=== PATIENT | female | born 1945 | race Caucasian/White ===

== ENCOUNTER → 2016-03-31 | Outpatient (CLI) | payer MEDICARE ==
--- NOTE | 2016-03-31 15:33 | US ---
EXAMINATION TYPE: US venous doppler duplex LE LT DATE OF EXAM: 03/31/2016 3:19 PM COMPARISON: NONE CLINICAL HISTORY: LLE Pain M79.662. Patient takes aspirin daily, left ankle swollen and painful, aj ent unsure if she ever had a previous DVT. TECHNIQUE: Duplex Doppler ultrasound examination of the left lower extremity. FINDINGS: SIDE PERFORMED: left VESSELS IMAGED: External Iliac Vein (EIV) Common Femoral Vein Deep Femoral Vein Greater Saphenous Vein * Femoral Vein Popliteal Vein Small Saphenous Vein * Proximal Calf Veins (* superficial vessels) Left Leg: Negative for DVT Results called to Veronica in the office at the time of the exam. IMPRESSION: No evidence for DVT within the left lower extremity imaged from the groin to the upper calf.
--- NOTE | 2016-03-31 16:01 | XR ---
EXAMINATION TYPE: XR ankle complete LT DATE OF EXAM: 03/31/2016 3:52 PM COMPARISON: NONE HISTORY: Pain, ulceration along the lateral margin of the ankle Three views of the ankle demonstrate the ankle mortise to be intact and symmetric. The joint spaces are preserved. The osseous structures are intact. Postsurgical change and vascular calcifications n oted with diffuse soft tissue edema. No destructive changes. Calcaneal spurs noted IMPRESSION: 1. Diffuse soft tissue edema with no evidence of destructive change or acute fracture. 2. Postsurgical change.
== END | disposition home or self-care (01) ==
LOC: RADUSWWP 14:39
PROVIDERS: ATTEND Family Medicine
DX: M79.662 Pain in left lower leg (principal); R60.0 Localized edema; Z98.890 Other specified postprocedural states

== ENCOUNTER 2016-04-15 10:15 | Inpatient (IN) | payer MEDICARE ==
[2016-04-15] MEDS ORDERED: LEVOFLOXACIN 750MG-D5W PMX 750 MG in DEXTROSE/WATER 1 150ML.BAG IVPB STA (11:46)
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
--- NOTE | 2016-04-15 12:30 | XR ---
EXAMINATION TYPE: XR ankle limited LT DATE OF EXAM: 04/15/2016 12:25 PM COMPARISON: 03/31/2016 HISTORY: Pain TECHNIQUE: 2 views are submitted FINDINGS: Postsurgical changes are stable. Vascular calcification and suggestion of previous trauma involving t he medial malleolus. Persistent diffuse soft tissue edema. Calcaneal spurs are noted. Previous trauma to the fibula and t ibia noted. IMPRESSION: 1. Persistent diffuse soft tissue edema. No destructive changes seen.
[2016-04-15 12:54] LABS: Basophils # (A) 0.1 k/uL (0-0.2); Basophils % (A) 1 %; CH 29.4; CHCM 32.7; Eosinophils # (A) 0.4 k/uL (0-0.7); Eosinophils % (A) 4 %; HCT 32.7 % (34.0-46.0); HDW 2.84; HGB 10.7 gm/dL (11.4-16.0); Luc # (Auto) 0.12; Luc % (Auto) 1; Lymphocytes # (A) 1.6 k/uL (1.0-4.8); Lymphocytes % (A) 16 %; MCH 29.6 pg (25.0-35.0); MCHC 32.8 g/dL (31.0-37.0); MCV 90.4 fL (80.0-100.0); Mean Platelet Volume 6.8; Monocytes # (A) 0.5 k/uL (0-1.0); Monocytes % (A) 5 %; Neutrophils # (A) 6.9 k/uL (1.3-7.7); Neutrophils % (A) 73 %; RBC 3.62 m/uL (3.80-5.40); RDW 13.6 % (11.5-15.5); WBC 9.5 k/uL (3.8-10.6); WBC (Perox) 9.77
[2016-04-15 13:07] LABS: Calcium 9.2 mg/dL (8.4-10.2); Potassium 4.9 mmol/L (3.5-5.1); Total Bilirubin 0.4 mg/dL (0.2-1.3); Total Protein 7.1 g/dL (6.3-8.2)
[2016-04-15] MEDS ORDERED: NALOXONE 0.4 MG/ML 1 ML VIAL IV PRN (13:37)
[2016-04-15 17:37] LABS: Glucose,Whole Blood 142 mg/dL (75-99)
[2016-04-15] MEDS ORDERED: MONTELUKAST 10 MG TAB PO PRN (18:17)
[2016-04-15] MEDS: HYDROcodone/APAP 7.5-325MG 1 EACH TAB PO PRN ×2 (18:55→23:56)
[2016-04-15 19:21] LABS: Hemoglobin A1C 6.2 % (4.2-6.1)
[2016-04-15 21:08] LABS: Glucose,Whole Blood 192 mg/dL (75-99)
[2016-04-15] MEDS: INSULIN GLARGINE 100 UNIT/ML 10 ML VIAL SQ SCH (21:21)
[2016-04-15] MEDS: MIRTAZAPINE 15 MG TAB PO SCH (21:22)
[2016-04-15] MEDS: ATORVASTATIN 40 MG TAB PO SCH (21:22)
[2016-04-15] MEDS: INSULIN LISPRO (humaLOG) 300 UNIT/3 ML VIAL SQ SCH (21:22)
--- NOTE | 2016-04-15 21:27 | HP ---
DATE OF ADMISSION: 04/15/2016 CHIEF COMPLAINT: A 70-year-old white female with left leg infection. HISTORY OF PRESENT ILLNESS: This is a 70-year-old with left ankle infection, redness, swelling to her lower medial ankle, failed outpatient treatment with oral antibiotics and symptoms getting worse. Redness is creeping up the leg. The patient is diabetic. Due to significant increasing redness and swelling of the leg, she was admitted to the hospital. HOME MEDICATIONS: 1. Tenormin. 2. Lipitor. 3. Humalog. 4. ( ). 5. Synthroid. 6. Remeron. 7. Singulair. 8. Lamictal. ALLERGIES: PENICILLIN. REVIEW OF SYSTEMS: PSYCH: Negative. NEURO: Negative. VASCULAR: Negative. Immune: Negative. INTEGUMENT: Negative. Ophthalmologic: Negative. ENDOCRINE: Negative. GASTROINTESTINAL: Negative. : Negative. NEURO: Negative. PAST MEDICAL HISTORY: Asthma, heart failure, COPD, diabetes mellitus, GERD, dyslipidemia. Hypertension, chronic renal failure, chronic anemia, rib fractures. SURGICAL HISTORY: Adenoidectomy, appendectomy, CABG, hysterectomy, orthopedic surgery, tonsillectomy, left thoracentesis, CABG 3 vessels, aortic valve replacement, right rotator cuff, ORIF left lower leg, Lap Arianne, colonoscopy, open heart triple bypass, valve replacement. 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 No smoking. No alcohol. No illicit drugs. FAMILY HISTORY: Brother with coronary artery disease and father with cancer. Father of kidney cancer. Mother coronary disease, CABG, ( ) times two. PHYSICAL EXAMINATION: Temperature 98.1, pulse is 60s to 70s. Respiratory rate 16 to 20. Blood pressure 130s/60s, O2 100% on room air. HEENT: Normocephalic. CARDIOVASCULAR: S1, S2. LUNGS: Clear. HEMATOLOGIC: Negative Homans. GI: Soft, nontender. INTEGUMENT: Left ankle medial redness 6 inches x 4 inches, redness, warmth, limited range of motion. White count 9.5. Hemoglobin is 10.7, BUN is 23, creatinine 1.11. ASSESSMENT: 1. Cellulitis of the left ankle possible Charcot's joint. 2. Acute on chronic renal insufficiency. 3. Diabetes mellitus. 4. Coronary artery disease. 5. Hypertension. IV cefazolin will be given. IV Levaquin will be discontinued. X-ray of ankle to rule out Charcot's joint. Consult with infectious diseases done.
[2016-04-16] MEDS: LEVOTHYROXINE 50 MCG TAB PO SCH (05:52)
[2016-04-16] MEDS: HYDROcodone/APAP 7.5-325MG 1 EACH TAB PO PRN ×3 (05:52→21:11)
[2016-04-16 07:28] LABS: Glucose,Whole Blood 114 mg/dL (75-99)
[2016-04-16] MEDS: INSULIN LISPRO (humaLOG) 300 UNIT/3 ML VIAL SQ SCH ×4 (08:01→21:11)
[2016-04-16] MEDS: CLOPIDOGREL 75 MG TAB PO SCH (08:42)
[2016-04-16] MEDS: LISINOPRIL 5 MG TAB PO SCH (08:42)
[2016-04-16] MEDS: ATENOLOL 25 MG TAB PO SCH (08:42)
[2016-04-16] MEDS: FUROSEMIDE 40 MG TAB PO SCH (08:42)
[2016-04-16] MEDS: lamoTRIgine 25 MG TAB PO SCH (08:42)
[2016-04-16] MEDS: metFORMIN 500 MG TAB PO SCH ×2 (08:42→17:11)
[2016-04-16 08:58] LABS: Basophils # (A) 0.1 k/uL (0-0.2); Basophils % (A) 1 %; CH 29.1; CHCM 31.8; Eosinophils # (A) 0.4 k/uL (0-0.7); Eosinophils % (A) 6 %; HCT 32.1 % (34.0-46.0); HDW 2.83; HGB 10.3 gm/dL (11.4-16.0); Hypochromasia Slight; Luc # (Auto) 0.11; Luc % (Auto) 2; Lymphocytes # (A) 1.3 k/uL (1.0-4.8); Lymphocytes % (A) 18 %; MCH 29.6 pg (25.0-35.0); MCHC 32.2 g/dL (31.0-37.0); Mean Platelet Volume 6.7; Monocytes # (A) 0.4 k/uL (0-1.0); Monocytes % (A) 6 %; Neutrophils % (A) 68 %; RBC 3.49 m/uL (3.80-5.40); RDW 13.6 % (11.5-15.5); WBC 7.3 k/uL (3.8-10.6); WBC (Perox) 7.89
[2016-04-16 11:29] LABS: Glucose,Whole Blood 136 mg/dL (75-99)
[2016-04-16] MEDS ORDERED: LEVOFLOXACIN 750MG-D5W PMX 750 MG in DEXTROSE/WATER 1 150ML.BAG IVPB SCH (13:00)
--- NOTE | 2016-04-16 13:08 | CONS ---
DATE OF CONSULTATION: 04/16/2016 REASON FOR CONSULTATION: Left ankle cellulitis. HISTORY OF PRESENT ILLNESS: The patient is a 70-year-old female who did develop swelling, redness and wound to the left ankle area about a month ago. The patient said it started like a small blister that opened up with drainage. The patient did have some clear drainage and itching and dull pain to area. The patient has been treated with outpatient oral Keflex without any improvement with worsening of swelling, redness and drainage. The patient presented to the [facility] ER. The patient was admitted to the hospital. She was started on Levaquin. I was asked to see the patient for further recommendation regarding antibiotic therapy. Patient denies any high-grade fever, rigors or chills. Patient denies having any chest pain or shortness of breath or cough. No abdominal pain or any diarrhea. REVIEW OF SYSTEMS: CONSTITUTIONAL: Positive for weakness. Denies any high-grade fever. EYES: No complaint. ENT: No complaint. RESPIRATORY: No complaint. CARDIOVASCULAR: No complaint. GENITOURINARY: No complaint. GASTROINTESTINAL: No complaint. MUSCULOSKELETAL: No complaint. INTEGUMENTARY: As per HPI. PSYCHOLOGIC: No complaint. ENDOCRINE: No complaint. NEUROLOGIC: No complaint. PAST MEDICAL HISTORY: Significant for asthma, heart failure, COPD, diabetes mellitus, gastroesophageal reflux disease, hyperlipidemia, hypertension. Past SURGICAL HISTORY: Adenoidectomy, appendectomy, coronary artery bypass grafting, hysterectomy, tonsillectomy and left thoracocentesis. SOCIAL HISTORY: Patient denied smoking, drinking, or drug use. FAMILY HISTORY: Brother with history of coronary artery disease, father with history of kidney cancer and mother with history of coronary artery disease. Allergy to PENICILLIN with a rash, was taking Keflex without any problem. Medications currently include the patient is on [place], Tenormin, Lipitor, Plavix, Lasix, Lantus, Humalog, Lamictal, Synthroid, Zestril, Glucophage, Remeron, Singulair, Narcan, and levofloxacin. On examination, blood pressure is 135/73 with a pulse of 67, temperature 97.1. She is 99% on room air. General description is an elderly female lying in bed in no distress. No tachypnea or accessory muscle of respiration use. HEENT examination shows pallor. There is no scleral icterus. Oral mucous membranes dry. NECK: Trachea central. There is no thyromegaly. LUNGS: Unlabored breathing. Clear to auscultation anteriorly. HEART: S1, S2. Regular rate and rhythm. ABDOMEN: Soft. No tenderness. No guarding. EXTREMITIES: No edema of feet. Examination of the left medial ankle area with superficial ulceration and significant fluctuation or induration noticed slight drainage. NEUROLOGICAL: The patient is awake, alert and oriented x3. Mood and affect normal. LABS: Hemoglobin is 10.3, white count 7.3 with a BUN of 23, creatinine 1.11. Wound cultures obtained which are currently pending. Blood cultures have been obtained, which are currently pending. DIAGNOSTIC IMPRESSION AND PLAN: 1. Patient with left medial ankle wound started as small blister with secondary cellulitis failing outpatient p.o. Keflex therapy in a patient who did not have any underlying hardware, more likely secondary to Gram-positive skin negra underlying any abscess formation and there is no evidence of any bony changes on the plain x-rays. 2. Patient did have a PENICILLIN allergy to limit her antibiotic that will be safe to use. PLAN: 1. Discontinue the Levaquin. 2. We will apply Aquacel Silver dressing to the left medial ankle wound to apply dry and change daily. 3. Will start the patient on vancomycin pharmacy to dose while awaiting for the culture to finalize. 4. Will follow up with clinical condition and cultures to further adjust the medication if needed. Thank you for this consultation. I will follow this patient along with you. KENDRA
[2016-04-16] MEDS ORDERED: IV VANCOMYCIN PER PHARMACY 1 EACH MISC MISCELLANE PRN (13:15)
[2016-04-16] MEDS ORDERED: VANCOMYCIN 1,500 MG in SODIUM CHLORIDE 0.9% 250 ML IVPB ONE (13:30)
--- NOTE | 2016-04-16 14:42 | P.PN ---
Subjective 70-year-old female being seen with the attending on rounds. Currently is sitting up on the edge of the bed. Patient currently is denying any chest pain shortness of breath dizziness or lightheadedness. Did note patient has been seen by infectious disease DrYara Dobson for left ankle cellulitis. Objective - Vital Signs Vital signs: Vital Signs Temp 97.1 F L 04/16/16 07:00 Pulse 67 04/16/16 07:00 Resp 16 04/16/16 07:00 BP 135/73 04/16/16 07:00 Pulse Ox 99 04/16/16 07:00 Intake & Output 04/15/16 04/16/16 04/16/16 18:59 06:59 18:59 Intake Total 450 Balance 450 Intake: Oral 450 Other: # Voids 2 1 - Exam . Physical exam 70-year-old female sitting on his the bed looks older than stated age alert oriented 3 Lungs essentially clear adequate air movement on room air 99% sat no cough noted heart S1-S2 audible regular Abdomen soft nontender reports of nausea vomiting Extremities upper extremities unremarkable there is a dressing on the left ankle area currently dry no edema noted to the feet - Labs CBC & Chem 7: 04/16/16 08:19 04/15/16 12:37 Labs: Abnormal Lab Results - Last 24 Hours (Table) 04/15/16 04/15/16 04/16/16 Range/Units 17:33 20:51 07:26 RBC (3.80-5.40) m/uL Hgb (11.4-16.0) gm/dL Hct (34.0-46.0) % POC Glucose (mg/dL) 142 H 192 H 114 H (75-99) mg/dL 04/16/16 04/16/16 Range/Units 08:19 11:26 RBC 3.49 L (3.80-5.40) m/uL Hgb 10.3 L (11.4-16.0) gm/dL Hct 32.1 L (34.0-46.0) % POC Glucose (mg/dL) 136 H (75-99) mg/dL Assessment and Plan Plan: Impression Present on admission left medial ankle wound started as a small blister with secondary cellulitis failed outpatient treatment Acute on chronic renal failure Type 2 diabetes insulin requiring hemoglobin A1c 6.2 Known coronary artery disease prior coronary artery bypass grafting Hypertension essential Plan IV antibiotics per infectious disease Follow up on the wound culture of the left ankle Resume home meds as appropriate DVT and GI prophylaxis Pain control Wound care per infectious disease The above dictated assessment and findings were discussed with dr muniz Impression and the plan of care have been dictated as directed. Jaida Bailey nurse practitioner acting as a scribe for dr muniz.
[2016-04-16] MEDS: HEPARIN SODIUM,PORCINE 5,000 UNIT/ML 1 ML VIAL SQ SCH (15:13)
[2016-04-16 16:57] LABS: Glucose,Whole Blood 117 mg/dL (75-99)
[2016-04-16] MEDS: FAMOTIDINE 20 MG TAB PO SCH (20:59)
[2016-04-16] MEDS: MIRTAZAPINE 15 MG TAB PO SCH (20:59)
[2016-04-16] MEDS: ATORVASTATIN 40 MG TAB PO SCH (20:59)
[2016-04-16 21:09] LABS: Glucose,Whole Blood 96 mg/dL (75-99)
[2016-04-16] MEDS: INSULIN GLARGINE 100 UNIT/ML 10 ML VIAL SQ SCH (21:11)
[2016-04-17] MEDS: HEPARIN SODIUM,PORCINE 5,000 UNIT/ML 1 ML VIAL SQ SCH ×4 (00:05→23:29)
[2016-04-17] MEDS: LEVOTHYROXINE 50 MCG TAB PO SCH (05:35)
[2016-04-17 07:43] LABS: Glucose,Whole Blood 107 mg/dL (75-99)
[2016-04-17] MEDS: INSULIN LISPRO (humaLOG) 300 UNIT/3 ML VIAL SQ SCH ×4 (07:54→20:56)
[2016-04-17] MEDS: FUROSEMIDE 40 MG TAB PO SCH (08:28)
[2016-04-17] MEDS: metFORMIN 500 MG TAB PO SCH ×2 (08:28→17:31)
[2016-04-17] MEDS: ATENOLOL 25 MG TAB PO SCH (08:28)
[2016-04-17] MEDS: CLOPIDOGREL 75 MG TAB PO SCH (08:28)
[2016-04-17] MEDS: LISINOPRIL 5 MG TAB PO SCH (08:28)
[2016-04-17] MEDS: lamoTRIgine 25 MG TAB PO SCH (08:28)
[2016-04-17] MEDS: HYDROcodone/APAP 7.5-325MG 1 EACH TAB PO PRN ×2 (08:37→17:31)
[2016-04-17 09:02] LABS: Anion Gap 12 mmol/L; Blood Urea Nitrogen 17 mg/dL (7-17); Calcium 9.6 mg/dL (8.4-10.2); Carbon Dioxide 26 mmol/L (22-30); Chloride 104 mmol/L (98-107); Glucose 142 mg/dL (74-99); Non-African American GFR(MDRD) 53 (>60 ml/min/1.73 sqM); Potassium 5.1 mmol/L (3.5-5.1); Sodium 142 mmol/L (137-145)
--- NOTE | 2016-04-17 10:44 | P.PN ---
Subjective 70-year-old female being seen on rounds. Patient reports there is less pain and swelling involving the left ankle. Patients being followed by infectious disease treating patient for failed outpatient treatment for cellulitis involving the left ankle. Dressing was removed there is less redness to the left ankle site skin around the area dry scaly. There are Steri-Strips in place. Noted infectious disease recommending antibiotics vancomycin follow-up on the cultures and Aquasol silver dressing to the left medial ankle. Patient states the left ankle/painful Objective - Vital Signs Vital signs: Vital Signs Temp 98.7 F 04/17/16 07:00 Pulse 73 04/17/16 07:00 Resp 16 04/17/16 07:00 BP 150/61 04/17/16 07:00 Pulse Ox 97 04/17/16 07:00 Intake & Output 04/16/16 04/17/16 04/17/16 18:59 06:59 18:59 Intake Total 750 100 Balance 750 100 Weight 90.5 kg Intake: Oral 750 100 Other: # Voids 1 1 - Exam . Physical exam 70-year-old female sitting up on the edge of the bed pleasant cooperative alert oriented 3 Lungs essentially clear adequate air movement on room air 99% sat no cough noted heart S1-S2 audible regular Abdomen soft nontender reports of nausea vomiting Extremities upper extremities unremarkable there is a dressing on the left ankle area currently dry no edema noted to the feet dressing was removed to the left ankle there are dried Steri-Strips in place. No odor noted. Significant improvement in the redness around the site. Patient states it's less painful with less swelling - Labs CBC & Chem 7: 04/16/16 08:19 04/17/16 08:14 Labs: Abnormal Lab Results - Last 24 Hours (Table) 04/16/16 04/16/16 04/17/16 Range/Units 11:26 16:48 07:39 Glucose (74-99) mg/dL POC Glucose (mg/dL) 136 H 117 H 107 H (75-99) mg/dL 04/17/16 Range/Units 08:14 Glucose 142 H (74-99) mg/dL POC Glucose (mg/dL) (75-99) mg/dL Assessment and Plan Plan: Impression Present on admission left medial ankle wound started as a small blister with secondary cellulitis failed outpatient treatment Acute on chronic renal failure Type 2 diabetes insulin requiring hemoglobin A1c 6.2 Known coronary artery disease prior coronary artery bypass grafting Hypertension essential Plan IV antibiotics per infectious disease currently on IV vancomycin Follow up on the wound culture of the left ankle Resume home meds as appropriate DVT and GI prophylaxis Pain control Wound care per infectious disease use Aquacel silver dressing to the left medial ankle and apply dry and change daily The above dictated assessment and findings were discussed with S/P ready covering for dr muniz Impression and the plan of care have been dictated as directed. Jaida Bailey nurse practitioner acting as a scribe fo S/P ready covering for dr muniz.
[2016-04-17 11:46] LABS: Glucose,Whole Blood 200 mg/dL (75-99)
[2016-04-17] MEDS ORDERED: VANCOMYCIN 1,500 MG in SODIUM CHLORIDE 0.9% 250 ML IVPB SCH (12:00)
[2016-04-17 16:59] LABS: Glucose,Whole Blood 103 mg/dL (75-99)
[2016-04-17] MEDS: MIRTAZAPINE 15 MG TAB PO SCH (20:56)
[2016-04-17] MEDS: INSULIN GLARGINE 100 UNIT/ML 10 ML VIAL SQ SCH (20:56)
[2016-04-17] MEDS: ATORVASTATIN 40 MG TAB PO SCH (20:56)
[2016-04-17] MEDS: FAMOTIDINE 20 MG TAB PO SCH (20:56)
[2016-04-17 20:57] LABS: Glucose,Whole Blood 119 mg/dL (75-99)
[2016-04-18] MEDS: LEVOTHYROXINE 50 MCG TAB PO SCH (06:33)
[2016-04-18 07:10] LABS: Glucose,Whole Blood 132 mg/dL (75-99)
--- NOTE | 2016-04-18 08:10 | PN ---
DATE OF SERVICE: 04/17/2016 Reason for follow up is left ankle wound and cellulitis. INTERVAL HISTORY: The patient is afebrile. Breathing comfortably. Denies significant chest pain, shortness of breath, cough and no abdominal pain or any worsening pain in the left ankle area. No drainage. On examination, blood pressure is 132/61 with a pulse of 70, temperature 98.5. She is 90% on room air. General description is an elderly female, lying in bed in no distress. RESPIRATORY SYSTEM: Unlabored breathing. Clear to auscultation anteriorly. HEART: S1, S2 regular rate and rhythm. ABDOMEN: Soft, no tenderness. Lower extremity currently dressed with no obvious drainage on the dressing. LABS: BUN of 17, creatinine 1.03. Wound culture currently pending. Blood culture so far negative. DIAGNOSTIC IMPRESSION AND PLAN: Patient with left ankle wound with secondary cellulitis. Cultures revealed normal respiratory negra. Will discontinue the vancomycin and start the patient on cefazolin 2 grams q.8. Aquacel silver dressing to the wound. Re-evaluate the wound tomorrow. Continue supportive care.
[2016-04-18 09:56] LABS: Anion Gap 12 mmol/L; Blood Urea Nitrogen 16 mg/dL (7-17); Carbon Dioxide 24 mmol/L (22-30); Chloride 104 mmol/L (98-107); Glucose 192 mg/dL (74-99); Non-African American GFR(MDRD) 52 (>60 ml/min/1.73 sqM); Potassium 4.7 mmol/L (3.5-5.1); Sodium 140 mmol/L (137-145)
[2016-04-18] MEDS: lamoTRIgine 25 MG TAB PO SCH (09:59)
[2016-04-18] MEDS: LISINOPRIL 5 MG TAB PO SCH (09:59)
[2016-04-18] MEDS: HEPARIN SODIUM,PORCINE 5,000 UNIT/ML 1 ML VIAL SQ SCH ×2 (10:00→15:42)
[2016-04-18] MEDS: metFORMIN 500 MG TAB PO SCH ×2 (10:00→17:44)
[2016-04-18] MEDS: ATENOLOL 25 MG TAB PO SCH (10:00)
[2016-04-18] MEDS: INSULIN LISPRO (humaLOG) 300 UNIT/3 ML VIAL SQ SCH ×4 (10:00→20:55)
[2016-04-18] MEDS: CLOPIDOGREL 75 MG TAB PO SCH (10:00)
[2016-04-18] MEDS: FUROSEMIDE 40 MG TAB PO SCH (10:00)
[2016-04-18] MEDS: HYDROcodone/APAP 7.5-325MG 1 EACH TAB PO PRN ×3 (10:03→22:32)
[2016-04-18 12:00] LABS: Glucose,Whole Blood 170 mg/dL (75-99)
[2016-04-18] MEDS: ceFAZolin 2 GM in SODIUM CHLORIDE 0.9% 100 ML IVPB SCH ×2 (13:47→20:32)
[2016-04-18] MEDS: TRIAMCINOLONE 0.1% CREAM 80 GM TUBE TOPICAL SCH ×2 (14:26→20:32)
[2016-04-18] MEDS: NYSTATIN 100,000UNIT/GM CREAM 30 GM TUBE TOPICAL SCH ×2 (14:26→20:32)
--- NOTE | 2016-04-18 14:32 | P.PN ---
Subjective 70-year-old female being seen on rounds this morning. Patient just returned from the the shower. The dressing was removed to inspect the left ankle wound and cellulitis. Is a slight improvement in the cellulitis. Patient states it' s less tender. Patients being followed by infectious disease. Objective - Vital Signs Vital signs: Vital Signs Temp 98.7 F 04/18/16 07:00 Pulse 73 04/18/16 07:00 Resp 16 04/18/16 07:00 BP 128/60 04/18/16 07:00 Pulse Ox 96 04/18/16 07:00 Intake & Output 04/17/16 04/18/16 04/18/16 18:59 06:59 18:59 Intake Total 500 900 Output Total 1 Balance 500 900 -1 Weight 91 kg Intake: Oral 500 900 Output: Urine 1 Other: # Voids 1 1 - Exam Physical exam 70-year-old female resting in bed denied chest pain dizziness or lightheadedness Lungs essentially clear adequate air movement Heart S1-S2 audible regular Abdomen soft reports no frequent stooling no nausea vomiting no palpable organomegaly Extremities upper extremities unremarkable. The left ankle wound Aquasol self silver dressings in place surrounding tissue less reddened less swelling positive tenderness states it's improving the right lower extremity unremarkable - Labs CBC & Chem 7: 04/16/16 08:19 04/18/16 09:15 Labs: Abnormal Lab Results - Last 24 Hours (Table) 04/17/16 04/17/16 04/18/16 Range/Units 16:55 20:51 07:09 Creatinine (0.52-1.04) mg/dL Glucose (74-99) mg/dL POC Glucose (mg/dL) 103 H 119 H 132 H (75-99) mg/dL 04/18/16 04/18/16 Range/Units 09:15 11:57 Creatinine 1.05 H (0.52-1.04) mg/dL Glucose 192 H (74-99) mg/dL POC Glucose (mg/dL) 170 H (75-99) mg/dL Assessment and Plan Plan: Impression Present on admission left medial ankle wound started as a small blister with secondary cellulitis failed outpatient treatment Acute on chronic renal failure Type 2 diabetes insulin requiring hemoglobin A1c 6.2 Known coronary artery disease prior coronary artery bypass grafting Hypertension essential Plan IV antibiotics per infectious disease currently on IV cefazolin 2 g every 8 Follow up on the wound culture of the left ankle Resume home meds as appropriate DVT and GI prophylaxis Pain control Wound care per infectious disease use Aquacel silver dressing to the left medial ankle and apply dry and change daily The above dictated assessment and findings were discussed with S/P ready covering for dr muniz Impression and the plan of care have been dictated as directed. Jaida Bailey nurse practitioner acting as a scribe fo S/P ready covering for dr muniz.
[2016-04-18 16:53] LABS: Glucose,Whole Blood 99 mg/dL (75-99)
--- NOTE | 2016-04-18 18:54 | PN ---
DATE OF SERVICE: 04/18/2016 Reason for follow-up is left ankle wound and cellulitis. INTERVAL HISTORY: The patient is afebrile. He still complains of some itching to the left ankle wound area. Patient denies having chest pain. No shortness of breath or cough. No abdominal pain or any diarrhea. She had tolerated cefazolin without any problem. On examination, blood pressure is 128/60 with a pulse of 73, temperature 98.7. She is a 96% on room air. General description is an elderly female lying in bed in no distress. RESPIRATORY SYSTEM: Unlabored breathing. Clear to auscultation anteriorly. HEART: S1, S2 regular rate and rhythm. ABDOMEN: Soft, no tenderness. Left ankle wound is resolved, now with erythematous rash. No significant drainage. LABS: BUN of 16, creatinine 1.5. Wound culture with normal negra. Blood culture negative. DIAGNOSTIC IMPRESSION AND PLAN: Patient with wound to the left middle ankle area. The wound is resolved with Aquacel silver, still has some erythematous patch. Will apply Mycolog cream to the same area followed by an Bill wrap to keep the swelling down and continue on cefazolin. MTDD
[2016-04-18] MEDS: MIRTAZAPINE 15 MG TAB PO SCH (20:32)
[2016-04-18] MEDS: FAMOTIDINE 20 MG TAB PO SCH (20:32)
[2016-04-18] MEDS: ATORVASTATIN 40 MG TAB PO SCH (20:32)
[2016-04-18 20:51] LABS: Glucose,Whole Blood 113 mg/dL (75-99)
[2016-04-18] MEDS: INSULIN GLARGINE 100 UNIT/ML 10 ML VIAL SQ SCH (21:08)
[2016-04-19] MEDS: HEPARIN SODIUM,PORCINE 5,000 UNIT/ML 1 ML VIAL SQ SCH ×2 (00:47→09:40)
[2016-04-19] MEDS: ceFAZolin 2 GM in SODIUM CHLORIDE 0.9% 100 ML IVPB SCH ×2 (04:08→12:20)
[2016-04-19] MEDS: HYDROcodone/APAP 7.5-325MG 1 EACH TAB PO PRN (04:08)
[2016-04-19] MEDS: LEVOTHYROXINE 50 MCG TAB PO SCH (06:52)
[2016-04-19 07:24] LABS: Glucose,Whole Blood 112 mg/dL (75-99)
[2016-04-19 08:54] LABS: Anion Gap 11 mmol/L; Blood Urea Nitrogen 13 mg/dL (7-17); Calcium 9.5 mg/dL (8.4-10.2); Carbon Dioxide 28 mmol/L (22-30); Chloride 103 mmol/L (98-107); Glucose 151 mg/dL (74-99); Non-African American GFR(MDRD) 53 (>60 ml/min/1.73 sqM); Potassium 4.7 mmol/L (3.5-5.1); Sodium 142 mmol/L (137-145)
[2016-04-19 09:39] VITALS: BP 159/48; PULSE 91; RESP 16; TEMP 97.6
[2016-04-19] MEDS: NYSTATIN 100,000UNIT/GM CREAM 30 GM TUBE TOPICAL SCH (09:40)
[2016-04-19] MEDS: metFORMIN 500 MG TAB PO SCH (09:40)
[2016-04-19] MEDS: CLOPIDOGREL 75 MG TAB PO SCH (09:40)
[2016-04-19] MEDS: ATENOLOL 25 MG TAB PO SCH (09:40)
[2016-04-19] MEDS: FUROSEMIDE 40 MG TAB PO SCH (09:40)
[2016-04-19] MEDS: LISINOPRIL 5 MG TAB PO SCH (09:40)
[2016-04-19] MEDS: lamoTRIgine 25 MG TAB PO SCH (09:40)
[2016-04-19] MEDS: INSULIN LISPRO (humaLOG) 300 UNIT/3 ML VIAL SQ SCH ×2 (09:40→12:20)
[2016-04-19] MEDS: TRIAMCINOLONE 0.1% CREAM 80 GM TUBE TOPICAL SCH (09:40)
[2016-04-19] MEDS ORDERED: VANCOMYCIN TROUGH DUE 1 EACH MISC MISCELLANE ONE (11:00)
--- NOTE | 2016-04-19 11:33 | P.PN ---
Subjective Principal diagnosis: Lower show me cellulitis Patient seen and examined. Patient states that her cellulitis is improving. She denies any fevers or chills. The case is discussed with Dr. Martel who is agreeable for discharge. Objective - Vital Signs Vital signs: Vital Signs Temp 97.6 F 04/19/16 07:00 Pulse 91 04/19/16 07:00 Resp 16 04/19/16 07:00 BP 159/48 04/19/16 07:00 Pulse Ox 98 04/19/16 07:00 Intake & Output 04/18/16 04/19/16 04/19/16 18:59 06:59 18:59 Intake Total 540 Output Total 1 Balance -1 540 Weight 90.5 kg Intake: Oral 540 Output: Urine 1 Other: # Voids 1 - Exam 70-year-old female resting in bed denied chest pain dizziness or lightheadedness Lungs essentially clear adequate air movement Heart S1-S2 audible regular Abdomen soft reports no frequent stooling no nausea vomiting no palpable organomegaly Extremities upper extremities unremarkable. The left ankle wound Aquasol self silver dressings in place surrounding tissue less reddened less swelling positive tenderness states it's improving the right lower extremity unremarkable - Labs CBC & Chem 7: 04/16/16 08:19 04/19/16 08:15 Labs: Abnormal Lab Results - Last 24 Hours (Table) 04/18/16 04/18/16 04/19/16 Range/Units 11:57 20:50 07:12 Glucose (74-99) mg/dL POC Glucose (mg/dL) 170 H 113 H 112 H (75-99) mg/dL 04/19/16 Range/Units 08:15 Glucose 151 H (74-99) mg/dL POC Glucose (mg/dL) (75-99) mg/dL Assessment and Plan Plan: Present on admission left medial ankle wound started as a small blister with secondary cellulitis failed outpatient treatment Acute on chronic renal failure Type 2 diabetes insulin requiring hemoglobin A1c 6.2 Known coronary artery disease prior coronary artery bypass grafting Hypertension essential Plan Follow up on the wound culture of the left ankle Resume home meds as appropriate DVT and GI prophylaxis Pain control Wound care per infectious disease use Aquacel silver dressing to the left medial ankle and apply dry and change daily Case is discussed with Dr. Martel. Patient will be discharged today on Keflex and Mycolog cream. She will follow up with him in the office next week.
--- NOTE | 2016-04-19 11:42 | P.DS ---
Providers Date of admission: 04/15/16 13:37 Expected date of discharge: 04/19/16 Attending physician: Eric Aguirre Consults: [facility] Course: Patient is a pleasant 70-year-old female presenting to the emergency department complaining of left ankle infection. Patient has had 24 hours of antibiotics prior to admission. Patient feels symptoms are getting worse. Redness has extended beyond the line. Pain is creeping up the leg. No fevers. No history of similar symptoms previous a. Patient is diabetic. Infectious disease was consulted and the patient's antibiotics were adjusted. The patient states her leg is improving. She has had no fevers or chills. Patient Condition at Discharge: Good Plan - Discharge Summary New Discharge Prescriptions: Cephalexin [Keflex] 500 mg PO Q6HR #30 cap Nystatin/Triamcin Cream [Mycolog 100,000-0.1 Unit/gm-% Cream] 1 applic TOPICAL BID #30 cream Discharge Medication List Clopidogrel [Plavix] 75 mg PO DAILY tab 07/19/15 [Rx] Furosemide [Lasix] 40 mg PO DAILY #0 tab 07/19/15 [Rx] Lisinopril [Zestril] 5 mg PO DAILY tab 07/19/15 [Rx] metFORMIN HCL [Glucophage] 500 mg PO BID-W/MEALS tab 07/19/15 [Rx] INSULIN LISPRO (humaLOG) [humaLOG (formulary)] See Protocol SQ TID 07/29/15 [ History] Atenolol [Tenormin] 25 mg PO DAILY 04/15/16 [History] Atorvastatin [Lipitor] 40 mg PO HS 04/15/16 [History] Glucagon Emergency Kit 1 mg SQ ONCE 04/15/16 [History] Insulin Glargine,Hum.rec.anlog [Toujose cruzo Solostar] 16 units SQ HS 04/15/16 [ History] Levothyroxine Sodium [Synthroid] 50 mcg PO DAILY 04/15/16 [History] Mirtazapine [Remeron] 15 mg PO HS 04/15/16 [History] Montelukast [Singulair] 10 mg PO HS PRN 04/15/16 [History] lamoTRIgine [LaMICtal] 25 mg PO DAILY 04/15/16 [History] Cephalexin [Keflex] 500 mg PO Q6HR #30 cap 04/19/16 [Rx] Nystatin/Triamcin Cream [Mycolog 100,000-0.1 Unit/gm-% Cream] 1 applic TOPICAL BID #30 cream 04/19/16 [Rx] Follow up Appointment(s)/Referral(s): Eric Aguirre MD [Primary Care Provider] - 1-2 days My Dobson MD [STAFF PHYSICIAN] - 1 Week Patient Instructions/Handouts: Heart Failure (DC), Type 2 Diabetes in Adults ( DC) Activity/Diet/Wound Care/Special Instructions: [facility] home care (#[phone]) Discharge Disposition: HOME SELF-CARE
[2016-04-19 11:58] LABS: Glucose,Whole Blood 131 mg/dL (75-99)
== END 2016-04-19 13:39 | disposition home health service (06) | DRG 603 ==
LOC: EC 10:15 → 4MS4W 13:37
PROVIDERS: ADMIT Family Medicine; ATTEND Family Medicine
DX: L03.116 Cellulitis of left lower limb (principal); N17.9 Acute kidney failure, unspecified; E11.22 Type 2 diabetes mellitus with diabetic chronic kidney disease; I50.9 Heart failure, unspecified; E78.5 Hyperlipidemia, unspecified; I12.9 Hypertensive chronic kidney disease with stage 1 through stage 4 chronic kidney disease, or unspecified chronic kidney disease; I25.10 Atherosclerotic heart disease of native coronary artery without angina pectoris; J44.9 Chronic obstructive pulmonary disease, unspecified; J45.909 Unspecified asthma, uncomplicated; K21.9 Gastro-esophageal reflux disease without esophagitis; N18.9 Chronic kidney disease, unspecified; Z79.4 Long term (current) use of insulin; Z82.49 Family history of ischemic heart disease and other diseases of the circulatory system; Z88.0 Allergy status to penicillin; Z95.1 Presence of aortocoronary bypass graft; Z95.2 Presence of prosthetic heart valve; Z79.899 Other long term (current) drug therapy
CPT/HCPCS: 36415; 80048; 80053; 83036; 85025; 87040; 87070; 87205; 96365; 99284

== ENCOUNTER → 2016-07-03 | Outpatient (CLI) | payer MEDICARE ==
--- NOTE | 2016-07-07 07:39 | MM ---
Reason for exam: screening (asymptomatic). Last mammogram was performed 2 years and 9 months ago. History: Patient is postmenopausal. Family history of breast cancer in maternal grandmother. Physical Findings: A clinical breast exam by your physician is recommended on an annual basis and results should be correlated with mammographic findings. MG 3D Screening Mammo W/Cad Bilateral CC and MLO view(s) were taken. Prior study comparison: September 22, 2013, bilateral MG screening mammo w CAD. August 27, 2012, bilateral digital screening mammo w/CAD. There are scattered fibroglandular densities. No significant changes when compared with prior studies. ASSESSMENT: Negative, BI-RAD 1 RECOMMENDATION: Routine screening mammogram of both breasts in 1 year.
== END | disposition home or self-care (01) ==
LOC: RADMAMWWP 13:47
PROVIDERS: ATTEND Family Medicine
DX: Z12.31 Encounter for screening mammogram for malignant neoplasm of breast (principal); Z80.3 Family history of malignant neoplasm of breast
CPT/HCPCS: 77063; G0202

== ENCOUNTER → 2016-07-31 | Outpatient (CLI) | payer MEDICARE ==
--- NOTE | 2016-07-31 14:57 | XR ---
EXAMINATION TYPE: XR wrist limited LT DATE OF EXAM ORDERED: 07/31/2016 HISTORY: M25.532 Pain in left wrist. COMPARISON: None. FINDINGS: There is a minimally displaced, intra-articular fracture of the radial styloid. No definit e ulnar fracture is identified. IMPRESSION: MINIMALLY DISPLACED INTRA-ARTICULAR FRACTURE OF THE LEFT RADIAL STYLOID.
--- NOTE | 2016-07-31 15:04 | CT ---
EXAMINATION TYPE: CT lumbar spine wo con DATE OF EXAM: 07/31/2016 2:55 PM COMPARISON: Previous study dated 03/01/2013 HISTORY: Low back pain for years CT DLP: 1545.4 mGycm Automated exposure control for dose reduction was used. Unenhanced CT of the lumbar spine was performed. Bone and soft tissue window settings are submitted as well as coronal and sagittal reconstructions. FINDINGS: Visualized portions of the lungs are clear. There is moderate atheromatous calcification of the visualized arterial tree. Paraspinal soft tissues are otherwise normal. Vertebral body height and alignment are maintained. There is no spondylolysis or spondylolisthesis. At T12-L1, is hypertrophic spondylosis. Intervertebral foramina are well maintained. There is no sign ificant compressive discopathy. There is mild degenerative changes in the facets. L1-L2: There is mild hypertrophic spondylosis anteriorly. The intervertebral foramina are widely main tained. There is a diffuse disc displacement mildly effacing the thecal sac. There are mild degenerat jody changes in the facets. L2-L3: There is hypertrophic spondylosis anteriorly. The intervertebral foramina are widely maintaine d. There is a diffuse disc displacement. There is hypertrophic change in the facets. L3-L4: There is hypertrophic spondylosis anteriorly. Intervertebral foramina are widely maintained. T here is a diffuse disc displacement. There are hypertrophic changes in the facets. L4-L5: There is mild hypertrophic spondylosis anteriorly. Intervertebral foramina are widely patent. There is a diffuse disc displacement. This hypertrophic change in the facets. There is mild to modera te central canal stenosis. There is bilateral lateral recess stenosis. L5-S1: There are mild hypertrophic changes in the facet IMPRESSION: 1. NO ACUTE OSSEOUS LESION. 2. DIFFUSE DEGENERATIVE DISC DISEASE AND FACET ARTHROPATHY. 3. MODERATE CENTRAL CANAL STENOSIS AND LEFT-SIDED LATERAL RECESS STENOSIS, L4-5.
== END | disposition home or self-care (01) ==
LOC: RADCTMAIN 14:29
PROVIDERS: ATTEND Family Medicine
DX: M48.06 Spinal stenosis, lumbar region (principal); M51.36 Other intervertebral disc degeneration, lumbar region; M48.8X6 Other specified spondylopathies, lumbar region; S62.102A Fracture of unspecified carpal bone, left wrist, initial encounter for closed fracture
CPT/HCPCS: 72131

== ENCOUNTER 2016-09-22 14:06 | Inpatient (IN) | payer MEDICARE ==
--- NOTE | 2016-09-22 17:40 | XR ---
EXAMINATION TYPE: XR ankle limited LT, XR foot limited LT DATE OF EXAM: 09/22/2016 CLINICAL HISTORY: Cellulitis foot and ankle. TECHNIQUE: Frontal and lateral images of the left ankle and foot are obtained. COMPARISON: Left ankle x-ray April 15, 2016.. FINDINGS: There is no acute fracture/dislocation evident in the left ankle. Osseous structures are demineralized. There is partial visualization of fixation hardware through healed fracture of distal tibial diaphysis. There is partial visualization of healed fracture fibular diaphysis just superior t o this. The ankle mortise appears within normal limits. Mild to moderate diffuse subcutaneous edema i s redemonstrated. Well-corticated ossific fragmentation from medial malleolus could reflect old avuls ion fracture. Vascular calcification is again seen. There is no acute fracture or dislocation evident in the left foot. Flexion in toes limits evaluation at this level. Small inferior calcaneal spur is again seen. Mild to diffuse soft tissue swelling is present slightly more prominent midfoot dorsal surface. No suspicious cortical destruction or periost eal reaction is seen. IMPRESSION: There is demineralization with soft tissue swelling and other findings as noted above. N o convincing radiographic evidence for acute osteomyelitis.
[2016-09-22 17:47] LABS: Basophils # (A) 0.1 k/uL (0-0.2); Basophils % (A) 1 %; CH 30.8; CHCM 32.6; Eosinophils # (A) 0.1 k/uL (0-0.7); Eosinophils % (A) 1 %; HCT 32.9 % (34.0-46.0); HDW 3.03; HGB 10.9 gm/dL (11.4-16.0); Luc # (Auto) 0.08; Luc % (Auto) 1; Lymphocytes # (A) 0.9 k/uL (1.0-4.8); Lymphocytes % (A) 9 %; MCH 31.6 pg (25.0-35.0); MCHC 33.2 g/dL (31.0-37.0); Mean Platelet Volume 7.5; Monocytes # (A) 0.6 k/uL (0-1.0); Monocytes % (A) 5 %; Neutrophils # (A) 9.3 k/uL (1.3-7.7); Neutrophils % (A) 84 %; RBC 3.46 m/uL (3.80-5.40); RDW 14.1 % (11.5-15.5); WBC (Perox) 11.42
[2016-09-22] MEDS: metFORMIN 500 MG TAB PO SCH (17:48)
[2016-09-22] MEDS: INSULIN LISPRO (humaLOG) 300 UNIT/3 ML VIAL SQ SCH (17:48)
[2016-09-22] MEDS: SODIUM CHLORIDE 0.9% 1,000 ML IV SCH (17:49)
[2016-09-22 17:52] LABS: Glucose,Whole Blood 61 mg/dL (75-99)
[2016-09-22 17:52] LABS: Glucose,Whole Blood 51 mg/dL (75-99)
[2016-09-22 17:58] LABS: Calcium 9.4 mg/dL (8.4-10.2); Potassium 4.9 mmol/L (3.5-5.1); Total Bilirubin 0.4 mg/dL (0.2-1.3)
[2016-09-22 18:19] LABS: Glucose,Whole Blood 84 mg/dL (75-99)
[2016-09-22 18:48] LABS: Erythrocyte Sedimentation Rate 68 mm/hr (0-20)
[2016-09-22 18:57] LABS: Hemoglobin A1C 6.6 % (4.2-6.1)
[2016-09-22] MEDS: ATORVASTATIN 40 MG TAB PO SCH (21:18)
[2016-09-22] MEDS: MONTELUKAST 10 MG TAB PO SCH (21:18)
[2016-09-22] MEDS: ATENOLOL 25 MG TAB PO SCH (21:18)
[2016-09-22] MEDS: FUROSEMIDE 40 MG TAB PO SCH (21:18)
[2016-09-22] MEDS: MIRTAZAPINE 15 MG TAB PO SCH (21:18)
[2016-09-22 21:20] LABS: Glucose,Whole Blood 134 mg/dL (75-99)
[2016-09-23 01:28] LABS: Glucose,Whole Blood 113 mg/dL (75-99)
[2016-09-23] MEDS: INSULIN LISPRO (humaLOG) 300 UNIT/3 ML VIAL SQ SCH ×5 (01:33→21:44)
[2016-09-23] MEDS: INSULIN DETEMIR 100 UNIT/ML 10 ML VIAL SQ SCH ×2 (01:33→21:43)
[2016-09-23] MEDS: LEVOTHYROXINE 50 MCG TAB PO SCH (06:24)
[2016-09-23] MEDS: SODIUM CHLORIDE 0.9% 1,000 ML IV SCH ×2 (06:24→20:42)
[2016-09-23 07:41] LABS: Glucose,Whole Blood 103 mg/dL (75-99)
[2016-09-23] MEDS: metFORMIN 500 MG TAB PO SCH ×2 (07:56→17:58)
[2016-09-23] MEDS: ATENOLOL 25 MG TAB PO SCH ×2 (07:56→21:43)
[2016-09-23] MEDS: POTASSIUM CHLORIDE ER 10 MEQ TAB.ER.PRT PO SCH (07:56)
[2016-09-23] MEDS: ASPIRIN 81 MG CHEW PO SCH (07:57)
[2016-09-23] MEDS: FUROSEMIDE 40 MG TAB PO SCH ×2 (07:57→16:28)
[2016-09-23] MEDS: CLOPIDOGREL 75 MG TAB PO SCH (07:57)
[2016-09-23] MEDS: lamoTRIgine 25 MG TAB PO SCH (07:58)
[2016-09-23] MEDS: LISINOPRIL 5 MG TAB PO SCH (07:59)
[2016-09-23] MEDS: HYDROcodone/APAP 7.5-325MG 1 EACH TAB PO PRN ×3 (09:21→21:45)
[2016-09-23] MEDS ORDERED: NYSTAT-TRIAMCIN 100,000-0.1 UNIT/GM-% CREAM 30 GM TUBE TOPICAL SCH (10:30)
[2016-09-23] MEDS: TRIAMCINOLONE 0.1% CREAM 80 GM TUBE TOPICAL SCH ×2 (12:32→21:45)
[2016-09-23] MEDS: NYSTATIN 100,000UNIT/GM CREAM 30 GM TUBE TOPICAL SCH ×2 (12:33→21:44)
[2016-09-23 12:49] LABS: Glucose,Whole Blood 156 mg/dL (75-99)
[2016-09-23] MEDS: FERROUS SULFATE 325 MG TAB PO SCH (12:53)
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
[2016-09-23] MEDS: ceFAZolin 2 GM in SODIUM CHLORIDE 0.9% 100 ML IVPB SCH (16:27)
[2016-09-23 17:48] LABS: Glucose,Whole Blood 115 mg/dL (75-99)
[2016-09-23 21:03] LABS: Glucose,Whole Blood 123 mg/dL (75-99)
[2016-09-23] MEDS: MONTELUKAST 10 MG TAB PO SCH (21:43)
[2016-09-23] MEDS: ATORVASTATIN 40 MG TAB PO SCH (21:43)
[2016-09-23] MEDS: MIRTAZAPINE 15 MG TAB PO SCH (21:43)
[2016-09-24] MEDS: ceFAZolin 2 GM in SODIUM CHLORIDE 0.9% 100 ML IVPB SCH ×3 (00:21→21:39)
[2016-09-24] MEDS: LEVOTHYROXINE 50 MCG TAB PO SCH (06:32)
[2016-09-24 07:32] LABS: Glucose,Whole Blood 108 mg/dL (75-99)
[2016-09-24] MEDS: INSULIN LISPRO (humaLOG) 300 UNIT/3 ML VIAL SQ SCH ×4 (07:57→21:40)
[2016-09-24] MEDS: ATENOLOL 25 MG TAB PO SCH ×2 (07:59→21:39)
[2016-09-24] MEDS: lamoTRIgine 25 MG TAB PO SCH (07:59)
[2016-09-24] MEDS: HYDROcodone/APAP 7.5-325MG 1 EACH TAB PO PRN ×3 (07:59→21:38)
[2016-09-24] MEDS: CLOPIDOGREL 75 MG TAB PO SCH (08:00)
[2016-09-24] MEDS: ASPIRIN 81 MG CHEW PO SCH (08:00)
[2016-09-24] MEDS: metFORMIN 500 MG TAB PO SCH ×2 (08:00→18:11)
[2016-09-24] MEDS: FUROSEMIDE 40 MG TAB PO SCH ×2 (08:00→16:04)
[2016-09-24] MEDS: POTASSIUM CHLORIDE ER 10 MEQ TAB.ER.PRT PO SCH (08:00)
[2016-09-24] MEDS: LISINOPRIL 5 MG TAB PO SCH (08:00)
[2016-09-24] MEDS: NYSTATIN 100,000UNIT/GM CREAM 30 GM TUBE TOPICAL SCH ×2 (08:01→21:40)
[2016-09-24] MEDS: TRIAMCINOLONE 0.1% CREAM 80 GM TUBE TOPICAL SCH ×2 (08:15→21:40)
[2016-09-24] MEDS: SODIUM CHLORIDE 0.9% 1,000 ML IV SCH (11:17)
[2016-09-24 12:03] LABS: Glucose,Whole Blood 135 mg/dL (75-99)
[2016-09-24 12:07] LABS: Basophils # (A) 0.1 k/uL (0-0.2); Basophils % (A) 1 %; CH 30.7; CHCM 32.9; Eosinophils # (A) 0.3 k/uL (0-0.7); Eosinophils % (A) 3 %; HCT 28.6 % (34.0-46.0); HDW 3.06; HGB 9.5 gm/dL (11.4-16.0); Luc % (Auto) 1; Lymphocytes # (A) 1.4 k/uL (1.0-4.8); Lymphocytes % (A) 18 %; MCH 31.2 pg (25.0-35.0); MCHC 33.2 g/dL (31.0-37.0); Mean Platelet Volume 7.6; Monocytes # (A) 0.4 k/uL (0-1.0); Monocytes % (A) 5 %; Neutrophils # (A) 5.8 k/uL (1.3-7.7); Neutrophils % (A) 72 %; RBC 3.04 m/uL (3.80-5.40); RDW 14.2 % (11.5-15.5); WBC 8.1 k/uL (3.8-10.6); WBC (Perox) 8.51
[2016-09-24 12:36] LABS: Calcium 8.4 mg/dL (8.4-10.2); Potassium 5.6 mmol/L (3.5-5.1)
[2016-09-24] MEDS: FERROUS SULFATE 325 MG TAB PO SCH (12:55)
--- NOTE | 2016-09-24 13:00 | HP ---
CHIEF COMPLAINT: 70 -year-old white female with severe redness and swelling of the left medial ankle worsening over the past month. HISTORY OF PRESENT ILLNESS: This is a 70-year-old white female with history of diabetes mellitus, states since April her leg has been red and swollen. Had initially improved with prior treatments but then got worse to the point where she had clear drainage. High grade fevers. No rigors or chills. Significant soft tissue swelling. White count was elevated. She was started on Cefazolin due to significant swelling, redness and weeping wound of the left ankle. History of diabetes. REVIEW OF SYSTEMS: Constitutional: Weakness. Ophthalmological: Negative. ENT: Negative. Respiratory: Negative. Musculoskeletal: Chronic myalgias in joints. : negative. GI: Negative. Musculoskeletal: Negative. Integument: Negative except for mentioned above. Neurological: Negative. Endocrine: Negative. Neuro : Negative. Past medical history of asthma, coronary artery disease, heart failure, COPD, diabetes mellitus, GERD, dyslipidemia, hypertension, myocardial infarction. Chronic anemia, chronic low back pain. Rib fracture, left pleural effusion. Chronic CHF. Adenoidectomy, appendectomy, CABG surgery, heart catheterization, hysterectomy, orthopedic surgery, tonsillectomy, aortic valve replacement. Right rotator cuff repair, ORIF left lower leg, Lap Arianne fundoplasty, colonoscopy. Social history: No smoking. Family history: Brother with coronary artery disease. ( ) in 2004. Father with cancer, kidney cancer ( ) mother coronary artery disease, CABG, age 92. Home medications: 1. Insulin Lispro 30 units subcu b.i.d. 2. Tenormin 25 b.i.d. 3. Lipitor 40 daily. 4. Synthroid 50 mcg daily. 5. Remeron 15 daily. 6. Senna 10 mg daily. 7. Lamictal 25 daily. 8. Aspirin 81 mg daily. 9. Ferrous sulfate 325 daily. 10. ( ) b.i.d. 11. Klor-Con 10 meq daily. 12. [place] 7.5 every six hours prn. ALLERGIES: PENICILLIN. Temp 97.6, pulse 53 to 65. Respiratory rate 16-20. Blood pressure 120s to 140s over 60s. O2 96 to 100% on room air. General: White female well developed in no acute distress. Ophthalmological: Pupils equal, round and reactive to light and accommodation. ENT external appearance of ear canals within normal limits. Respiratory: Lungs clear. Cardiovascular: Heart S1, S2. Abdomen soft. Extremities show a left medial ankle area with superficial ulceration and redness and clear drainage. Some ( ) medial anterior ankle and medial ankle. Neurological: Alert and oriented times three. Hemoglobin 10.9, creatinine 1.3, BUN 16. ASSESSMENT AND PLAN: Acute cellulitis left ankle . PLAN: Increase cefazolin to 2 gm every 8 hours. Mycolog cream b.i.d. home medications. Accu-Chek protocol. Please see further orders. Awaiting infectious disease consult with Dr. Dobson. KENDRA
[2016-09-24 17:36] LABS: Glucose,Whole Blood 121 mg/dL (75-99)
--- NOTE | 2016-09-24 19:55 | PN ---
DATE OF SERVICE: 09/24/2016 REASON FOR FOLLOWUP: Left medial ankle wound and cellulitis. INTERVAL HISTORY: The patient is afebrile. She is feeling better overall. Itching and swelling have improved with the current treatment. Denies significant chest pain, shortness of breath or cough. No abdominal pain or any diarrhea. On examination, blood pressure is 118/56 with a pulse of 54, temperature 96.7. She is 99% on room air. General description is an elderly female lying in bed in no distress. RESPIRATORY SYSTEM: Unlabored breathing. Clear to auscultation anteriorly. HEART: S1, S2. Regular rate and rhythm. ABDOMEN: Soft. No tenderness. LEFT FOOT: Currently dressed up. No obvious drainage on the dressing. LABS: Hemoglobin 9.5, white count 8.1. BUN 15, creatinine 1.32. DIAGNOSTIC IMPRESSION AND PLAN: Patient with a left medial ankle cellulitis and wound. Continue the patient on the Mycolog cream along with cefazolin. If overall improvement, hopefully will be able to finish therapy with oral antibiotic. Continue supportive care. KENDRA
[2016-09-24 20:38] LABS: Glucose,Whole Blood 134 mg/dL (75-99)
[2016-09-24] MEDS: MONTELUKAST 10 MG TAB PO SCH (21:39)
[2016-09-24] MEDS: MIRTAZAPINE 15 MG TAB PO SCH (21:39)
[2016-09-24] MEDS: INSULIN DETEMIR 100 UNIT/ML 10 ML VIAL SQ SCH (21:39)
[2016-09-24] MEDS: ATORVASTATIN 40 MG TAB PO SCH (21:39)
[2016-09-24 23:43] VITALS: RESP 16
[2016-09-25] MEDS: LEVOTHYROXINE 50 MCG TAB PO SCH (06:26)
[2016-09-25 07:38] VITALS: BP 118/61; PULSE 53; TEMP 97.3
[2016-09-25 07:39] LABS: Glucose,Whole Blood 98 mg/dL (75-99)
[2016-09-25] MEDS: INSULIN LISPRO (humaLOG) 300 UNIT/3 ML VIAL SQ SCH ×2 (08:09→12:13)
[2016-09-25] MEDS: lamoTRIgine 25 MG TAB PO SCH (08:11)
[2016-09-25] MEDS: POTASSIUM CHLORIDE ER 10 MEQ TAB.ER.PRT PO SCH (08:11)
[2016-09-25] MEDS: ATENOLOL 25 MG TAB PO SCH (08:11)
[2016-09-25] MEDS: metFORMIN 500 MG TAB PO SCH (08:11)
[2016-09-25] MEDS: ASPIRIN 81 MG CHEW PO SCH (08:11)
[2016-09-25] MEDS: LISINOPRIL 5 MG TAB PO SCH (08:11)
[2016-09-25] MEDS: FUROSEMIDE 40 MG TAB PO SCH (08:11)
[2016-09-25] MEDS: CLOPIDOGREL 75 MG TAB PO SCH (08:11)
[2016-09-25] MEDS: NYSTATIN 100,000UNIT/GM CREAM 30 GM TUBE TOPICAL SCH (08:12)
[2016-09-25] MEDS: HYDROcodone/APAP 7.5-325MG 1 EACH TAB PO PRN (08:17)
[2016-09-25] MEDS: ceFAZolin 2 GM in SODIUM CHLORIDE 0.9% 100 ML IVPB SCH (09:59)
[2016-09-25] MEDS: TRIAMCINOLONE 0.1% CREAM 80 GM TUBE TOPICAL SCH (10:00)
--- NOTE | 2016-09-25 11:29 | PN ---
CHIEF COMPLAINT: Left medial ankle wound and cellulitis. The patient is improving with IV Zosyn, Kefzol 2 gm q8h. Denies chest pain or shortness of breath. Blood pressure 118/56, temp 96, oxygen saturation 99% on room air. ENDOCRINE: BMI is over 30. HEART: S1/S2. LUNG: Clear. GI: Soft. Creatinine 1.32. Hemoglobin 9.8. ASSESSMENT; Cellulitis of the left medial ankle. Continue on cefazolin, Mycolog cream. Possible oral antibiotics tomorrow for discharge home. MTDD
[2016-09-25 11:56] LABS: Glucose,Whole Blood 131 mg/dL (75-99)
[2016-09-25] MEDS: FERROUS SULFATE 325 MG TAB PO SCH (12:13)
--- NOTE | 2016-09-25 15:56 | PN ---
DATE OF SERVICE: 09/25/16 REASON FOR FOLLOW UP: Left medial ankle wound and cellulitis. INTERVAL HISTORY: The patient is afebrile. She is breathing comfortably. Left medial ankle area rash has decreased in intensity. The redness has improved. Overall pain and itching has improved. The patient denies any drainage from it. Denies significant chest pain. No shortness of breath or cough. On examination, blood pressure 118/61, pulse 53, temperature 97.3, she is 95% on room air. General description is an elderly female lying in the bed, in no distress. Respiratory: Unlabored breathing. Clear to auscultation anteriorly. Heart: S1, S2 regular rate and rhythm. Abdomen soft, no tenderness. Left medial ankle area overall drainage has increased in intensity. No redness. No skin breakdown. No drainage. DIAGNOSTIC IMPRESSION AND PLAN: Patient with left medial ankle cellulitis and possible component of stasis dermatitis. Plan at this time is to finish therapy with Mycolog, Humalog, oral Keflex with outpatient follow. KENDRA
== END 2016-09-25 15:38 | disposition home or self-care (01) | DRG 603 ==
LOC: 4MS4W 14:27
PROVIDERS: ADMIT Family Medicine; ATTEND Family Medicine
DX: L03.116 Cellulitis of left lower limb (principal); I11.0 Hypertensive heart disease with heart failure; I50.9 Heart failure, unspecified; J44.9 Chronic obstructive pulmonary disease, unspecified; E11.9 Type 2 diabetes mellitus without complications; E78.5 Hyperlipidemia, unspecified; I25.10 Atherosclerotic heart disease of native coronary artery without angina pectoris; Z95.1 Presence of aortocoronary bypass graft; I25.2 Old myocardial infarction; K21.9 Gastro-esophageal reflux disease without esophagitis; Z79.4 Long term (current) use of insulin; Z79.82 Long term (current) use of aspirin; Z79.899 Other long term (current) drug therapy; Z80.51 Family history of malignant neoplasm of kidney; Z82.49 Family history of ischemic heart disease and other diseases of the circulatory system; Z95.2 Presence of prosthetic heart valve; M54.5 Low back pain; G89.29 Other chronic pain; Z88.0 Allergy status to penicillin
CPT/HCPCS: 80048; 80053; 83036; 85025; 85652

== ENCOUNTER → 2016-10-07 | Outpatient (CLI) | payer MEDICARE ==
[2016-10-03 13:26] VITALS: BMI 37.2
[2016-10-07 13:30] VITALS: BP 123/58; PULSE 63; RESP 16; TEMP 97.2
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
== END | disposition home or self-care (01) ==
LOC: PNWHC3 12:29
PROVIDERS: ATTEND Anesthesiology
DX: M48.06 Spinal stenosis, lumbar region (principal); M47.816 Spondylosis without myelopathy or radiculopathy, lumbar region; I50.9 Heart failure, unspecified; E11.9 Type 2 diabetes mellitus without complications; E78.5 Hyperlipidemia, unspecified; I10 Essential (primary) hypertension; Z79.82 Long term (current) use of aspirin; Z79.4 Long term (current) use of insulin; Z79.899 Other long term (current) drug therapy; Z88.0 Allergy status to penicillin
CPT/HCPCS: 99211

== ENCOUNTER → 2016-10-29 | Day surgery (SDC) | payer MEDICARE ==
[2016-10-22 12:28] VITALS: BMI 35.0
[~2016-10-29] MED LIST: IV FLUID CONTINUATION 1,000 ML IV ONE; LACTATED RINGERS 1,000 ML IV SCH; LIDOCAINE 1% 20 ML VIAL (10MG/ML) FOR IV START INTRADERMA ONE
[2016-10-29 07:25] VITALS: RESP 18; TEMP 98.7
[2016-10-29 07:46] LABS: Glucose,Whole Blood 110 mg/dL (75-99)
--- NOTE | 2016-10-29 08:29 | P.PCN ---
Date of Procedure: 10/29/16 Preoperative Diagnosis: Lumbar spondylosis without myelopathy Postoperative Diagnosis: Name as above Procedure(s) Performed: Lumbar Bilateral medial branch block under fluoroscopic guidance Implants: Anesthesia: other (Moderate conscious sedation with IV Versed only) Surgeon: Staci Espino Pathology: none sent Condition: stable Disposition: PACU Indications for Procedure: Operative Findings: Description of Procedure: The patient was seen in the preop holding area consent was obtained then she was brought into the procedure room and placed in prone position. Skin was prepped with Chloraprep and draped in a sterile manner. Lidocaine 1% was used to numb the skin up at the target points that were chosen as follows: at the L5-S1 level which corresponds to the dorsal ramus of L5 the target points were at the superior medial aspect of the sacral ala on each side of the spine on the AP view of fluoroscopy, and for the L3 and L4 medial branches the target points were the connection between the transverse process and the superior to go process of L4 and L5 respectively on the oblique views of fluoroscopy. I used 22-gauge 3-1/2 inch Quincke spinal needles for this procedure and after contacting bone at the target points mentioned above I injected 1 mL of Marcaine 0.5%. Patient tolerated procedure well.
--- NOTE | 2016-10-29 08:47 | FL ---
EXAMINATION TYPE: FL guided pain mgmt statistic DATE OF EXAM: 10/29/2016 COMPARISON: NONE HISTORY: Lumbar back pain TECHNIQUE: Fluoroscopy. FINDINGS/IMPRESSION: Fluoroscopic guidance was provided during procedure performed by Dr. Espino. A total of 8 seconds of fluoroscopic time was utilized during the procedure and 2 spot images was acq uired.
[2016-10-29 08:53] VITALS: BP 117/58; PULSE 64
== END | disposition home or self-care (01) ==
LOC: ORPAIN 06:38
PROVIDERS: ATTEND Anesthesiology
DX: G89.29 Other chronic pain (principal); M47.816 Spondylosis without myelopathy or radiculopathy, lumbar region; J44.9 Chronic obstructive pulmonary disease, unspecified; I25.10 Atherosclerotic heart disease of native coronary artery without angina pectoris; I11.0 Hypertensive heart disease with heart failure; I50.9 Heart failure, unspecified; E11.9 Type 2 diabetes mellitus without complications; Z79.4 Long term (current) use of insulin; E78.5 Hyperlipidemia, unspecified; Z79.82 Long term (current) use of aspirin; Z79.899 Other long term (current) drug therapy; Z88.0 Allergy status to penicillin
CPT/HCPCS: 64493; 64494; 64495; 99152; J2250

== ENCOUNTER 2016-11-20 06:07 | Day surgery (SDC) | payer MEDICARE ==
[2016-11-18 14:48] VITALS: BMI 35.0
[~2016-11-20 06:07] MED LIST changes: -IV FLUID CONTINUATION 1,000 ML IV ONE; -LIDOCAINE 1% 20 ML VIAL (10MG/ML) FOR IV START INTRADERMA ONE
[2016-11-20 06:34] VITALS: TEMP 97.8
[2016-11-20] MEDS ORDERED: LIDOCAINE 1% 20 ML VIAL (10MG/ML) FOR IV START INTRADERMA ONE (06:58)
[2016-11-20 07:09] LABS: Glucose,Whole Blood 114 mg/dL (75-99)
[2016-11-20] MEDS ORDERED: IV FLUID CONTINUATION 1,000 ML IV ONE (07:27)
--- NOTE | 2016-11-20 07:35 | P.PCN ---
Date of Procedure: 11/20/16 Preoperative Diagnosis: Lumbar spondylosis without myelopathy Postoperative Diagnosis: Same as above Procedure(s) Performed: Lumbar bilateral medial branch block under fluoroscopic guidance for the medial branchesL2, L3, L4, and L5 which corresponds to levels L3-4, L4-5, and L5-S1 Anesthesia: MAC (Moderate IV sedation with Versed and fentanyl) Surgeon: Staci Espino Pathology: none sent Condition: stable Disposition: PACU Description of Procedure: he patient was seen in the preop holding area consent was obtained then she was brought into the procedure room and placed in prone position. Skin was prepped with Chloraprep and draped in a sterile manner. Lidocaine 1% was used to numb the skin up at the target points that were chosen as follows: at the L5-S1 level which corresponds to the dorsal ramus of L5 the target points were at the superior medial aspect of the sacral ala on each side of the spine on the AP view of fluoroscopy, and for theL2, L3 and L4 medial branches the target points were the connection between the transverse process and the superior to go process of L3,L4 and L5 respectively on the oblique views of fluoroscopy. I used 22-gauge 3-1/2 inch Quincke spinal needles for this procedure and after contacting bone at the target points mentioned above I injected 1 mL of a solution made up of 7 mls of Marcaine 0.5% and 40 mgs of Kenolog. Patient tolerated procedure well.
[2016-11-20 07:43] LABS: Glucose,Whole Blood 124 mg/dL (75-99)
[2016-11-20 07:49] VITALS: BP 129/71; PULSE 57; RESP 18
--- NOTE | 2016-11-20 08:16 | FL ---
EXAMINATION TYPE: FL guided pain mgmt statistic DATE OF EXAM: 11/20/2016 COMPARISON: NONE HISTORY: Lumbar back pain TECHNIQUE: Fluoroscopy. FINDINGS/IMPRESSION: Fluoroscopic guidance was provided during procedure performed by Dr. Espino. A total of 11 seconds of fluoroscopic time was utilized during the procedure and 2 spot images was ac quired.
== END 2016-11-20 08:09 | disposition home or self-care (01) ==
LOC: ORPAIN 06:07
PROVIDERS: ATTEND Anesthesiology
DX: M47.816 Spondylosis without myelopathy or radiculopathy, lumbar region (principal); Z88.0 Allergy status to penicillin; Z79.82 Long term (current) use of aspirin; I10 Essential (primary) hypertension; E11.9 Type 2 diabetes mellitus without complications
CPT/HCPCS: 64493; 64494; 64495; 99152; J2250; J3301

== ENCOUNTER 2016-11-26 13:28 | Emergency (ER) | payer MEDICARE ==
[2016-11-26 13:42] VITALS: RESP 18; TEMP 96.9
[2016-11-26] MEDS ORDERED: DEXTROSE 50%-WATER 50 ML SYRINGE IVP STA (13:43)
[2016-11-26 13:52] LABS: Glucose,Whole Blood 86 mg/dL (75-99)
[2016-11-26 14:07] LABS: Glucose,Whole Blood 152 mg/dL (75-99)
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
[2016-11-26] MEDS ORDERED: DEXTROSE 10% IN WATER 1,000 ML IV ONE (14:54)
[2016-11-26 15:06] LABS: Glucose,Whole Blood 80 mg/dL (75-99)
[2016-11-26 15:32] LABS: Glucose,Whole Blood 100 mg/dL (75-99)
[2016-11-26 16:07] LABS: Glucose,Whole Blood 93 mg/dL (75-99)
[2016-11-26 16:53] LABS: Glucose,Whole Blood 124 mg/dL (75-99)
[2016-11-26 17:22] VITALS: BP 158/80; PULSE 78
[2016-11-26 17:28] LABS: Glucose,Whole Blood 151 mg/dL (75-99)
== END 2016-11-26 17:43 | disposition home or self-care (01) ==
LOC: EC 13:28
DX: E11.649 Type 2 diabetes mellitus with hypoglycemia without coma (principal); I25.10 Atherosclerotic heart disease of native coronary artery without angina pectoris; I11.0 Hypertensive heart disease with heart failure; I50.9 Heart failure, unspecified; E78.5 Hyperlipidemia, unspecified; J45.909 Unspecified asthma, uncomplicated; Z95.5 Presence of coronary angioplasty implant and graft; Z95.1 Presence of aortocoronary bypass graft; Z79.4 Long term (current) use of insulin; Z79.82 Long term (current) use of aspirin; Z79.899 Other long term (current) drug therapy; Z88.0 Allergy status to penicillin
CPT/HCPCS: 36415; 96365; 96366; 96376; 99285

== ENCOUNTER 2016-12-16 06:53 | Day surgery (SDC) | payer MEDICARE ==
[2016-12-11 09:23] VITALS: BMI 35.0
[2016-12-16] MEDS ORDERED: LACTATED RINGERS 1,000 ML IV SCH (07:30)
[2016-12-16 07:41] VITALS: TEMP 97.6
[2016-12-16] MEDS ORDERED: LIDOCAINE 1% 20 ML VIAL (10MG/ML) FOR IV START INTRADERMA ONE (07:42)
[2016-12-16 07:44] LABS: Glucose,Whole Blood 131 mg/dL (75-99)
[2016-12-16 08:36] VITALS: RESP 20
--- NOTE | 2016-12-16 08:45 | P.PCN ---
Date of Procedure: 12/16/16 Surgeon: Nasim Rivas Pathology: none sent Condition: stable Disposition: PACU Description of Procedure: PREOPERATIVE DIAGNOSIS: Lumbar spondylosis without myelopathy and facet arthropathy POSTOPERATIVE DIAGNOSIS: Lumbar spondylosis without myelopathy and facet arthropathy PROCEDURES: Left Radiofrequency thermocoagulation, L3-L4, L4-L5, and L5-S1 medial branch (4 levels), with fluoroscopic guidance. ANESTHESIA: 1% lidocaine plain; Conscious sedation with versed/fentanyl EBL: Minimal PROCEDURE INDICATION: The patient with low back pain secondary to lumbar arthropathy who had more than 50% relief of pain with previous diagnostic lumbar medial branch block with bupivacaine. Patient presents for RFA today; no use of blood thinners. PROCEDURE DESCRIPTION / TECHNIQUE: The patient was seen and identified in the preoperative area. Risks, benefits, complications, and alternatives were discussed with the patient (including but not limited to incomplete pain relief , bleeding, infection, nerve damage, and allergies to medications), the patient agreed to proceed with the procedure and signed the consent after all questions were answered. Patient was taken to the OR and time out was completed to verify proper patient , position, laterality of pain, and allergies. Pt was placed in the prone position. IV was started. Vital signs remained stable throughout the procedure. A pillow was placed under the patients chest to decrease lordosis. The lumbosacral area was prepped and draped in the usual sterile fashion. Vital signs were closely monitored during the procedure. Conscious sedation was used during the procedure to decrease patients anxiety. Using AP and then oblique fluoroscopy, the eye of the Justen dog corresponding to the connection between the superior and transverse articular processes of left L3, L4, L5 and top of the sacrum were identified, marked, and localized with 1% lidocaine. Subsequently, a 18 gauge, 100-mm radiofrequency cannula with a 10-mm active tip was advanced guided by fluoroscopy to each of the eyes of the Justen dog at left L2, L3, L4, and L5 medial branches. Each site then underwent sensory testing at 50 Hz and 0 to 1 volt and motor testing at 2 Hz and 0 to 3 volt with local stimulation, but no radicular symptoms down the legs. Thereafter the left L2, L3, L4, and L5 medial branch sites underwent radiofrequency thermocoagulation at 80 degrees Celsius for 90 seconds after injecting 0.5 ml of PF lidocaine 1%. After thermocoagulation, 1 ml of the block solution containing Kenalog 40 mg and 3 mL of preservative-free normal saline was injected at the left L2, L3, L4, and L5 medial branch levels after negative aspiration of CSF and blood and with no paresthesias. Cannulas were retracted while injecting lidocaine 1% until the needles were removed. At the end of the procedure, the skin was cleansed and bandages were applied. COMPLICATIONS: No acute complications. DISPOSITION / PLANS: The patient was placed in a supine position and transferred to the recovery area in a stable condition for observation and was discharged from the recovery room after meeting discharge criteria. Home discharge instructions given to the patient by the staff. The patient was reexamined prior to discharge. The patient will schedule R lumbar RFA in 4-6 weeks.
[2016-12-16 08:59] VITALS: BP 149/67; PULSE 68
[2016-12-16] MEDS ORDERED: IV FLUID CONTINUATION 1,000 ML IV ONE (08:59)
--- NOTE | 2016-12-16 09:12 | FL ---
EXAMINATION TYPE: FL guided pain mgmt statistic DATE OF EXAM: 12/16/2016 COMPARISON: NONE HISTORY: Back pain TECHNIQUE: Fluoroscopy. FINDINGS/IMPRESSION: Fluoroscopic guidance was provided during procedure performed by Dr. Rivas. A total of 11 seconds of fluoroscopic time was utilized during the procedure and 0 spot images were acq uired.
== END 2016-12-16 09:04 | disposition home or self-care (01) ==
LOC: ORPAIN 06:53
PROVIDERS: ATTEND Anesthesiology
DX: M47.816 Spondylosis without myelopathy or radiculopathy, lumbar region (principal); M46.96 Unspecified inflammatory spondylopathy, lumbar region; I10 Essential (primary) hypertension; E11.9 Type 2 diabetes mellitus without complications; Z79.82 Long term (current) use of aspirin; Z88.0 Allergy status to penicillin
CPT/HCPCS: 64635; 64636 ×3; 99152; J2250; J3301; J3010

== ENCOUNTER 2017-01-14 07:23 | Day surgery (SDC) | payer MEDICARE ==
[2017-01-12 11:42] VITALS: BMI 35.0
[2017-01-14 07:55] VITALS: RESP 16; TEMP 97
[2017-01-14] MEDS ORDERED: LIDOCAINE 1% 20 ML VIAL (10MG/ML) FOR IV START INTRADERMA ONE (07:56)
[2017-01-14 08:08] LABS: Glucose,Whole Blood 116 mg/dL (75-99)
--- NOTE | 2017-01-14 08:50 | P.PCN ---
Date of Procedure: 01/14/17 Procedure(s) Performed: PREOPERATIVE DIAGNOSIS: 1-Lumbar Spondylosis with Facet Arthropathy without myelopathy. POSTOPERATIVE DIAGNOSIS: 1- Lumbar Spondylosis with Facet Arthropathy without myelopathy. PROCEDURES = Right Radiofrequency thermocoagulation, L3-L4, L4-L5, and L5-S1 medial branch, with fluoroscopic guidance ANESTHESIA: IV sedation with versed 3 mg and fentaneyl 100 mcg and local infiltration with lidocaine 1% 3 ml EBL: Minimal PROCEDURE INDICATION: The patient with low back pain secondary to lumbar facet arthropathy who had more than 50% relief of her pain with previous diagnostic lumbar medial branch block with bupivacaine. PROCEDURE DESCRIPTION / TECHNIQUE: The patient was seen and identified in the preoperative area. Risks, benefits, complications, including but not limited to risk of infection ,bleeding , allergic reactions to the medications and no complete pain releife , and alternatives were discussed with the patient, the patient agreed to proceed with the procedure and signed the consent. IV was started. Vital signs remained stable throughout the procedure. Patient was taken to the OR and time out was completed. The patient was placed in the prone position on the procedure table. The lumber area was prepped and draped in the usual sterile fashion. . Vital signs were closely monitored during the procedure .IV sedation was used during the procedure to decrease patients anxiety. Using AP and then oblique fluoroscopy, the ``eye of the Justen dog corresponding to the connection between the superior and transverse articular processes of right L3, L4, and L5 were identified, marked, and localized with 1 % lidocaine. Subsequently, a [id number] radiofrequency cannula with a 10- mm active tip was advanced guided by fluoroscopy to each of the ``eyes of the Justen dog at right L3, L4, and L5. Each site then underwent sensory testing at 50 Hz and 0 to 1 volt and motor testing at 2.5 Hz and 0 to 3 volt with local stimulation, but no radicular symptoms down the legs. Thereafter the right L3-4, L4-5, and L5-S1 sites underwent radiofrequency thermocoagulation at 80 degrees celsius for 90 seconds after injecting 0.5 ml of PF lidocaine 1%. then After the thermocoagulation done , 1 ml of the block solution containing Kenalog 40 mg and 3 ml of marain 0.5% was injected at the right L3- 4 , L4-5 , and L5-S1, levels after negative aspiration of CSF and blood and with no paresthesias. Cannulas were retracted while injecting lidocaine 1% until the needle is out. At the end of the procedure, the skin was cleansed and bandages were applied. COMPLICATIONS: No acute complications. DISPOSITION / PLANS: The patient was placed in a supine position and transferred to the recovery area in a stable condition for observation and was discharged from the recovery room after meeting discharge criteria. Home discharge instructions given to the patient by the staff. The patient was reexamined prior to discharge. The patient will schedule a follow up in the clinic in 2-4 weeks.
[2017-01-14] MEDS ORDERED: IV FLUID CONTINUATION 1,000 ML IV ONE ×2 (09:00)
[2017-01-14 09:14] VITALS: BP 135/63; PULSE 63
--- NOTE | 2017-01-14 10:03 | FL ---
Fluoroscopy HISTORY: Pain 8 seconds fluoroscopy time supplied to the referring clinician. 3 intraoperative C-arm images docume nt the procedure. See dictated report from anesthesia.
== END 2017-01-14 09:40 | disposition home or self-care (01) ==
LOC: ORPAIN 07:23
PROVIDERS: ATTEND Specialist
DX: M47.816 Spondylosis without myelopathy or radiculopathy, lumbar region (principal); M46.96 Unspecified inflammatory spondylopathy, lumbar region; I10 Essential (primary) hypertension; I25.10 Atherosclerotic heart disease of native coronary artery without angina pectoris; J45.909 Unspecified asthma, uncomplicated; K21.9 Gastro-esophageal reflux disease without esophagitis; E11.9 Type 2 diabetes mellitus without complications; Z88.0 Allergy status to penicillin
CPT/HCPCS: 64635; 64636 ×2; J2250; J3301; J3010; 99152

== ENCOUNTER → 2017-04-08 | Outpatient (CLI) | payer MEDICARE ==
[~2017-04-08] MED LIST changes: +AMINOPHYLLINE 500 MG/20 ML VIAL IV ONE; -LACTATED RINGERS 1,000 ML IV SCH; +REGADENOSON 0.4 MG/5 ML SYRINGE IV ONE
--- NOTE | 2017-04-08 11:10 | NM ---
EXAMINATION TYPE: NM stress lexiscan cardiolite DATE OF EXAM: 04/08/2017 COMPARISON: NONE HISTORY: Chest pain TECHNIQUE: After the intravenous administration of 9.5 mCi Tc 99m Sestamibi - Cardiolite resting SPE CT images acquired 55 minutes post injection. The patient received 0.4mg Lexiscan, 25.9 mCi Tc 99m Sestamibi - Stress images obtained [address] injection FINDINGS: Review of stress and rest SPECT images demonstrates predominantly fixed defect with reduced wall brittney on activity involving the inferior wall the myocardium extending laterally. Small area of reversibili ty involving the inferior lateral myocardium not excluded.. Gated analysis shows normal wall motion with an estimated left ventricular ejection fraction of 63 %. IMPRESSION: 1. Suspect a small area of stress-induced reversibility involving the inferior lateral myocardium wit h a larger more fixed defect involving the inferior wall. Correlate clinically. A Yellow message has been communicated to Eric Aguirre MD via the [facility] system on 04/08/2017 11:08 AM, Message ID [id number].
--- NOTE | 2017-04-08 14:34 | EST ---
EXERCISE STRESS AGE: 71 SEX: M HT: 5'3" WT: 212 PROTOCOL: Lexiscan Cardiolite Stress Test HEART RATE REST: 61 BLOOD PRESSURE REST: 142/46 MAXIMUM HEART RATE ACHIEVED: 75 MAXIMUM BLOOD PRESSURE: 142/46 85% MPHR: 125 100% MPHR: 147 INDICATIONS: Abnormal EKG CLINICAL INFORMATION: Baseline rhythm is sinus mechanism, rate of 61, normal axis, intervals, nonspecific ST- T wave changes in the inferior leads. Baseline blood pressure 142/46 mmHg. Patient received an injection of Lexiscan. Electrocardiograph monitoring revealed no evidence of diagnostic ischemic ST deviation. Cardiolite was injected per protocol. CONCLUSION: 1. Nondiagnostic electrocardiogram stress testing. 2. Nuclear images will be reported separately. MMODL / IJN: [id number] /
== END | disposition home or self-care (01) ==
LOC: RADNMMAIN 08:04
PROVIDERS: ATTEND Family Medicine
DX: R94.31 Abnormal electrocardiogram [ECG] [EKG] (principal)
CPT/HCPCS: 93017; 78452; A9500; J2785

== ENCOUNTER → 2017-04-15 | Outpatient (CLI) | payer MEDICARE ==
[2017-04-15 12:50] LABS: HCT 32.9 % (34.0-46.0); HGB 10.3 gm/dL (11.4-16.0); Hypochromasia Moderate; MCH 30.3 pg (25.0-35.0); MCHC 31.2 g/dL (31.0-37.0); MCV 97.1 fL (80.0-100.0); Mean Platelet Volume 7.5; Platelet Count 306 k/uL (150-450); RDW 13.8 % (11.5-15.5); WBC 12.8 k/uL (3.8-10.6)
[2017-04-15 13:14] LABS: Calcium 9.8 mg/dL (8.4-10.2); Potassium 5.9 mmol/L (3.5-5.1)
== END | disposition home or self-care (01) ==
LOC: LABPAT 12:33
PROVIDERS: ATTEND Internal Medicine Interventional Cardiology
DX: Z01.812 Encounter for preprocedural laboratory examination (principal); I25.718 Atherosclerosis of autologous vein coronary artery bypass graft(s) with other forms of angina pectoris
CPT/HCPCS: 36415; 80048; 85027

== ENCOUNTER → 2017-04-24 | Outpatient (CLI) | payer MEDICARE ==
[2017-04-24 16:12] LABS: HCT 32.5 % (34.0-46.0); HGB 9.9 gm/dL (11.4-16.0); Hypochromasia Slight; MCH 29.1 pg (25.0-35.0); MCHC 30.6 g/dL (31.0-37.0); MCV 95.3 fL (80.0-100.0); Mean Platelet Volume 7.1; Platelet Count 390 k/uL (150-450); RBC 3.41 m/uL (3.80-5.40); RDW 13.7 % (11.5-15.5)
== END | disposition home or self-care (01) ==
LOC: LABPAT 15:56
PROVIDERS: ATTEND Internal Medicine Interventional Cardiology
DX: Z01.812 Encounter for preprocedural laboratory examination (principal); I25.810 Atherosclerosis of coronary artery bypass graft(s) without angina pectoris
CPT/HCPCS: 36415; 80051; 82565; 84520; 85027

== ENCOUNTER 2017-05-04 07:29 | Day surgery (SDC) | payer MEDICARE ==
[2017-04-30 14:00] VITALS: BMI 37.2
[~2017-05-04 07:29] MED LIST changes: +ALPRAZolam 0.25 MG TAB PO PRN; +ALPRAZolam 0.5 MG TAB PO PRN; -AMINOPHYLLINE 500 MG/20 ML VIAL IV ONE; +ASPIRIN 325 MG TAB PO STA; +ATORVASTATIN 80 MG TAB PO STA; +NITROGLYCERIN SL TABS 0.4 MG TAB SUBLINGUAL PRN; -REGADENOSON 0.4 MG/5 ML SYRINGE IV ONE; +SODIUM CHLORIDE 0.9% 1,000 ML in EMPTY BAG 1 BAG IV ONE
[2017-05-04 08:38] LABS: Glucose,Whole Blood 136 mg/dL (75-99)
[2017-05-04 08:39] VITALS: PULSE 61; TEMP 98
[2017-05-04] MEDS ORDERED: IV FLUID CONTINUATION 500 ML IV ONE (10:44)
[2017-05-04] MEDS ORDERED: diphenhydrAMINE 50 MG/ML 1 ML VIAL IVP ONE (11:56)
[2017-05-04] MEDS ORDERED: MIDAZOLAM 2 MG/2 ML VIAL IV ONE (11:56)
[2017-05-04] MEDS ORDERED: LIDOCAINE 2% INJ 20 MG/ML SQ ONE (12:04)
[2017-05-04] MEDS ORDERED: NITROGLYCERIN SL TABS 0.4 MG TAB SUBLINGUAL ONE (12:07)
[2017-05-04] MEDS ORDERED: IODIXANOL 320 MG/ML 100 ML INTRAARTER ONE (12:36)
[2017-05-04] MEDS ORDERED: SODIUM CHLORIDE 0.9% 1,000 ML IV SCH (13:00)
[2017-05-04] MEDS ORDERED: HYDROcodone/APAP 7.5-325MG 1 EACH TAB ONE (13:05)
--- NOTE | 2017-05-04 13:44 | LTR ---
May 04, 2017 Re: Lucy Cameron Dear Dr. Aguirre: Thank you for the opportunity to participate in the care of Mrs Barnes. This lady has occluded vein grafts. The Vein grafts to RCA and diagonal/ramus graft are both occluded, but the [place] Diagonal/Ramus is patent with decent flow. RCA intervention will be performed at a later date, but for now we will defer intervention. I will see her in the office and make further recommendations. We used the least amount of contrast today and I will check renal function within a week. Please find enclosed my report for your records. Thank you for your referral and please call for questions. With kindest regards. Sincerely yours, MD SILVIA [place] / JAUNN: [id number] / KENDRA
--- NOTE | 2017-05-04 13:44 | CC ---
CARDIAC CATHETERIZATION REPORT DATE OF SERVICE: 05/04/2017. PROCEDURE: Coronary angiography and selective injection of bypass grafts. PERFORMED BY: Dr. Kacey Noland. CLINICAL INFORMATION: Mrs. Lucy Barnes is a 71-year-old lady with a history of type 2 diabetes insulin- requiring with CKD, hypertension, hypercholesterolemia, status post aortic valve replacement with a tissue valve, left atrial clip intraoperatively and HOWARD to LAD with 2 vein grafts, one to the ramus/diagonal and the other 1 to the distal RCA. Surgery was performed on 07/13/2015. Because of symptoms of angina and a positive stress test, patient was initially advised medical therapy, but she continued to have symptoms and therefore I brought in for the procedure electively after hydrating her orally and also intravenously. She has chronic CKD with diabetes. Moderate conscious sedation time was 40 minutes. The patient was given Versed and Benadryl and oxygen saturation was monitored closely. PROCEDURE NOTE: Under local anesthesia and strict aseptic precautions using a micropuncture technique, I placed a 6-[place] introducer in the right femoral artery. Using a standard left Andrei catheter I performed selective coronary angiography of the left system. Using a Sahil catheter I did selective angiography of the HOWARD graft. Using an AR1 catheter, I performed selective coronary angiography of the [place] RCA and the 2 vein grafts. Two stumps were seen. LV gram was not performed and LV pressures were not checked. The sheath was taken out and Angio-Seal device used to secure hemostasis. Patient tolerated the procedure well without complications. She received about 70 mL of contrast totally. CORONARY ANGIOGRAPHY FINDINGS: LEFT MAIN CORONARY ARTERY: This is a patent long vessel free of significant disease that bifurcates into LAD and circumflex. LEFT ANTERIOR DESCENDING CORONARY ARTERY: This vessel is totally occluded in the midportion and competitive flow is seen. Small diagonal branches are free of significant disease, but there is diffuse disease in the opacified diagonal and septal branches. There is one major diagonal, which almost looks like a ramus that was grafted. This vessel is also patent with diffuse disease but no critical stenosis is noted. LEFT POSTERIOR CIRCUMFLEX CORONARY ARTERY: Technically nondominant vessel. Good caliber, good distribution, gives off a PDA, which is free of significant disease. Has diffuse disease throughout in the range of 30% to 50% throughout the vessels. RIGHT CORONARY ARTERY: This is a technically dominant vessel that was grafted. In the proximal 1/3, there is diffuse disease. At the junction of proximal and middle one- third, there is 70% stenosis. The middle one-third is patent. At the junction of the middle and distal one-third, there is an eccentric 70% stenosis after which the caliber improves and the vessel bifurcates into PDA and PLV, both of which supply a fair amount of myocardium, but there is diffuse disease throughout. The RCA is a dominant vessel with 70% proximal lesion and a 70% to 75% mid/distal lesion and diffuse disease in rest of the opacified areas including the PDA and PLV branches. This vessel was grafted. LEFT INTERNAL MAMMARY ARTERY GRAFT TO LAD: This graft is widely patent at its origin, course and insertion site and opacified LAD has mild diffuse disease and runs all the way to the apex. SAPHENOUS VEIN GRAFT TO THE RCA: This graft is totally occluded and seen as a stump best opacified in the HINDS projection in frame #28. SAPHENOUS VEIN GRAFT TO THE RAMUS INTERMEDIUS: This graft is totally occluded and is seen as a stump best in the in the HINDS projection. FINAL IMPRESSION: This patient has two of the vein grafts occluded. One was to the ramus, but the ramus/diagonal is patent without intrinsic significant disease. The other graft was to the distal RCA and the right has significant disease throughout the vessel, more so in 2 focal areas of about 70% to 80%. Both the branches of RCA are also diffusely diseased. The graft to the RCA is occluded. The HOWARD to LAD is widely patent. The [place] RCA is a dominant vessel with diffuse disease and 2 focal areas of significant stenosis. The LAD is totally occluded in the midportion and the opacified diagonal and septal branches have diffuse disease. Circumflex has diffuse 40% to 50% stenosis without any focal lesions of significance. The LV pressures were not obtained. RECOMMENDATION: This patient has renal failure. Only 70 mL of dye was used. She was hydrated and she will be hydrated postprocedure as well. I am recommending that we pursue medical therapy for now and we will consider intervention of the RCA at a later date. We will have to perform this very carefully given her potential worsening of renal failure with diabetes with CKD. The patient will be sent home later on today, adequately hydrated IV as well as orally and I will see her in the office and we will pursue medical therapy for now with the eventual intention of doing intervention of the complex RCA which is diffusely diseased. Results were discussed with the patient and family. I also discussed the results with Dr. Andrade who performed surgery 2 years ago. MMJESSICA / JAUNN: [id number] / KENDRA
[2017-05-04 17:04] LABS: Glucose,Whole Blood 195 mg/dL (75-99)
[2017-05-04 17:13] VITALS: BP 119/58; RESP 18
== END 2017-05-04 18:05 | disposition home or self-care (01) ==
LOC: CATHCVL 07:29
PROVIDERS: ATTEND Internal Medicine Interventional Cardiology
DX: I25.110 Atherosclerotic heart disease of native coronary artery with unstable angina pectoris (principal); I25.700 Atherosclerosis of coronary artery bypass graft(s), unspecified, with unstable angina pectoris; I25.82 Chronic total occlusion of coronary artery; R94.39 Abnormal result of other cardiovascular function study; E78.5 Hyperlipidemia, unspecified; E78.00 Pure hypercholesterolemia, unspecified; I12.9 Hypertensive chronic kidney disease with stage 1 through stage 4 chronic kidney disease, or unspecified chronic kidney disease; E11.22 Type 2 diabetes mellitus with diabetic chronic kidney disease; N18.9 Chronic kidney disease, unspecified; Z95.4 Presence of other heart-valve replacement; Z95.1 Presence of aortocoronary bypass graft; Z82.49 Family history of ischemic heart disease and other diseases of the circulatory system; Z79.84 Long term (current) use of oral hypoglycemic drugs; Z79.4 Long term (current) use of insulin; Z79.82 Long term (current) use of aspirin; Z79.890 Hormone replacement therapy; Z79.51 Long term (current) use of inhaled steroids; Z79.899 Other long term (current) drug therapy; Z88.0 Allergy status to penicillin; Z87.891 Personal history of nicotine dependence
CPT/HCPCS: 93455; C1760; C1894; C1769 ×2; J2001; J2250; J1200; Q9967

== ENCOUNTER 2017-05-05 11:56 | Emergency (ER) | payer MEDICARE ==
[2017-05-05 12:11] VITALS: BP 120/80; PULSE 58; RESP 20; TEMP 98.3
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
== END 2017-05-05 12:51 | disposition home or self-care (01) ==
LOC: EC 11:56
DX: Z48.89 Encounter for other specified surgical aftercare (principal); I25.10 Atherosclerotic heart disease of native coronary artery without angina pectoris; I11.0 Hypertensive heart disease with heart failure; I50.9 Heart failure, unspecified; J44.9 Chronic obstructive pulmonary disease, unspecified; E11.9 Type 2 diabetes mellitus without complications; E78.5 Hyperlipidemia, unspecified; Z95.1 Presence of aortocoronary bypass graft; Z95.5 Presence of coronary angioplasty implant and graft; Z95.2 Presence of prosthetic heart valve; Z79.4 Long term (current) use of insulin; Z79.82 Long term (current) use of aspirin; Z79.899 Other long term (current) drug therapy; Z88.0 Allergy status to penicillin
CPT/HCPCS: 99283

== ENCOUNTER → 2017-05-07 | Outpatient (CLI) | payer MEDICARE ==
[2017-05-07 12:23] LABS: HCT 32.2 % (34.0-46.0); HGB 10.2 gm/dL (11.4-16.0); Hypochromasia Slight; MCH 29.5 pg (25.0-35.0); MCHC 31.5 g/dL (31.0-37.0); MCV 93.5 fL (80.0-100.0); Mean Platelet Volume 7.9; Platelet Count 303 k/uL (150-450); RBC 3.45 m/uL (3.80-5.40); RDW 13.8 % (11.5-15.5)
[2017-05-07 12:28] LABS: Calcium 9.4 mg/dL (8.4-10.2); Potassium 5.7 mmol/L (3.5-5.1)
== END | disposition home or self-care (01) ==
LOC: LABWHC1 11:17
PROVIDERS: ATTEND Internal Medicine Interventional Cardiology
DX: E11.9 Type 2 diabetes mellitus without complications (principal); N18.9 Chronic kidney disease, unspecified; I25.10 Atherosclerotic heart disease of native coronary artery without angina pectoris
CPT/HCPCS: 36415; 80048; 85027

== ENCOUNTER → 2017-05-15 | Outpatient (CLI) | payer MEDICARE ==
[2017-05-15 13:57] LABS: Calcium 9.1 mg/dL (8.4-10.2); Potassium 4.3 mmol/L (3.5-5.1)
== END | disposition home or self-care (01) ==
LOC: LABWHC1 12:45
PROVIDERS: ATTEND Internal Medicine Interventional Cardiology
DX: E11.9 Type 2 diabetes mellitus without complications (principal)
CPT/HCPCS: 36415; 80048

== ENCOUNTER → 2017-06-04 | Outpatient (CLI) | payer MEDICARE ==
[2017-06-04 11:11] LABS: HGB 9.9 gm/dL (11.4-16.0); MCH 29.9 pg (25.0-35.0); MCV 90.8 fL (80.0-100.0); Mean Platelet Volume 7.4; Platelet Count 271 k/uL (150-450); RBC 3.31 m/uL (3.80-5.40); RDW 13.9 % (11.5-15.5); WBC 8.5 k/uL (3.8-10.6)
[2017-06-04 11:27] LABS: Calcium 9.1 mg/dL (8.4-10.2); Potassium 5.3 mmol/L (3.5-5.1)
== END | disposition home or self-care (01) ==
LOC: LABWHC1 10:29
PROVIDERS: ATTEND Internal Medicine Interventional Cardiology
DX: I25.10 Atherosclerotic heart disease of native coronary artery without angina pectoris (principal); E11.22 Type 2 diabetes mellitus with diabetic chronic kidney disease; N18.9 Chronic kidney disease, unspecified
CPT/HCPCS: 36415; 80048; 85027

== ENCOUNTER → 2017-07-21 | Outpatient (CLI) | payer MEDICARE ==
[2017-07-21 09:57] LABS: HCT 32.3 % (34.0-46.0); HGB 10.2 gm/dL (11.4-16.0); Hypochromasia Slight; MCH 28.1 pg (25.0-35.0); MCHC 31.6 g/dL (31.0-37.0); MCV 88.8 fL (80.0-100.0); Mean Platelet Volume 7.1; Platelet Count 321 k/uL (150-450); RBC 3.64 m/uL (3.80-5.40); RDW 13.8 % (11.5-15.5); WBC 9.3 k/uL (3.8-10.6)
[2017-07-21 10:31] LABS: Calcium 9.5 mg/dL (8.4-10.2); Potassium 4.6 mmol/L (3.5-5.1)
== END | disposition home or self-care (01) ==
LOC: LABWHC1 09:34
PROVIDERS: ATTEND Internal Medicine Interventional Cardiology
DX: I10 Essential (primary) hypertension (principal); E11.9 Type 2 diabetes mellitus without complications; I25.10 Atherosclerotic heart disease of native coronary artery without angina pectoris
CPT/HCPCS: 36415; 80048; 85027

== ENCOUNTER 2017-08-04 07:51 | Day surgery (SDC) | payer MEDICARE ==
[2017-08-04] MEDS: SODIUM CHLORIDE 0.9% 1,000 ML IV SCH ×4 (08:30→21:43)
[2017-08-04 08:50] LABS: Glucose,Whole Blood 147 mg/dL (75-99)
[2017-08-04] MEDS ORDERED: diphenhydrAMINE 50 MG/ML 1 ML VIAL ONE (08:54)
[2017-08-04] MEDS ORDERED: MIDAZOLAM 2 MG/2 ML VIAL ONE (08:54)
[2017-08-04] MEDS ORDERED: MIDAZOLAM 2 MG/2 ML VIAL IV ONE (09:15)
[2017-08-04] MEDS ORDERED: diphenhydrAMINE 50 MG/ML 1 ML VIAL IVP ONE (09:15)
[2017-08-04] MEDS ORDERED: NITROGLYCERIN SL TABS 0.4 MG TAB SUBLINGUAL ONE ×2 (09:23→09:28)
[2017-08-04] MEDS ORDERED: amLODIPine 5 MG TAB ONE (09:24)
[2017-08-04] MEDS ORDERED: LIDOCAINE 2% INJ 20 MG/ML SQ ONE (09:26)
[2017-08-04] MEDS ORDERED: amLODIPine 5 MG TAB PO ONE (09:28)
[2017-08-04] MEDS ORDERED: fentaNYL (PF) 50 MCG/ML 2 ML AMP IV ONE (09:30)
[2017-08-04] MEDS ORDERED: fentaNYL (PF) 50 MCG/ML 2 ML AMP ONE (09:31)
[2017-08-04] MEDS: NITROGLYCERIN 1000MCG/10ML SYRINGE INTRACORON ONE ×2 (09:32→10:12)
[2017-08-04] MEDS ORDERED: BIVALIRUDIN BOLUS 250 MG/50 ML IV ONE (09:32)
[2017-08-04] MEDS ORDERED: BIVALIRUDIN 250 MG in SODIUM CHLORIDE 0.9% 50 ML IV ONE (09:33)
[2017-08-04] MEDS ORDERED: IOPAMIDOL-370 100ML BTL INJ ONE ×2 (09:51→10:16)
[2017-08-04] MEDS ORDERED: MORPHINE SULFATE 4 MG/ML SYRINGE ONE (10:14)
[2017-08-04] MEDS ORDERED: MORPHINE SULFATE 4 MG/ML SYRINGE IV ONE (10:16)
[2017-08-04] MEDS ORDERED: CLOPIDOGREL 75 MG TAB ONE (10:22)
[2017-08-04] MEDS ORDERED: CLOPIDOGREL 75 MG TAB PO ONE (10:26)
[2017-08-04] MEDS ORDERED: RX INFO: IV CONTRAST WAS GIVEN 1 EACH MISC MISCELLANE PRN (10:28)
[2017-08-04] MEDS ORDERED: MAG HYDROX/AL HYDROX/SIMETH 30 ML CUP PO PRN (10:28)
[2017-08-04] MEDS ORDERED: ZOLPIDEM 5 MG TAB PO PRN (10:28)
[2017-08-04] MEDS ORDERED: NITROGLYCERIN SL TABS 0.4 MG TAB SUBLINGUAL PRN (10:28)
[2017-08-04] MEDS ORDERED: ATROPINE SULFATE 0.1 MG/ML 10ML SYRINGE IV PRN (10:28)
[2017-08-04] MEDS ORDERED: HYDROcodone/APAP 7.5-325MG 1 EACH TAB PO PRN (11:17)
[2017-08-04 11:39] LABS: Glucose,Whole Blood 155 mg/dL (75-99)
[2017-08-04] MEDS ORDERED: HYDROcodone/APAP 7.5-325MG 1 EACH TAB PO ONE (11:44)
--- NOTE | 2017-08-04 12:15 | PTCA ---
PERCUTANEOUSTRANS CORORONARY ANGIOGRAPHY DATE OF SERVICE: 08/04/2017 PROCEDURE: PTCA and stenting of proximal and mid RCA complex calcified lesions with 3 drug-eluting stents. PERFORMED BY: Dr. Moira Noland. Moderate conscious sedation time was 55 minutes. The patient's oxygen saturation, hemodynamics and EKG were monitored closely. CLINICAL INFORMATION: Mrs. Lucy Barnes is a 71-year-old lady with a history of type 2 diabetes, hypertension, hyperlipidemia, chronic CKD, who underwent aortocoronary bypass surgery with 2 vein grafts and the HOWARD and also had a aortic valve replacement that was performed about 2 years ago. On July 13, 2015, she underwent aortic valve replacement with tissue valve and 3 vessel bypass. She has been having symptoms of angina and a cardiac cath in April of this year revealed that both vein grafts were occluded but the ramus did not have significant disease and the other graft was to the RCA, which was also totally occluded. She was brought in for the procedure electively after adequate oral hydration. Risks, benefits, options and rationale were explained to the patient and son. PROCEDURE NOTE: Under local anesthesia and strict aseptic precautions, a 6-[place] introducer was placed in the right femoral artery. I used a [facility] guide catheter to cannulate the right coronary artery. A Whisper wire with a J-tip was used to cross the lesion. I performed predilatation of the proximal and mid lesions using a 2.25 caliber 12 mm long [place] Trek balloon. I tried to advance a 2.25 caliber 12 mm stent but I had considerable difficulty. I therefore switched over to a 2.5 caliber 12 mm [place] Trek balloon. With this, I pre-dilated the proximal lesion. There was a small intrinsic dissection. I then advanced a 2.25 caliber Xience stent and deployed this at the proximal RCA lesion just after the initial occlusion. There was a very tight area that I could not expand with the [place] Trek balloon. I tried multiple times without success. This was located right at the takeoff of an acute marginal branch. I then used a 2.5 caliber 8 mm long Xience stent and deployed this proximal to the previously placed 12 mm long 2.25 caliber stent and this was telescoped proximally and this was in the lesion which was unable to be expanded with an [place] Trek balloon before. Once I had the 2.[address], I then used a 3.0 caliber [place] Euphora balloon and at 18 atmospheres I was able to expand the stent completely. Excellent angiographic result was achieved in the proximal segment with brisk flow. The distal segment was then addressed with a 2.25 caliber 8 mm long Xience stent. This was deployed at 12 atmospheres. Patient had mild chest discomfort but no EKG changes. Excellent angiographic result without complication was achieved. The sheath was taken out and I used a Perclose device, but because of some continued oozing, I applied a FemoStop as well. Final angiograms revealed that the RCA in HINDS projection was widely patent with a brisk flow. There was some distal diffuse disease noted. There was also some ostial disease, but overall the flow was brisk. The three areas where the stents were deployed revealed remarkably good angiographic appearance and flow without complication. Results were discussed with the patient and family and she will be discharged home tomorrow hopefully if she remains stable. Risk factor modification issues were discussed. SILVIA / JAUNN: [id number] /
--- NOTE | 2017-08-04 12:15 | LTR ---
August 04, 2017 Re: Lucy Barnes Dear Dr. Aguirre: Thank you for the opportunity to participate in the care of Mrs. Lucy Barnes. This lady underwent stenting of RCA which was a technically difficult lesion and 3 stents were deployed. She has heavy calcification requiring high pressures with noncompliant balloons. End result was excellent and I expect that she will be discharged tomorrow if she remains stable. I will be carefully watching the groin closely in view of her oozing after the FemoStop. Thank you for your referral and please call for questions. With kindest regards. Sincerely yours, Kacey Noland MD MMDEIDREL / IJN: [id number] /
[2017-08-04] MEDS: INSULIN ASPART 100 UNIT/ML 1 ML 10 ML VIAL SQ SCH ×2 (14:36→17:12)
[2017-08-04] MEDS ORDERED: INSULIN LISPRO 30 UNIT SQ SCH (16:00)
[2017-08-04 16:30] LABS: Glucose,Whole Blood 141 mg/dL (75-99)
[2017-08-04] MEDS: ATENOLOL 50 MG TAB PO SCH (20:34)
[2017-08-04 20:57] LABS: Glucose,Whole Blood 234 mg/dL (75-99)
[2017-08-04] MEDS ORDERED: INSULIN DETEMIR 100 UNIT/ML 10 ML VIAL SQ SCH (21:00)
[2017-08-04] MEDS ORDERED: MIRTAZAPINE 15 MG TAB PO SCH (21:00)
[2017-08-04] MEDS ORDERED: MONTELUKAST 10 MG TAB PO SCH (21:00)
[2017-08-04] MEDS ORDERED: ATORVASTATIN 40 MG TAB PO SCH (21:00)
[2017-08-05 04:44] VITALS: RESP 18
[2017-08-05 06:22] LABS: Glucose,Whole Blood 143 mg/dL (75-99)
[2017-08-05] MEDS: INSULIN ASPART 100 UNIT/ML 1 ML 10 ML VIAL SQ SCH ×2 (06:22→12:51)
[2017-08-05] MEDS ORDERED: LEVOTHYROXINE 50 MCG TAB PO SCH (06:30)
[2017-08-05 06:56] LABS: Basophils # (A) 0.1 k/uL (0-0.2); Basophils % (A) 1 %; Eosinophils # (A) 0.4 k/uL (0-0.7); Eosinophils % (A) 4 %; HCT 28.2 % (34.0-46.0); Hypochromasia Moderate; Lymphocytes # (A) 1.2 k/uL (1.0-4.8); Lymphocytes % (A) 14 %; MCH 27.9 pg (25.0-35.0); MCHC 31.9 g/dL (31.0-37.0); MCV 87.4 fL (80.0-100.0); Mean Platelet Volume 7.1; Monocytes # (A) 0.4 k/uL (0-1.0); Monocytes % (A) 5 %; Neutrophils # (A) 6.9 k/uL (1.3-7.7); Neutrophils % (A) 76 %; Platelet Count 291 k/uL (150-450); RBC 3.22 m/uL (3.80-5.40); RDW 14.3 % (11.5-15.5)
[2017-08-05 07:18] LABS: Calcium 8.9 mg/dL (8.4-10.2); Potassium 5.3 mmol/L (3.5-5.1)
[2017-08-05] MEDS: ALBUTEROL NEBULIZED 2.5 MG/3 ML INHALATION PRN ×2 (07:54→11:14)
[2017-08-05] MEDS ORDERED: LISINOPRIL 5 MG TAB PO SCH (09:00)
[2017-08-05] MEDS ORDERED: ASPIRIN 81 MG PO SCH ×2 (09:00)
[2017-08-05] MEDS ORDERED: lamoTRIgine 25 MG TAB PO SCH (09:00)
[2017-08-05 10:06] VITALS: BMI 36.6
[2017-08-05] MEDS ORDERED: CLOPIDOGREL 75 MG TAB PO SCH (10:30)
[2017-08-05] MEDS: ATENOLOL 50 MG TAB PO SCH (10:33)
[2017-08-05] MEDS: SODIUM CHLORIDE 0.9% 1,000 ML IV SCH (10:34)
[2017-08-05 11:28] VITALS: TEMP 97.3
[2017-08-05 11:40] LABS: Glucose,Whole Blood 219 mg/dL (75-99)
[2017-08-05 13:18] VITALS: BP 120/56; PULSE 58
--- NOTE | 2017-08-05 18:22 | DS ---
DISCHARGE SUMMARY Mrs. Barnes underwent stenting of complex calcified lesions in the RCA. She is doing well this morning. Right groin is clean and dry. Pulse is good. Vital signs are stable. EKG is good. Labs are good. Creatinine has not gone up much. Plan is to continue current medications, increase activity. If she has no further symptoms, she will be discharged. Discharge instructions regarding activity, diet and medications were given. Blood pressure is 118/70. Pulse rate is 70 per minute. S1, S2 heard normally. Short systolic murmur noted at the base of the heart. Patient does have a bioprosthetic aortic valve. Lungs are clearer. Abdomen and lower extremity exam unchanged. She will be discharged today and I will see her in the office on August 14. Discharge instructions regarding activity, medications and diet were given. MMODL / IJN: [id number] /
== END 2017-08-05 13:37 | disposition home or self-care (01) ==
LOC: CATHCVL 07:51 → 6SEL 10:15 → CATHCVL 08-05 13:37
PROVIDERS: ATTEND Internal Medicine Interventional Cardiology
DX: I25.119 Atherosclerotic heart disease of native coronary artery with unspecified angina pectoris (principal); I25.709 Atherosclerosis of coronary artery bypass graft(s), unspecified, with unspecified angina pectoris; I25.84 Coronary atherosclerosis due to calcified coronary lesion; I25.82 Chronic total occlusion of coronary artery; E11.22 Type 2 diabetes mellitus with diabetic chronic kidney disease; I12.9 Hypertensive chronic kidney disease with stage 1 through stage 4 chronic kidney disease, or unspecified chronic kidney disease; N18.9 Chronic kidney disease, unspecified; E78.5 Hyperlipidemia, unspecified; Z95.1 Presence of aortocoronary bypass graft; Z95.2 Presence of prosthetic heart valve; Z79.890 Hormone replacement therapy; Z79.4 Long term (current) use of insulin; Z79.51 Long term (current) use of inhaled steroids; Z79.899 Other long term (current) drug therapy; Z79.82 Long term (current) use of aspirin; Z88.0 Allergy status to penicillin; Z82.49 Family history of ischemic heart disease and other diseases of the circulatory system
CPT/HCPCS: 94640 ×2; 94760; 80048; 85025; C9600; C1769 ×3; C1887; C1725 ×3; C1894; C1874; C1760; J2001; J2250; J2270; J1200; J3010; J0583; Q9967

== ENCOUNTER → 2017-08-14 | Outpatient (CLI) | payer MEDICARE ==
[2017-08-14 16:23] LABS: HCT 30.8 % (34.0-46.0); HGB 9.7 gm/dL (11.4-16.0); Hypochromasia Moderate; MCHC 31.5 g/dL (31.0-37.0); MCV 88.6 fL (80.0-100.0); Mean Platelet Volume 6.9; Platelet Count 342 k/uL (150-450); RBC 3.47 m/uL (3.80-5.40); RDW 14.9 % (11.5-15.5); WBC 10.3 k/uL (3.8-10.6)
[2017-08-14 16:30] LABS: Calcium 9.3 mg/dL (8.4-10.2); Potassium 5.7 mmol/L (3.5-5.1)
== END | disposition home or self-care (01) ==
LOC: LABWHC1 15:46
PROVIDERS: ATTEND Internal Medicine Interventional Cardiology
DX: E11.9 Type 2 diabetes mellitus without complications (principal); I25.10 Atherosclerotic heart disease of native coronary artery without angina pectoris
CPT/HCPCS: 36415; 80048; 85027

== ENCOUNTER → 2017-08-25 | Outpatient (CLI) | payer MEDICARE ==
[2017-08-25 13:14] LABS: Calcium 9.1 mg/dL (8.4-10.2); Potassium 5.2 mmol/L (3.5-5.1)
== END | disposition home or self-care (01) ==
LOC: LABWHC1 12:18
PROVIDERS: ATTEND Internal Medicine Interventional Cardiology
DX: E87.5 Hyperkalemia (principal)
CPT/HCPCS: 36415; 80048

== ENCOUNTER 2017-11-14 20:25 | Inpatient (IN) | payer MEDICARE ==
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
[2017-11-14 21:46] LABS: Basophils # (A) 0.1 k/uL (0-0.2); Basophils % (A) 1 %; Eosinophils # (A) 0.2 k/uL (0-0.7); Eosinophils % (A) 2 %; HCT 43.5 % (34.0-46.0); HGB 13.4 gm/dL (11.4-16.0); Hypochromasia Slight; Lymphocytes # (A) 1.2 k/uL (1.0-4.8); Lymphocytes % (A) 15 %; MCH 27.5 pg (25.0-35.0); MCHC 30.9 g/dL (31.0-37.0); MCV 89.2 fL (80.0-100.0); Mean Platelet Volume 7.2; Monocytes # (A) 0.4 k/uL (0-1.0); Monocytes % (A) 5 %; Neutrophils % (A) 76 %; Platelet Count 254 k/uL (150-450); RBC 4.87 m/uL (3.80-5.40); RDW 15.2 % (11.5-15.5)
[2017-11-14 21:55] LABS: Partial Thromboplastin Time 23.1 sec (22.0-30.0); Prothrombin Time 9.9 sec (9.0-12.0)
[2017-11-14 21:59] LABS: Albumin 3.9 g/dL (3.5-5.0); Calcium 9.3 mg/dL (8.4-10.2); Total Bilirubin 0.6 mg/dL (0.2-1.3); Total Protein 7.3 g/dL (6.3-8.2)
[2017-11-14 22:09] LABS: Potassium 6.4 mmol/L (3.5-5.1)
[2017-11-14 22:10] LABS: Creatine Kinase MB 0.7 ng/mL (0.0-2.4); Troponin I 0.015 ng/mL (0.000-0.034)
[2017-11-14] MEDS ORDERED: SODIUM BICARB 8.4% 50 ML SYR (1 MEQ/ML) IV ONE (22:11)
[2017-11-14] MEDS ORDERED: INSULIN REGULAR 100 UNIT/ML VIAL IV ONE (22:11)
[2017-11-14] MEDS ORDERED: DEXTROSE 50%-WATER 50 ML SYRINGE IVP STA (22:11)
[2017-11-14] MEDS ORDERED: SODIUM CHLORIDE 0.9% 2,000 ML IV STA (22:12)
[2017-11-14] MEDS ORDERED: CALCIUM GLUCONATE 1,000 MG in SODIUM CHLORIDE 0.9% 100 ML IVPB ONE (22:30)
[2017-11-14 22:42] LABS: Appearance,Urine Cloudy (Clear); Bacteria,Urine Rare /hpf; Bilirubin,Urine Negative (Negative); Blood,Urine Negative (Negative); Color,Urine Light Yellow; Glucose,Urine (UA) Negative (Negative); Ketones,Urine Negative (Negative); Leukocyte Esterase,Urine Negative (Negative); Mucus,Urine Rare /hpf; Nitrite,Urine Negative (Negative); PH, Urine 5.5 (5.0-8.0); Protein,Urine 1+ (Negative); RBC,Urine 1 /hpf (0-5); Specific Gravity,Urine 1.008 (1.001-1.035); Urobilinogen,Urine <2.0 mg/dL (<2.0); WBC,Urine 17 /hpf (0-5)
[2017-11-15 00:28] LABS: Calcium 8.6 mg/dL (8.4-10.2); Potassium 5.6 mmol/L (3.5-5.1)
[2017-11-15] MEDS ORDERED: NALOXONE 0.4 MG/ML 1 ML VIAL IV PRN (01:19)
[2017-11-15] MEDS: SODIUM CHLORIDE 0.9% 1,000 ML IV SCH ×4 (01:58→17:56)
[2017-11-15 02:25] VITALS: BMI 34.2
[2017-11-15 06:22] LABS: Glucose,Whole Blood 93 mg/dL (75-99)
[2017-11-15] MEDS ORDERED: NITROGLYCERIN SL TABS 0.4 MG TAB SUBLINGUAL PRN (08:10)
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
--- NOTE | 2017-11-15 10:02 | XR ---
EXAMINATION TYPE: XR chest 1V DATE OF EXAM: 11/15/2017 HISTORY: sob. REFERENCE: Previous study dated 09/12/1959. FINDINGS: There has been a midline sternotomy. The heart is mildly enlarged. There is vascular conges tion and interstitial change. There is blunting of the left CP angle I could not exclude a small left effusion. IMPRESSION: FINDINGS MOST CONSISTENT WITH CONGESTIVE HEART FAILURE.
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
[2017-11-15 11:29] LABS: Glucose,Whole Blood 92 mg/dL (75-99)
[2017-11-15] MEDS: SODIUM BICARBONATE TAB 650 MG TAB PO SCH ×3 (11:35→21:20)
[2017-11-15] MEDS: NIFEdipine XL 30 MG TAB.ER.24 PO SCH (11:35)
[2017-11-15] MEDS: ATENOLOL 50 MG TAB PO SCH ×2 (11:35→19:56)
[2017-11-15] MEDS: ASPIRIN 81 MG PO SCH (11:36)
[2017-11-15] MEDS: CLOPIDOGREL 75 MG TAB PO SCH (11:36)
[2017-11-15] MEDS: LEVOTHYROXINE 50 MCG TAB PO SCH (11:36)
[2017-11-15] MEDS: lamoTRIgine 25 MG TAB PO SCH (11:37)
[2017-11-15] MEDS: INSULIN ASPART 100 UNIT/ML 1 ML 10 ML VIAL SQ SCH ×3 (11:44→21:12)
--- NOTE | 2017-11-15 13:17 | US ---
EXAMINATION TYPE: US renals and bladder DATE OF EXAM: 11/15/2017 COMPARISON: None. CLINICAL HISTORY: renal failure. Bladder cath EXAM MEASUREMENTS: Right Kidney: 10.8 x 4.9 x 5.3 cm Left Kidney: 9.9 x 4.8 x 6.5 cm Right Kidney: No hydronephrosis or masses seen Left Kidney: No hydronephrosis or masses seen Bladder: Not visualized due to bladder catheter Bilateral Jets seen: Not seen due to catheter There is no evidence of hydronephrosis or nephrolithiasis. The bladder is not adequately examined due to Iglesias catheterization. IMPRESSION: NORMAL RENAL ULTRASOUND.
[2017-11-15 16:30] LABS: Glucose,Whole Blood 112 mg/dL (75-99)
[2017-11-15 17:19] LABS: Calcium 8.6 mg/dL (8.4-10.2)
[2017-11-15 17:22] LABS: Potassium 6.9 mmol/L (3.5-5.1)
[2017-11-15] MEDS ORDERED: DEXTROSE 50%-WATER 50 ML SYRINGE IVP STA (17:39)
[2017-11-15] MEDS ORDERED: SODIUM CHLORIDE 0.9% 300 ML IV ONE ×2 (17:50→22:41)
[2017-11-15] MEDS: SODIUM POLYSTYRENE SULFONATE 15 GM/60 ML BOTTLE PO SCH ×2 (17:59→22:33)
[2017-11-15] MEDS: FUROSEMIDE 10 MG/ML 2 ML VIAL IV SCH ×2 (17:59→22:32)
[2017-11-15] MEDS ORDERED: CALCIUM GLUCONATE 1,000 MG in SODIUM CHLORIDE 0.9% 100 ML IVPB ONE (18:00)
[2017-11-15] MEDS ORDERED: INSULIN REGULAR 100 UNIT/ML VIAL IV ONE (18:00)
[2017-11-15] MEDS: ATORVASTATIN 40 MG TAB PO SCH (19:56)
[2017-11-15] MEDS: MIRTAZAPINE 15 MG TAB PO SCH (19:56)
[2017-11-15] MEDS: HEPARIN SODIUM,PORCINE 5,000 UNIT/ML 1 ML VIAL SQ SCH (19:56)
[2017-11-15] MEDS: MONTELUKAST 10 MG TAB PO SCH (19:56)
[2017-11-15 21:06] LABS: Glucose,Whole Blood 106 mg/dL (75-99)
[2017-11-15] MEDS: INSULIN DETEMIR 100 UNIT/ML 10 ML VIAL SQ SCH (21:20)
[2017-11-16] MEDS: SODIUM CHLORIDE 0.9% 1,000 ML IV SCH ×3 (03:17→15:22)
[2017-11-16 05:48] LABS: Basophils # (A) 0.1 k/uL (0-0.2); Basophils % (A) 1 %; Eosinophils # (A) 0.3 k/uL (0-0.7); Eosinophils % (A) 4 %; HCT 28.8 % (34.0-46.0); Hypochromasia Moderate; Lymphocytes # (A) 1.1 k/uL (1.0-4.8); Lymphocytes % (A) 15 %; MCH 28.3 pg (25.0-35.0); MCHC 31.3 g/dL (31.0-37.0); MCV 90.4 fL (80.0-100.0); Monocytes # (A) 0.5 k/uL (0-1.0); Monocytes % (A) 7 %; Neutrophils % (A) 71 %; Platelet Count 230 k/uL (150-450); RBC 3.19 m/uL (3.80-5.40); RDW 15.2 % (11.5-15.5)
[2017-11-16 05:57] LABS: Magnesium 1.5 mg/dL (1.6-2.3); Phosphorus 5.7 mg/dL (2.5-4.5); Potassium 5.7 mmol/L (3.5-5.1); Total Bilirubin 0.3 mg/dL (0.2-1.3); Total Protein 5.8 g/dL (6.3-8.2)
[2017-11-16 06:02] LABS: INR 1.1 (<1.2); Prothrombin Time 10.3 sec (9.0-12.0)
[2017-11-16 06:07] LABS: Glucose,Whole Blood 79 mg/dL (75-99)
[2017-11-16] MEDS: INSULIN ASPART 100 UNIT/ML 1 ML 10 ML VIAL SQ SCH ×4 (06:07→21:32)
[2017-11-16] MEDS: LEVOTHYROXINE 50 MCG TAB PO SCH (06:10)
[2017-11-16] MEDS: PANTOPRAZOLE 40 MG TABLET PO SCH (06:10)
[2017-11-16] MEDS: SODIUM BICARBONATE TAB 650 MG TAB PO SCH ×4 (08:48→21:31)
[2017-11-16] MEDS: CLOPIDOGREL 75 MG TAB PO SCH (08:48)
[2017-11-16] MEDS: ASPIRIN 81 MG PO SCH (08:49)
[2017-11-16] MEDS: ATENOLOL 50 MG TAB PO SCH ×2 (08:49→19:27)
[2017-11-16] MEDS: HEPARIN SODIUM,PORCINE 5,000 UNIT/ML 1 ML VIAL SQ SCH ×2 (08:49→19:27)
[2017-11-16] MEDS: NIFEdipine XL 30 MG TAB.ER.24 PO SCH (08:50)
[2017-11-16] MEDS: lamoTRIgine 25 MG TAB PO SCH (08:50)
[2017-11-16] MEDS ORDERED: DEXTROSE 50%-WATER 50 ML SYRINGE IVP STA (09:28)
[2017-11-16] MEDS ORDERED: INSULIN REGULAR 100 UNIT/ML VIAL IV ONE (09:28)
--- NOTE | 2017-11-16 09:29 | P.PN ---
Subjective Patient is seen in follow-up for acute kidney injury and hyperkalemia. Patient has chronic kidney disease stage III with baseline creatinine 1.2 from June 2017. Etiology is diabetic kidney disease. Patient presented with metastatic changes and poor oral intake. Creatinine was 5.56 on admission and has been gradually improving. It is down to 3.42 today. She is currently maintained on normal saline at 150 mL an hour. Potassium level is 5.7. Oral intake is improving. She has a Iglesias catheter in place. No vomiting or diarrhea. Denies chest pain or shortness of breath. Vital signs are stable. General: The patient appeared well nourished and normally developed. HEENT: Head exam is unremarkable. Neck is without jugular venous distension. LUNGS: Lungs are clear to auscultation and percussion. Breath sounds decreased. HEART: Rate and Rhythm are regular. First and second heart sounds normal. No murmurs, rubs or gallops. ABDOMEN: Abdominal exam reveals normal bowel sounds. Non-tender and non- distended. No evidence of peritonitis. EXTREMITITES: Trace edema. Left foot wound noted. No obvious drainage. Objective - Vital Signs Vital signs: Vital Signs Temp 97.9 F 11/16/17 00:00 Pulse 55 L 11/16/17 04:00 Resp 18 11/16/17 04:00 BP 132/83 11/16/17 04:00 Pulse Ox 96 11/16/17 04:00 Intake & Output 11/15/17 11/16/17 11/16/17 18:59 06:59 18:59 Intake Total 1230 2400 120 Output Total 1950 Balance 1230 450 120 Weight 90.5 kg Intake: IV 900 2400 Sodium Chloride 0.9% 1, 900 2400 000 ml @ 150 mls/hr IV . Q6H40M [facility] Rx#:[id number] Oral 330 120 Output: Urine 1950 Other: Voiding Method Indwelling Catheter Indwelling Catheter # Voids 2 - Labs CBC & Chem 7: 11/16/17 05:24 11/16/17 05:24 Labs: Abnormal Lab Results - Last 24 Hours (Table) 11/15/17 11/15/17 11/15/17 Range/Units 16:24 16:38 21:05 RBC (3.80-5.40) m/uL Hgb (11.4-16.0) gm/dL Hct (34.0-46.0) % Potassium 6.9 H* (3.5-5.1) mmol/L Chloride 114 H (98-107) mmol/L Carbon Dioxide 18 L (22-30) mmol/L BUN 46 H (7-17) mg/dL Creatinine 4.12 H (0.52-1.04) mg/dL Glucose 114 H (74-99) mg/dL POC Glucose (mg/dL) 112 H 106 H (75-99) mg/dL Phosphorus (2.5-4.5) mg/dL Magnesium (1.6-2.3) mg/dL Total Protein (6.3-8.2) g/dL Albumin (3.5-5.0) g/dL 11/15/17 11/16/17 11/16/17 Range/Units 21:40 05:24 05:24 RBC 3.19 L (3.80-5.40) m/uL Hgb 9.0 L D (11.4-16.0) gm/dL Hct 28.8 L (34.0-46.0) % Potassium 6.4 H* 5.7 H (3.5-5.1) mmol/L Chloride 114 H (98-107) mmol/L Carbon Dioxide (22-30) mmol/L BUN 40 H (7-17) mg/dL Creatinine 3.42 H (0.52-1.04) mg/dL Glucose (74-99) mg/dL POC Glucose (mg/dL) (75-99) mg/dL Phosphorus 5.7 H (2.5-4.5) mg/dL Magnesium 1.5 L (1.6-2.3) mg/dL Total Protein 5.8 L (6.3-8.2) g/dL Albumin 3.0 L (3.5-5.0) g/dL Assessment and Plan Plan: Assessment: 1. Nonoliguric acute kidney injury mostly prerenal from poor oral intake and GUERITA inhibitor. Improving with IV hydration. Creatinine down to 3.42 today. He was 5.56 on admission. No evidence of hydronephrosis. She has a Iglesias catheter in place. 2. Hyperkalemia secondary to acute kidney injury, metabolic acidosis and use of GUERITA inhibitor. Improving with medical management. 3. Chronic kidney disease stage III with creatinine of 1.2 in June 2017. Etiology is diabetic kidney disease. 4. Anemia. Rule out iron deficiency. 5. Diabetes mellitus. 6. Coronary artery disease status post cardiac cath in April 2017. 7. Metabolic acidosis secondary to acute kidney injury. 8. Hypertension with chronic kidney disease. Controlled. Plan: I will decrease the rate of normal saline to 75 mL an hour. 10 units of IV insulin with amp of D50 now. Low potassium diet. Continue to hold GUERITA inhibitor. Repeat potassium level at 4 PM today. Encouraged oral intake. Avoid nephrotoxins. Maintain oral bicarbonate for now.
[2017-11-16] MEDS: MAGNESIUM SULFATE-D5W PMX 1 GM in DEXTROSE/WATER 1 100ML.BAG IVPB SCH ×2 (11:20→13:45)
[2017-11-16 11:51] LABS: Glucose,Whole Blood 96 mg/dL (75-99)
--- NOTE | 2017-11-16 13:51 | P.PN ---
Subjective Progress Note Date: 11/16/17 This is a 71-year-old female was admitted to the hospital with symptoms of generalized malaise and fatigue associated with hyperkalemia and elevated BUN and creatinine, she was noted to be significantly hypertensive for which a cardiology consultation was requested. Patient was seen yesterday by Dr. Trujillo. Her blood pressure this morning is 126/50 with a heart rate in the 50s, temperature 98.3, 100% on 2 L of oxygen. White blood cell count 7.0, hemoglobin 9, platelet count 2:30. Sodium 143, potassium 5.7, BUN 40, creatinine 3.4. Magnesium. Level I.5. Echocardiogram with Doppler study has been performed and pending. Objective - Vital Signs Vital signs: Vital Signs Temp 98.3 F 11/16/17 12:00 Pulse 52 L 11/16/17 12:00 Resp 18 11/16/17 12:00 BP 126/58 11/16/17 12:00 Pulse Ox 100 11/16/17 12:00 Intake & Output 11/15/17 11/16/17 11/16/17 18:59 06:59 18:59 Intake Total 1230 2400 120 Output Total 1950 Balance 1230 450 120 Weight 90.5 kg Intake: IV 900 2400 Sodium Chloride 0.9% 1, 900 2400 000 ml @ 150 mls/hr IV . Q6H40M COUNT INCLUDES [facility] Rx#:[id number] Oral 330 120 Output: Urine 1950 Other: Voiding Method Indwelling Catheter Indwelling Catheter Indwelling Catheter # Voids 2 - Exam PHYSICAL EXAMINATION: GENERAL: 71-year-old female in no acute distress at the time of my examination HEENT: Head is atraumatic, normocephalic. Pupils equal, round. Sclera anicteric. Conjunctiva are clear. Mucous membranes of the mouth are moist. Neck is supple. There is no elevated jugular venous pressure.] bruit is heard. HEART EXAMINATION: Heart S1, S2 normal. No murmur or gallop heard. CHEST EXAMINATION: Lungs are clear to auscultation and precussion. No chest wall tenderness is noted on palpation or with deep breathing. ABDOMEN: Soft, nontender. Bowel sounds are heard. No organomegaly noted. EXTREMITIES: 2+ peripheral pulses with no evidence of peripheral edema and no calf tenderness noted. NEUROLOGIC patient is awake, alert and oriented ?-3. . - Labs CBC & Chem 7: 11/16/17 05:24 18 05:24 Labs: Abnormal Lab Results - Last 24 Hours (Table) 11/15/17 11/15/17 11/15/17 Range/Units 16:24 16:38 21:05 RBC (3.80-5.40) m/uL Hgb (11.4-16.0) gm/dL Hct (34.0-46.0) % Potassium 6.9 H* (3.5-5.1) mmol/L Chloride 114 H (98-107) mmol/L Carbon Dioxide 18 L (22-30) mmol/L BUN 46 H (7-17) mg/dL Creatinine 4.12 H (0.52-1.04) mg/dL Glucose 114 H (74-99) mg/dL POC Glucose (mg/dL) 112 H 106 H (75-99) mg/dL Phosphorus (2.5-4.5) mg/dL Magnesium (1.6-2.3) mg/dL Total Protein (6.3-8.2) g/dL Albumin (3.5-5.0) g/dL 11/15/17 11/16/17 11/16/17 Range/Units 21:40 05:24 05:24 RBC 3.19 L (3.80-5.40) m/uL Hgb 9.0 L D (11.4-16.0) gm/dL Hct 28.8 L (34.0-46.0) % Potassium 6.4 H* 5.7 H (3.5-5.1) mmol/L Chloride 114 H (98-107) mmol/L Carbon Dioxide (22-30) mmol/L BUN 40 H (7-17) mg/dL Creatinine 3.42 H (0.52-1.04) mg/dL Glucose (74-99) mg/dL POC Glucose (mg/dL) (75-99) mg/dL Phosphorus 5.7 H (2.5-4.5) mg/dL Magnesium 1.5 L (1.6-2.3) mg/dL Total Protein 5.8 L (6.3-8.2) g/dL Albumin 3.0 L (3.5-5.0) g/dL Assessment and Plan Plan: Assessment and plan #1 hypertensive urgency #2 non-oliguric acute kidney injury, on top of a chronic kidney disease stage III #3 anemia #4 diabetes #5 hyperlipidemia Plan We will continue the patient on her current medications. We will review the echocardiogram with Doppler study. DNP note has been reviewed, I agree with a documented findings and plan of care. Patient was seen and examined.
[2017-11-16 16:25] LABS: Glucose,Whole Blood 155 mg/dL (75-99)
[2017-11-16 16:58] LABS: Iron Saturation 15.25 (12.00-45.00)
[2017-11-16] MEDS: ATORVASTATIN 40 MG TAB PO SCH (19:27)
--- NOTE | 2017-11-16 19:27 | PN ---
PROGRESS NOTE DATE OF SERVICE: 11/16/2017 Ms. Lucy Barnes is seen evaluated examined on the 6th floor. She is awake, sitting upright in the bed. Breathing comfortably. Mental status has significantly improved. The patient is being followed by renal services as well. This patient has been admitted into the hospital with severe hyperkalemia. The patient had a rise in potassium requiring 2 extra doses of Kayexalate. Her last set of vitals include blood pressure is 126/68, respiratory 18, pulse 52, temp is 98, saturating 100% on 2 L oxygen. HEENT atraumatic, normocephalic. Pharynx is clear. Narrow pharyngeal opening is present. Neck is supple without lymphadenopathy, jugular venous distention or carotid bruit. Lungs bilateral good air entry is present without significant rales, rhonchi or rub. Heart regular rate and rhythm. S1, S2 audible. Abdomen is soft. No rebound, rigidity. Extremities +1 peripheral pulses. Neurological examination otherwise awake and alert. LABS: Reviewed. Potassium went up to 6.4, came down to 5.7 now. White cell count is 7000. BUN and creatinine is 40 and 3.42. Continue to improve progressively. Renal ultrasound performed. Reviewed as well, which revealed no evidence of hydronephrosis or nephrolithiasis. Cardiovascular Service is following this patient. Labs reviewed. Medications reviewed. IMPRESSION: 1. Acute renal failure related to intravascular volume depletion and dehydration. 2. Severe hyperkalemia related to GUERITA inhibitors as well as severe profound metabolic acidosis. 3. Chronic renal failure, baseline. 4. Chronic anemia. 5. Diabetes mellitus. PLAN AND RECOMMENDATIONS: Continue gentle hydration. Continue current medications. Hold on GUERITA inhibitors. Monitor sugar and labs closely. We will follow. Further recommendations pending. MMODL / IJN: [id number] /
[2017-11-16] MEDS: MIRTAZAPINE 15 MG TAB PO SCH (19:28)
[2017-11-16] MEDS: MONTELUKAST 10 MG TAB PO SCH (19:28)
[2017-11-16 21:12] LABS: Glucose,Whole Blood 164 mg/dL (75-99)
[2017-11-16] MEDS: INSULIN DETEMIR 100 UNIT/ML 10 ML VIAL SQ SCH (21:31)
[2017-11-16] MEDS: HYDROcodone/APAP 7.5-325MG 1 EACH TAB PO PRN (21:39)
[2017-11-17] MEDS: SODIUM CHLORIDE 0.9% 1,000 ML IV SCH ×2 (05:24→20:44)
[2017-11-17] MEDS: LEVOTHYROXINE 50 MCG TAB PO SCH (06:03)
[2017-11-17] MEDS: PANTOPRAZOLE 40 MG TABLET PO SCH (06:03)
[2017-11-17] MEDS: INSULIN ASPART 100 UNIT/ML 1 ML 10 ML VIAL SQ SCH ×4 (06:10→22:01)
[2017-11-17 06:11] LABS: Glucose,Whole Blood 92 mg/dL (75-99)
[2017-11-17 06:53] LABS: Calcium 8.7 mg/dL (8.4-10.2); Magnesium 1.8 mg/dL (1.6-2.3); Potassium 4.9 mmol/L (3.5-5.1)
[2017-11-17] MEDS: ASPIRIN 81 MG PO SCH (09:30)
[2017-11-17] MEDS: CLOPIDOGREL 75 MG TAB PO SCH (09:30)
[2017-11-17] MEDS: ATENOLOL 50 MG TAB PO SCH ×2 (09:30→21:17)
[2017-11-17] MEDS: HEPARIN SODIUM,PORCINE 5,000 UNIT/ML 1 ML VIAL SQ SCH ×2 (09:30→22:05)
[2017-11-17] MEDS: SODIUM BICARBONATE TAB 650 MG TAB PO SCH ×4 (09:31→21:19)
[2017-11-17] MEDS: NIFEdipine XL 30 MG TAB.ER.24 PO SCH (09:31)
[2017-11-17] MEDS: lamoTRIgine 25 MG TAB PO SCH (09:31)
[2017-11-17] MEDS ORDERED: hydrALAZINE HCL 20 MG/ML 1 ML VIAL IVP PRN (09:58)
--- NOTE | 2017-11-17 09:58 | P.PN ---
Subjective Patient is seen in follow-up for acute kidney injury and hyperkalemia. Patient has chronic kidney disease stage III with baseline creatinine 1.2 from June 2017. Etiology is diabetic kidney disease. Patient presented with mental status changes and poor oral intake. Creatinine was 5.56 on admission and has been gradually improving. It is down to 2.48 today. She is currently maintained on normal saline at 75 mL an hour. Potassium level now normal. Oral intake is improving. She has a Iglesias catheter in place. No vomiting or diarrhea. Denies chest pain or shortness of breath. Vital signs are stable. General: The patient appeared well nourished and normally developed. HEENT: Head exam is unremarkable. Neck is without jugular venous distension. LUNGS: Lungs are clear to auscultation and percussion. Breath sounds decreased. HEART: Rate and Rhythm are regular. First and second heart sounds normal. No murmurs, rubs or gallops. ABDOMEN: Abdominal exam reveals normal bowel sounds. Non-tender and non- distended. No evidence of peritonitis. EXTREMITITES: Trace edema. Left foot wound noted. No obvious drainage. Objective - Vital Signs Vital signs: Vital Signs Temp 97.7 F 11/17/17 08:00 Pulse 70 11/17/17 08:00 Resp 18 11/17/17 08:00 BP 165/72 11/17/17 08:00 Pulse Ox 100 11/17/17 08:00 Intake & Output 11/16/17 11/17/17 11/17/17 18:59 06:59 18:59 Intake Total 462 825 360 Output Total 700 1100 Balance -238 -275 360 Weight 93.3 kg Intake: IV 825 Sodium Chloride 0.9% 1, 825 000 ml @ 75 mls/hr IV . [id number] [facility] Rx#:[id number] Oral 462 360 Output: Urine 700 1100 Uretheral (Iglesias) 400 Other: Voiding Method Indwelling Catheter Indwelling Catheter Indwelling Catheter - Labs CBC & Chem 7: 11/16/17 05:24 11/17/17 05:57 Labs: Abnormal Lab Results - Last 24 Hours (Table) 11/16/17 11/16/17 11/16/17 Range/Units 05:24 16:14 21:11 Chloride (98-107) mmol/L Carbon Dioxide (22-30) mmol/L BUN (7-17) mg/dL Creatinine (0.52-1.04) mg/dL POC Glucose (mg/dL) 155 H 164 H (75-99) mg/dL Iron 34 L (50-170) ug/dL TIBC 223 L (228-460) ug/dL 11/17/17 Range/Units 05:57 Chloride 113 H (98-107) mmol/L Carbon Dioxide 21 L (22-30) mmol/L BUN 31 H (7-17) mg/dL Creatinine 2.48 H (0.52-1.04) mg/dL POC Glucose (mg/dL) (75-99) mg/dL Iron (50-170) ug/dL TIBC (228-460) ug/dL Assessment and Plan Plan: Assessment: 1. Nonoliguric acute kidney injury mostly prerenal from poor oral intake and GUERITA inhibitor. Improving with IV hydration. Creatinine down to 2.48 today. It was 5.56 on admission. No evidence of hydronephrosis. She has a Iglesias catheter in place. 2. Hyperkalemia secondary to acute kidney injury, metabolic acidosis and use of GUERITA inhibitor. Improved with medical management. 3. Chronic kidney disease stage III with creatinine of 1.2 in June 2017. Etiology is diabetic kidney disease. 4. Anemia. Iron deficiency noted. 5. Diabetes mellitus. 6. Coronary artery disease status post cardiac cath in April 2017. 7. Metabolic acidosis secondary to acute kidney injury. 8. Hypertension with chronic kidney disease. Plan: I will decrease the rate of normal saline to 50 mL an hour. Continue to hold GUERITA inhibitor. Encouraged oral intake. Avoid nephrotoxins. Maintain oral bicarbonate for now. Ferrlecit 125 mg IV daily for 3 days. First dose today. Repeat electrolytes, including phosphorus level in the morning.
[2017-11-17] MEDS: ALBUTEROL NEBULIZED 2.5 MG/3 ML INHALATION PRN ×4 (10:11→20:36)
[2017-11-17 11:22] LABS: Glucose,Whole Blood 137 mg/dL (75-99)
[2017-11-17] MEDS: SODIUM FERRIC GLUCONAT-SUCROSE 125 MG in SODIUM CHLORIDE 0.9% 100 ML IVPB SCH (11:42)
--- NOTE | 2017-11-17 14:43 | XR ---
EXAMINATION TYPE: XR chest 1V portable DATE OF EXAM: 11/17/2017 COMPARISON: 11/15/2017 HISTORY: Shortness of breath FINDINGS: There are bilateral pleural effusions with cardiomegaly and bibasilar infiltrate. There is a diffuse interstitial pattern. Postsurgical changes seen. IMPRESSION: 1. Diffuse pleural-parenchymal changes correlate for CHF with pulmonary edema. Underlying pneumonia n ot excluded.
[2017-11-17] MEDS ORDERED: FUROSEMIDE 10 MG/ML 4 ML VIAL IV SCH (14:45)
[2017-11-17] MEDS ORDERED: FUROSEMIDE 10 MG/ML 4 ML VIAL IV STA (14:46)
[2017-11-17] MEDS ORDERED: NITROGLYCERIN OINT 1 INCH/GM PACKET TOPICAL ONE (14:57)
--- NOTE | 2017-11-17 14:58 | P.PN ---
Subjective Progress Note Date: 11/17/17 This is a 71-year-old female was admitted to the hospital with symptoms of generalized malaise and fatigue associated with hyperkalemia and elevated BUN and creatinine, she was noted to be significantly hypertensive for which a cardiology consultation was requested. Patient was seen yesterday by Dr. Trujillo. Her blood pressure this morning is 126/50 with a heart rate in the 50s, temperature 98.3, 100% on 2 L of oxygen. White blood cell count 7.0, hemoglobin 9, platelet count 2:30. Sodium 143, potassium 5.7, BUN 40, creatinine 3.4. Magnesium. Level I.5. Echocardiogram with Doppler study has been performed and pending. 11/17/2017 Patient seen and examined this afternoon, extremely short of breath, using all accessory muscles to breathe, sitting up straight in bed at the time of my examination. Stat chest x-ray was requested, patient was also given 40 mg of IV Lasix and started on IV Lasix twice a day. Chest x-ray showed acute pulmonary edema. Blood pressure 134/76, heart rate in the 90s, respirations 30. NOn rebreather mask will be applied. Sodium 144, potassium 4.9, BUN 31, creatinine 2.4, magnesium 1.8. Objective - Vital Signs Vital signs: Vital Signs Temp 98.0 F 11/17/17 10:31 Pulse 92 11/17/17 14:29 Resp 18 11/17/17 12:00 BP 142/85 11/17/17 10:31 Pulse Ox 94 L 11/17/17 10:31 Intake & Output 11/16/17 11/17/17 11/17/17 18:59 06:59 18:59 Intake Total 462 825 360 Output Total 700 1100 Balance -238 -849 360 Weight 93.3 kg Intake: IV 825 Sodium Chloride 0.9% 1, 825 000 ml @ 75 mls/hr IV . [id number] [facility] Rx#:[id number] Oral 462 360 Output: Urine 700 1100 Uretheral (Iglesias) 400 Other: Voiding Method Indwelling Catheter Indwelling Catheter Toilet - Exam PHYSICAL EXAMINATION: GENERAL: 71-year-old female appears to be in respiratory distress at the time of my examination. HEENT: Head is atraumatic, normocephalic. Pupils equal, round. Sclera anicteric. Conjunctiva are clear. Mucous membranes of the mouth are moist. Neck is supple. There is elevated jugular venous pressure.] bruit is heard. HEART EXAMINATION: Heart S1, S2 normal. No murmur or gallop heard. CHEST EXAMINATION: Lungs reveal rales bilaterally with diminished air entry bilaterally. ABDOMEN: Soft, nontender. Bowel sounds are heard. No organomegaly noted. EXTREMITIES: 2+ peripheral pulses with no evidence of peripheral edema and no calf tenderness noted. NEUROLOGIC patient is awake, alert and oriented ?-3. . - Labs CBC & Chem 7: 11/16/17 05:24 11/17/17 05:57 Labs: Abnormal Lab Results - Last 24 Hours (Table) 11/16/17 11/16/17 11/16/17 Range/Units 05:24 16:14 21:11 Chloride (98-107) mmol/L Carbon Dioxide (22-30) mmol/L BUN (7-17) mg/dL Creatinine (0.52-1.04) mg/dL POC Glucose (mg/dL) 155 H 164 H (75-99) mg/dL Iron 34 L (50-170) ug/dL TIBC 223 L (228-460) ug/dL 11/17/17 11/17/17 Range/Units 05:57 11:21 Chloride 113 H (98-107) mmol/L Carbon Dioxide 21 L (22-30) mmol/L BUN 31 H (7-17) mg/dL Creatinine 2.48 H (0.52-1.04) mg/dL POC Glucose (mg/dL) 137 H (75-99) mg/dL Iron (50-170) ug/dL TIBC (228-460) ug/dL Assessment and Plan Plan: Assessment and plan #1 hypertensive urgency #2 non-oliguric acute kidney injury, on top of a chronic kidney disease stage III #3 anemia #4 diabetes #5 hyperlipidemia Plan Patient seen and examined around 2:30 this afternoon, and acute respiratory distress, stat chest x-ray was obtained which revealed pulmonary edema, patient has been given 40 mg of IV Lasix, we will repeat that dose times one and put her on 40 IV twice a day. A nonrebreather mask is also been applied, we'll give the patient some Nitropaste. If the patient does not respond within a short period of time, recommend transfer to the intensive care unit. DNP note has been reviewed, I agree with a documented findings and plan of care. Patient was seen and examined.
[2017-11-17] MEDS ORDERED: FUROSEMIDE 10 MG/ML 2 ML VIAL IV STA (15:27)
[2017-11-17] MEDS: FUROSEMIDE 10 MG/ML 4 ML VIAL IV SCH ×2 (16:05→21:47)
[2017-11-17 16:43] LABS: Glucose,Whole Blood 174 mg/dL (75-99)
[2017-11-17] MEDS: HYDROcodone/APAP 7.5-325MG 1 EACH TAB PO PRN (20:01)
[2017-11-17 20:57] LABS: Glucose,Whole Blood 196 mg/dL (75-99)
[2017-11-17] MEDS: ATORVASTATIN 40 MG TAB PO SCH (21:17)
[2017-11-17] MEDS: MIRTAZAPINE 15 MG TAB PO SCH (21:18)
[2017-11-17] MEDS: MONTELUKAST 10 MG TAB PO SCH (21:19)
[2017-11-17] MEDS: INSULIN DETEMIR 100 UNIT/ML 10 ML VIAL SQ SCH (21:59)
--- NOTE | 2017-11-17 23:52 | PN ---
PROGRESS NOTE SUBJECTIVE: A 71-year-old white female presents to the hospital after not eating and drinking for 2 days, had severe prerenal azotemia which is greatly improved now, currently down to 2.3 down from 5.99. CARDIOVASCULAR: S1, S2. LUNGS: Clear. GI: Soft. HEMATOLOGY: Negative Homans'. PSYCH: Fair mood and affect. Crying over family issues she has. Her mother wants her group home check and disability check and she is starving herself at home because she does not want live anymore. I discussed with her turning over all of her mom's financial issues to her brother and taking it easy. As mentioned, BUN 31, creatinine 2.48. ASSESSMENT: 1. Hypertensive urgency. 2. Severe prerenal azotemia. 3. Chronic kidney disease stage 3. 4. Anemia. 5. Diabetes mellitus. 6. Dyslipidemia. 7. She has some pulmonary edema. She was given 40 of Lasix today. Cardiology for further recommendations and some nitro paste is given. Please see further orders. Check electrolytes in the morning. MMODL / IJN: [id number] /
[2017-11-18 06:21] LABS: Glucose,Whole Blood 103 mg/dL (75-99)
[2017-11-18] MEDS: INSULIN ASPART 100 UNIT/ML 1 ML 10 ML VIAL SQ SCH ×4 (06:36→21:38)
[2017-11-18] MEDS: PANTOPRAZOLE 40 MG TABLET PO SCH (06:37)
[2017-11-18] MEDS: LEVOTHYROXINE 50 MCG TAB PO SCH (06:37)
[2017-11-18 08:31] LABS: Basophils # (A) 0.1 k/uL (0-0.2); Basophils % (A) 1 %; Eosinophils # (A) 0.2 k/uL (0-0.7); Eosinophils % (A) 3 %; HCT 28.6 % (34.0-46.0); Hypochromasia Slight; Lymphocytes # (A) 1.1 k/uL (1.0-4.8); Lymphocytes % (A) 13 %; MCH 27.5 pg (25.0-35.0); MCHC 31.6 g/dL (31.0-37.0); MCV 86.9 fL (80.0-100.0); Mean Platelet Volume 7.5; Monocytes # (A) 0.4 k/uL (0-1.0); Monocytes % (A) 5 %; Neutrophils # (A) 6.6 k/uL (1.3-7.7); Neutrophils % (A) 77 %; Platelet Count 272 k/uL (150-450); RBC 3.29 m/uL (3.80-5.40); RDW 15.3 % (11.5-15.5); WBC 8.5 k/uL (3.8-10.6)
[2017-11-18] MEDS: FUROSEMIDE 10 MG/ML 4 ML VIAL IV SCH ×2 (08:43→21:07)
[2017-11-18] MEDS: ATENOLOL 50 MG TAB PO SCH ×2 (08:43→20:58)
[2017-11-18] MEDS: HEPARIN SODIUM,PORCINE 5,000 UNIT/ML 1 ML VIAL SQ SCH ×2 (08:43→21:02)
[2017-11-18] MEDS: CLOPIDOGREL 75 MG TAB PO SCH (08:43)
[2017-11-18] MEDS: ASPIRIN 81 MG PO SCH (08:43)
[2017-11-18] MEDS: lamoTRIgine 25 MG TAB PO SCH (08:44)
[2017-11-18] MEDS: NIFEdipine XL 30 MG TAB.ER.24 PO SCH (08:45)
[2017-11-18] MEDS: SODIUM BICARBONATE TAB 650 MG TAB PO SCH ×4 (08:45→23:27)
[2017-11-18 08:49] LABS: Albumin 3.2 g/dL (3.5-5.0); Calcium 8.4 mg/dL (8.4-10.2); Magnesium 1.2 mg/dL (1.6-2.3); Phosphorus 4.9 mg/dL (2.5-4.5); Potassium 3.9 mmol/L (3.5-5.1); Total Bilirubin 0.5 mg/dL (0.2-1.3); Total Protein 6.2 g/dL (6.3-8.2)
[2017-11-18] MEDS: ALBUTEROL NEBULIZED 2.5 MG/3 ML INHALATION PRN ×3 (08:49→17:02)
[2017-11-18] MEDS: SODIUM FERRIC GLUCONAT-SUCROSE 125 MG in SODIUM CHLORIDE 0.9% 100 ML IVPB SCH (09:16)
--- NOTE | 2017-11-18 09:58 | P.PN ---
Subjective Patient is seen in follow-up for acute kidney injury and hyperkalemia. Patient has chronic kidney disease stage III with baseline creatinine 1.2 from June 2017. Etiology is diabetic kidney disease. Patient presented with mental status changes and poor oral intake. Creatinine was 5.56 on admission and has been gradually improving. It is down to 2.04 today. She is currently maintained on normal saline at 75 mL an hour. Potassium level now normal. Oral intake is improving. She has a Iglesias catheter in place. No vomiting or diarrhea. Denies chest pain or shortness of breath. Vital signs are stable. General: The patient appeared well nourished and normally developed. HEENT: Head exam is unremarkable. Neck is without jugular venous distension. LUNGS: Lungs are clear to auscultation and percussion. Breath sounds decreased. HEART: Rate and Rhythm are regular. First and second heart sounds normal. No murmurs, rubs or gallops. ABDOMEN: Abdominal exam reveals normal bowel sounds. Non-tender and non- distended. No evidence of peritonitis. EXTREMITITES: Trace edema. Left foot wound noted. No obvious drainage. Objective - Vital Signs Vital signs: Vital Signs Temp 97.4 F L 11/18/17 04:00 Pulse 62 11/18/17 09:04 Resp 19 11/18/17 04:00 BP 152/65 11/18/17 04:00 Pulse Ox 96 11/18/17 04:00 Intake & Output 11/17/17 11/18/17 11/18/17 18:59 06:59 18:59 Intake Total 600 320 Output Total 800 2450 Balance -200 -2130 Weight 94.5 kg Intake: IV 320 Invasive Line 3 20 Sodium Chloride 0.9% 1, 300 000 ml @ 50 mls/hr IV . Q20H [facility] Rx#:[id number] Oral 600 Output: Urine 800 2450 Other: Voiding Method Indwelling Catheter Indwelling Catheter # Voids 1 # Bowel Movements 0 - Labs CBC & Chem 7: 11/18/17 07:56 11/18/17 07:56 Labs: Abnormal Lab Results - Last 24 Hours (Table) 11/17/17 11/17/17 11/17/17 Range/Units 11:21 16:41 20:56 RBC (3.80-5.40) m/uL Hgb (11.4-16.0) gm/dL Hct (34.0-46.0) % BUN (7-17) mg/dL Creatinine (0.52-1.04) mg/dL Glucose (74-99) mg/dL POC Glucose (mg/dL) 137 H 174 H 196 H (75-99) mg/dL Phosphorus (2.5-4.5) mg/dL Magnesium (1.6-2.3) mg/dL Total Protein (6.3-8.2) g/dL Albumin (3.5-5.0) g/dL 11/18/17 11/18/17 11/18/17 Range/Units 06:19 07:56 07:56 RBC 3.29 L (3.80-5.40) m/uL Hgb 9.0 L (11.4-16.0) gm/dL Hct 28.6 L (34.0-46.0) % BUN 25 H (7-17) mg/dL Creatinine 2.04 H (0.52-1.04) mg/dL Glucose 117 H (74-99) mg/dL POC Glucose (mg/dL) 103 H (75-99) mg/dL Phosphorus 4.9 H (2.5-4.5) mg/dL Magnesium 1.2 L (1.6-2.3) mg/dL Total Protein 6.2 L (6.3-8.2) g/dL Albumin 3.2 L (3.5-5.0) g/dL Assessment and Plan Plan: Assessment: 1. Nonoliguric acute kidney injury mostly prerenal from poor oral intake and GUERITA inhibitor. Improving with IV hydration. Creatinine down to 2.04 today. It was 5.56 on admission. No evidence of hydronephrosis. She has a Iglesias catheter in place. 2. Hyperkalemia secondary to acute kidney injury, metabolic acidosis and use of GUERITA inhibitor. Improved with medical management. 3. Chronic kidney disease stage III with creatinine of 1.2 in June 2017. Etiology is diabetic kidney disease. 4. Anemia. Iron deficiency noted. 5. Diabetes mellitus. 6. Coronary artery disease status post cardiac cath in April 2017. 7. Metabolic acidosis secondary to acute kidney injury. Improved. 8. Hypertension with chronic kidney disease. Controlled. 9. Hyperphosphatemia secondary to acute kidney injury. Improving with improving renal function. 10. Hypomagnesemia secondary to diuresis. 11. Volume overload noted on chest x-ray. Plan: Hep-Lock IV fluids. Maintain Lasix 40 mg twice daily for another 24 hours. Continue to hold GUERITA inhibitor. Encouraged oral intake. Avoid nephrotoxins. Maintain oral bicarbonate for now. Ferrlecit 125 mg IV daily for 3 days. Second dose today. Repeat electrolytes in the morning. Replace magnesium. 3 g IV today.
[2017-11-18 11:45] LABS: Glucose,Whole Blood 145 mg/dL (75-99)
[2017-11-18] MEDS: MAGNESIUM SULFATE-D5W PMX 1 GM in DEXTROSE/WATER 1 100ML.BAG IVPB SCH ×3 (12:46→16:50)
--- NOTE | 2017-11-18 14:59 | P.PN ---
Subjective Progress Note Date: 11/18/17 This is a 71-year-old female was admitted to the hospital with symptoms of generalized malaise and fatigue associated with hyperkalemia and elevated BUN and creatinine, she was noted to be significantly hypertensive for which a cardiology consultation was requested. Patient was seen yesterday by Dr. Trujillo. Her blood pressure this morning is 126/50 with a heart rate in the 50s, temperature 98.3, 100% on 2 L of oxygen. White blood cell count 7.0, hemoglobin 9, platelet count 2:30. Sodium 143, potassium 5.7, BUN 40, creatinine 3.4. Magnesium. Level I.5. Echocardiogram with Doppler study has been performed and pending. 11/17/2017 Patient seen and examined this afternoon, extremely short of breath, using all accessory muscles to breathe, sitting up straight in bed at the time of my examination. Stat chest x-ray was requested, patient was also given 40 mg of IV Lasix and started on IV Lasix twice a day. Chest x-ray showed acute pulmonary edema. Blood pressure 134/76, heart rate in the 90s, respirations 30. NOn rebreather mask will be applied. Sodium 144, potassium 4.9, BUN 31, creatinine 2.4, magnesium 1.8. 11/18/2017 Patient was seen and examined this morning, breathi diuresed well on IV Lasix. ng is significantly improved today, she was sitting up in the chair at the time of my examination. Blood pressure 126/60 with a heart rate in the 60s, 97% on room air. Sodium 143, potassium 3.9, BUN 25, creatinine 2.0. Magnesium 1.2, BNP level 6360. Objective - Vital Signs Vital signs: Vital Signs Temp 97.4 F L 11/18/17 04:00 Pulse 61 11/18/17 13:20 Resp 19 11/18/17 04:00 BP 152/65 11/18/17 04:00 Pulse Ox 96 11/18/17 04:00 Intake & Output 11/17/17 11/18/17 11/18/17 18:59 06:59 18:59 Intake Total 600 320 360 Output Total 800 2450 400 Balance -200 -2130 -40 Weight 94.5 kg Intake: IV 320 Invasive Line 3 20 Sodium Chloride 0.9% 1, 300 000 ml @ 50 mls/hr IV . Q20H [facility] Rx#:[id number] Oral 600 360 Output: Urine 800 2450 400 Other: Voiding Method Indwelling Catheter Indwelling Catheter # Voids 1 # Bowel Movements 0 - Exam PHYSICAL EXAMINATION: GENERAL: 71-year-old female appears to be in respiratory distress at the time of my examination. HEENT: Head is atraumatic, normocephalic. Pupils equal, round. Sclera anicteric. Conjunctiva are clear. Mucous membranes of the mouth are moist. Neck is supple. There is elevated jugular venous pressure.] bruit is heard. HEART EXAMINATION: Heart S1, S2 normal. No murmur or gallop heard. CHEST EXAMINATION: Lungs reveal significant improvement, fine rales heard bilaterally today. ABDOMEN: Soft, nontender. Bowel sounds are heard. No organomegaly noted. EXTREMITIES: 2+ peripheral pulses with no evidence of peripheral edema and no calf tenderness noted. NEUROLOGIC patient is awake, alert and oriented ?-3. . - Labs CBC & Chem 7: 11/18/17 07:56 11/18/17 07:56 Labs: Abnormal Lab Results - Last 24 Hours (Table) 11/17/17 11/17/17 11/18/17 Range/Units 16:41 20:56 06:19 RBC (3.80-5.40) m/uL Hgb (11.4-16.0) gm/dL Hct (34.0-46.0) % BUN (7-17) mg/dL Creatinine (0.52-1.04) mg/dL Glucose (74-99) mg/dL POC Glucose (mg/dL) 174 H 196 H 103 H (75-99) mg/dL Phosphorus (2.5-4.5) mg/dL Magnesium (1.6-2.3) mg/dL Total Protein (6.3-8.2) g/dL Albumin (3.5-5.0) g/dL 11/18/17 11/18/17 11/18/17 Range/Units 07:56 07:56 11:38 RBC 3.29 L (3.80-5.40) m/uL Hgb 9.0 L (11.4-16.0) gm/dL Hct 28.6 L (34.0-46.0) % BUN 25 H (7-17) mg/dL Creatinine 2.04 H (0.52-1.04) mg/dL Glucose 117 H (74-99) mg/dL POC Glucose (mg/dL) 145 H (75-99) mg/dL Phosphorus 4.9 H (2.5-4.5) mg/dL Magnesium 1.2 L (1.6-2.3) mg/dL Total Protein 6.2 L (6.3-8.2) g/dL Albumin 3.2 L (3.5-5.0) g/dL Assessment and Plan Plan: Assessment and plan #1 hypertensive urgency #2 non-oliguric acute kidney injury, on top of a chronic kidney disease stage III #3 anemia #4 diabetes #5 hyperlipidemia #6 acute pulmonary edema, diastolic congestive heart failure acute on chronic. Plan From cardiology's perspective, we'll continue current medications. 10 you IV Lasix, continue to monitor intake and output along with daily weights and daily lytes BUN and creatinine. DNP note has been reviewed, I agree with a documented findings and plan of care. Patient was seen and examined.
[2017-11-18] MEDS ORDERED: AMIODARONE 200 MG TAB PO SCH (15:00)
--- NOTE | 2017-11-18 15:23 | ECHOF ---
Referral Reason:sob MEASUREMENTS -------- HEIGHT: 160.0 cm WEIGHT: 93.0 kg BP: IVSd: 1.3 cm (0.6 - 1.1) LVIDd: 3.6 cm (3.9 - 5.3) LVPWd: 1.3 cm (0.6 - 1.1) IVSs: 1.7 cm LVIDs: 2.0 cm LVPWs: 2.0 cm Ao Diam: 2.7 cm (2.0 - 3.7) AV Cusp: 1.6 cm (1.5 - 2.6) LA Diam: 3.9 cm (2.7 - 3.8) MV EXCURSION: 13.189 mm (> 18.000) MV EF SLOPE: 63 mm/s (70 - 150) EPSS: 0.2 cm MV E Tashi: 1.40 m/s MV DecT: 236 ms MV A Tashi: 0.91 m/s MV E/A Ratio: 1.55 AV maxP.24 mmHg AV meanP.21 mmHg RAP: 5.00 mmHg RVSP: 21.43 mmHg FINDINGS -------- Sinus rhythm. This was a technically difficult study with suboptimal views. The left ventricular size is normal. There is mild concentric left ventricular hypertrophy. Overa ll left ventricular systolic function is normal with, an EF between 55 - 60 %. The right ventricle is normal in size and function. The left atrium is normal in size. The right atrium is normal in size. Lumason used Peak/mean gradient across the Aortic Valve is 42.24mmHg / 25.21mmHg. Normally functioning bioprosth etic valve. Mild mitral regurgitation is present. Mild tricuspid regurgitation present. The right ventricular systolic pressure, as measured by Doppl er, is 21.43mmHg. Pulmonic valve appears structurally normal. The aortic root size is normal. The pericardium is normal. CONCLUSIONS -------- 1. Sinus rhythm. 2. This was a technically difficult study with suboptimal views. 3. The left ventricular size is normal. 4. There is mild concentric left ventricular hypertrophy. 5. Overall left ventricular systolic function is normal with, an EF between 55 - 60 %. 6. The right ventricle is normal in size and function. 7. The left atrium is normal in size. 8. The right atrium is normal in size. 9. Lumason used 10. Peak/mean gradient across the Aortic Valve is 42.24mmHg / 25.21mmHg. 11. Normally functioning bioprosthetic valve. 12. Mild mitral regurgitation is present. 13. Mild tricuspid regurgitation present. 14. The right ventricular systolic pressure, as measured by Doppler, is 21.43mmHg. 15. Pulmonic valve appears structurally normal. 16. The aortic root size is normal. 17. The pericardium is normal. RADIOLOGY SCHEDULER: Carissa Larson RDCS
[2017-11-18 16:07] LABS: Glucose,Whole Blood 172 mg/dL (75-99)
[2017-11-18 18:58] LABS: Hemoglobin A1C 6.6 % (4.0-6.0)
[2017-11-18 20:38] LABS: Glucose,Whole Blood 186 mg/dL (75-99)
[2017-11-18] MEDS: HYDROcodone/APAP 7.5-325MG 1 EACH TAB PO PRN (20:56)
[2017-11-18] MEDS: ATORVASTATIN 40 MG TAB PO SCH (20:58)
[2017-11-18] MEDS: MIRTAZAPINE 15 MG TAB PO SCH (20:59)
[2017-11-18] MEDS: MONTELUKAST 10 MG TAB PO SCH (21:00)
[2017-11-18] MEDS: INSULIN DETEMIR 100 UNIT/ML 10 ML VIAL SQ SCH (21:36)
[2017-11-18] MEDS: TRIAMCINOLONE ACET 0.1% OINTMENT 15 GM TUBE TOPICAL SCH (21:39)
--- NOTE | 2017-11-18 23:35 | PN ---
PROGRESS NOTE This 71-year-old white female with generalized weakness and malaise after stopping eating and drinking for 2 days for severe renal prerenal azotemia. She is much better today. Creatinine is 2.0. Echo was good. CARDIOVASCULAR: S1, S2. LUNGS: Clear. Sitting up in bed, more happy today. Vital signs reviewed. ASSESSMENT: 1. Prerenal azotemia. 2. Hypertension urgency. 3. History of chronic anemia on iron infusions. 4. Diabetes mellitus. 5. Dyslipidemia. 6. Diastolic heart failure. 7. Generalized edema starting back. I have started her on Lasix IV 40 q.12 hours, switched to oral. Possible discharge home in the next 24-48 hours. MMODL / IJN: [id number] /
[2017-11-19 06:18] LABS: Glucose,Whole Blood 100 mg/dL (75-99)
[2017-11-19] MEDS: INSULIN ASPART 100 UNIT/ML 1 ML 10 ML VIAL SQ SCH ×3 (06:40→18:04)
[2017-11-19] MEDS: PANTOPRAZOLE 40 MG TABLET PO SCH (06:41)
[2017-11-19] MEDS: LEVOTHYROXINE 50 MCG TAB PO SCH (06:41)
[2017-11-19 06:48] LABS: Basophils # (A) 0.1 k/uL (0-0.2); Basophils % (A) 1 %; Eosinophils # (A) 0.3 k/uL (0-0.7); Eosinophils % (A) 4 %; HCT 28.5 % (34.0-46.0); HGB 9.2 gm/dL (11.4-16.0); Lymphocytes # (A) 1.2 k/uL (1.0-4.8); Lymphocytes % (A) 14 %; MCH 27.7 pg (25.0-35.0); MCHC 32.3 g/dL (31.0-37.0); MCV 85.8 fL (80.0-100.0); Mean Platelet Volume 7.2; Monocytes # (A) 0.4 k/uL (0-1.0); Monocytes % (A) 5 %; Neutrophils # (A) 6.1 k/uL (1.3-7.7); Neutrophils % (A) 75 %; Platelet Count 262 k/uL (150-450); RBC 3.32 m/uL (3.80-5.40); RDW 15.2 % (11.5-15.5); WBC 8.1 k/uL (3.8-10.6)
[2017-11-19 07:22] LABS: Calcium 8.3 mg/dL (8.4-10.2); Magnesium 1.6 mg/dL (1.6-2.3); Potassium 3.6 mmol/L (3.5-5.1); Total Bilirubin 0.7 mg/dL (0.2-1.3); Total Protein 5.9 g/dL (6.3-8.2)
[2017-11-19 08:38] VITALS: RESP 16
--- NOTE | 2017-11-19 09:56 | P.PN ---
Subjective Patient is seen in follow-up for acute kidney injury and hyperkalemia. Patient has chronic kidney disease stage III with baseline creatinine 1.2 from June 2017. Etiology is diabetic kidney disease. Patient presented with mental status changes and poor oral intake. Creatinine was 5.56 on admission and has been gradually improving. It is down to 1.89 today. She is currently maintained on Lasix 40 mg IV twice daily. Potassium level now normal. Oral intake is improving. She has a Iglesias catheter in place. No vomiting or diarrhea. Denies chest pain or shortness of breath. I improving. Vital signs are stable. General: The patient appeared well nourished and normally developed. HEENT: Head exam is unremarkable. Neck is without jugular venous distension. LUNGS: Lungs are clear to auscultation and percussion. Breath sounds decreased. HEART: Rate and Rhythm are regular. First and second heart sounds normal. No murmurs, rubs or gallops. ABDOMEN: Abdominal exam reveals normal bowel sounds. Non-tender and non- distended. No evidence of peritonitis. EXTREMITITES: Trace edema. Left foot wound noted. No obvious drainage. Objective - Vital Signs Vital signs: Vital Signs Temp 98.0 F 11/19/17 08:24 Pulse 62 11/19/17 08:24 Resp 16 11/19/17 08:24 BP 142/65 11/19/17 08:24 Pulse Ox 96 11/19/17 08:24 Intake & Output 11/18/17 11/19/17 11/19/17 18:59 06:59 18:59 Intake Total 370 20 180 Output Total 1950 3150 Balance -1580 -3130 180 Weight 90.4 kg Intake: IV 10 20 Invasive Line 3 10 Invasive Line 4 20 Oral 360 180 Output: Urine 1950 3150 Other: Voiding Method Indwelling Catheter Indwelling Catheter Indwelling Catheter - Labs CBC & Chem 7: 11/19/17 06:14 11/19/17 06:14 Labs: Abnormal Lab Results - Last 24 Hours (Table) 11/18/17 11/18/17 11/18/17 Range/Units 07:56 11:38 15:55 RBC (3.80-5.40) m/uL Hgb (11.4-16.0) gm/dL Hct (34.0-46.0) % Carbon Dioxide (22-30) mmol/L BUN (7-17) mg/dL Creatinine (0.52-1.04) mg/dL POC Glucose (mg/dL) 145 H 172 H (75-99) mg/dL Hemoglobin A1c 6.6 H (4.0-6.0) % Calcium (8.4-10.2) mg/dL Total Protein (6.3-8.2) g/dL Albumin (3.5-5.0) g/dL 11/18/17 11/19/17 11/19/17 Range/Units 20:35 06:14 06:14 RBC 3.32 L (3.80-5.40) m/uL Hgb 9.2 L (11.4-16.0) gm/dL Hct 28.5 L (34.0-46.0) % Carbon Dioxide 34 H (22-30) mmol/L BUN 25 H (7-17) mg/dL Creatinine 1.89 H (0.52-1.04) mg/dL POC Glucose (mg/dL) 186 H (75-99) mg/dL Hemoglobin A1c (4.0-6.0) % Calcium 8.3 L (8.4-10.2) mg/dL Total Protein 5.9 L (6.3-8.2) g/dL Albumin 3.0 L (3.5-5.0) g/dL 11/19/17 Range/Units 06:17 RBC (3.80-5.40) m/uL Hgb (11.4-16.0) gm/dL Hct (34.0-46.0) % Carbon Dioxide (22-30) mmol/L BUN (7-17) mg/dL Creatinine (0.52-1.04) mg/dL POC Glucose (mg/dL) 100 H (75-99) mg/dL Hemoglobin A1c (4.0-6.0) % Calcium (8.4-10.2) mg/dL Total Protein (6.3-8.2) g/dL Albumin (3.5-5.0) g/dL Assessment and Plan Plan: Assessment: 1. Nonoliguric acute kidney injury mostly prerenal from poor oral intake and GUERITA inhibitor. Improved with IV hydration. Creatinine 1.89 today. It was 5.56 on admission. No evidence of hydronephrosis. She has a Iglesias catheter in place. 2. Hyperkalemia secondary to acute kidney injury, metabolic acidosis and use of GUERITA inhibitor. Improved with medical management. 3. Chronic kidney disease stage III with creatinine of 1.2 in June 2017. Etiology is diabetic kidney disease. 4. Anemia. Iron deficiency noted. 5. Diabetes mellitus. 6. Coronary artery disease status post cardiac cath in April 2017. 7. Metabolic acidosis secondary to acute kidney injury. Improved. 8. Hypertension with chronic kidney disease. Controlled. 9. Hyperphosphatemia secondary to acute kidney injury. Improving with improving renal function. 10. Hypomagnesemia secondary to diuresis. Improved post replacement. 11. Volume overload noted on chest x-ray. Plan: Decrease Lasix to 40 mg orally once daily. Encouraged oral intake. Avoid nephrotoxins. Discontinue oral bicarbonate. Ferrlecit 125 mg IV daily for 3 days. Third dose today. Repeat electrolytes in the morning. Replace magnesium. 2 g IV today.
[2017-11-19] MEDS ORDERED: FUROSEMIDE 40 MG TAB PO SCH (10:00)
[2017-11-19] MEDS: ASPIRIN 81 MG PO SCH (10:13)
[2017-11-19] MEDS: ATENOLOL 50 MG TAB PO SCH (10:14)
[2017-11-19] MEDS: CLOPIDOGREL 75 MG TAB PO SCH (10:15)
[2017-11-19] MEDS: HEPARIN SODIUM,PORCINE 5,000 UNIT/ML 1 ML VIAL SQ SCH (10:15)
[2017-11-19] MEDS: lamoTRIgine 25 MG TAB PO SCH (10:18)
[2017-11-19] MEDS: NIFEdipine XL 30 MG TAB.ER.24 PO SCH (10:19)
[2017-11-19] MEDS: TRIAMCINOLONE ACET 0.1% OINTMENT 15 GM TUBE TOPICAL SCH (10:20)
[2017-11-19] MEDS: SODIUM BICARBONATE TAB 650 MG TAB PO SCH (10:21)
[2017-11-19] MEDS: SODIUM FERRIC GLUCONAT-SUCROSE 125 MG in SODIUM CHLORIDE 0.9% 100 ML IVPB SCH (10:34)
[2017-11-19] MEDS: HYDROcodone/APAP 7.5-325MG 1 EACH TAB PO PRN (11:19)
[2017-11-19] MEDS: MAGNESIUM SULFATE-D5W PMX 1 GM in DEXTROSE/WATER 1 100ML.BAG IVPB SCH ×2 (11:47→13:06)
[2017-11-19 12:03] LABS: Glucose,Whole Blood 127 mg/dL (75-99)
[2017-11-19 12:06] VITALS: TEMP 98.1
--- NOTE | 2017-11-19 14:32 | P.PN ---
Subjective Progress Note Date: 11/19/17 This is a 71-year-old female was admitted to the hospital with symptoms of generalized malaise and fatigue associated with hyperkalemia and elevated BUN and creatinine, she was noted to be significantly hypertensive for which a cardiology consultation was requested. Patient was seen yesterday by Dr. Trujillo. Her blood pressure this morning is 126/50 with a heart rate in the 50s, temperature 98.3, 100% on 2 L of oxygen. White blood cell count 7.0, hemoglobin 9, platelet count 2:30. Sodium 143, potassium 5.7, BUN 40, creatinine 3.4. Magnesium. Level I.5. Echocardiogram with Doppler study has been performed and pending. 11/17/2017 Patient seen and examined this afternoon, extremely short of breath, using all accessory muscles to breathe, sitting up straight in bed at the time of my examination. Stat chest x-ray was requested, patient was also given 40 mg of IV Lasix and started on IV Lasix twice a day. Chest x-ray showed acute pulmonary edema. Blood pressure 134/76, heart rate in the 90s, respirations 30. NOn rebreather mask will be applied. Sodium 144, potassium 4.9, BUN 31, creatinine 2.4, magnesium 1.8. 11/18/2017 Patient was seen and examined this morning, breathi diuresed well on IV Lasix. ng is significantly improved today, she was sitting up in the chair at the time of my examination. Blood pressure 126/60 with a heart rate in the 60s, 97% on room air. Sodium 143, potassium 3.9, BUN 25, creatinine 2.0. Magnesium 1.2, BNP level 6360. 11/19/2017 seen and examined this morning, overall breathing is significantly improved. Currently on by mouth Lasix. Sodium 141, potassium 3.6, BUN 25, creatinine 1.8, magnesium 1.6. Objective - Vital Signs Vital signs: Vital Signs Temp 98.1 F 11/19/17 11:59 Pulse 54 L 11/19/17 11:59 Resp 16 11/19/17 11:59 BP 137/63 11/19/17 11:59 Pulse Ox 92 L 11/19/17 11:59 Intake & Output 11/18/17 11/19/17 11/19/17 18:59 06:59 18:59 Intake Total 370 20 540 Output Total 1949 3150 515 Balance -3450 -9104 25 Weight 90.4 kg Intake: IV 10 20 Invasive Line 3 10 Invasive Line 4 20 Oral 360 540 Output: Urine 1949 3150 515 Uretheral (Iglesias) 515 Other: Voiding Method Indwelling Catheter Indwelling Catheter Indwelling Catheter - Exam PHYSICAL EXAMINATION: GENERAL: 71-year-old female appears to be in respiratory distress at the time of my examination. HEENT: Head is atraumatic, normocephalic. Pupils equal, round. Sclera anicteric. Conjunctiva are clear. Mucous membranes of the mouth are moist. Neck is supple. There is elevated jugular venous pressure.] bruit is heard. HEART EXAMINATION: Heart S1, S2 normal. No murmur or gallop heard. CHEST EXAMINATION: Lungs reveal significant improvement, fine rales heard bilaterally today. ABDOMEN: Soft, nontender. Bowel sounds are heard. No organomegaly noted. EXTREMITIES: 2+ peripheral pulses with no evidence of peripheral edema and no calf tenderness noted. NEUROLOGIC patient is awake, alert and oriented ?-3. . - Labs CBC & Chem 7: 11/19/17 06:14 11/19/17 06:14 Labs: Abnormal Lab Results - Last 24 Hours (Table) 11/18/17 11/18/17 11/18/17 Range/Units 07:56 15:55 20:35 RBC (3.80-5.40) m/uL Hgb (11.4-16.0) gm/dL Hct (34.0-46.0) % Carbon Dioxide (22-30) mmol/L BUN (7-17) mg/dL Creatinine (0.52-1.04) mg/dL POC Glucose (mg/dL) 172 H 186 H (75-99) mg/dL Hemoglobin A1c 6.6 H (4.0-6.0) % Calcium (8.4-10.2) mg/dL Total Protein (6.3-8.2) g/dL Albumin (3.5-5.0) g/dL 11/19/17 11/19/17 11/19/17 Range/Units 06:14 06:14 06:17 RBC 3.32 L (3.80-5.40) m/uL Hgb 9.2 L (11.4-16.0) gm/dL Hct 28.5 L (34.0-46.0) % Carbon Dioxide 34 H (22-30) mmol/L BUN 25 H (7-17) mg/dL Creatinine 1.89 H (0.52-1.04) mg/dL POC Glucose (mg/dL) 100 H (75-99) mg/dL Hemoglobin A1c (4.0-6.0) % Calcium 8.3 L (8.4-10.2) mg/dL Total Protein 5.9 L (6.3-8.2) g/dL Albumin 3.0 L (3.5-5.0) g/dL 11/19/17 Range/Units 12:00 RBC (3.80-5.40) m/uL Hgb (11.4-16.0) gm/dL Hct (34.0-46.0) % Carbon Dioxide (22-30) mmol/L BUN (7-17) mg/dL Creatinine (0.52-1.04) mg/dL POC Glucose (mg/dL) 127 H (75-99) mg/dL Hemoglobin A1c (4.0-6.0) % Calcium (8.4-10.2) mg/dL Total Protein (6.3-8.2) g/dL Albumin (3.5-5.0) g/dL Assessment and Plan Plan: Assessment and plan #1 hypertensive urgency #2 non-oliguric acute kidney injury, on top of a chronic kidney disease stage III #3 anemia #4 diabetes #5 hyperlipidemia #6 acute pulmonary edema, diastolic congestive heart failure acute on chronic. Plan From cardiology's perspective, we'll continue current medications. IV Lasix has been discontinued and patient is currently on by mouth Lasix. We will replace her magnesium, discharge home in 24 hours if stable. DNP note has been reviewed, I agree with a documented findings and plan of care. Patient was seen and examined.
[2017-11-19] MEDS ORDERED: MAGNESIUM SULFATE-D5W PMX 1 GM in DEXTROSE/WATER 1 100ML.BAG IVPB SCH (15:00)
[2017-11-19 16:00] VITALS: BP 127/61; PULSE 55
[2017-11-19 17:31] LABS: Glucose,Whole Blood 154 mg/dL (75-99)
== END 2017-11-19 18:52 | disposition home or self-care (01) | DRG 682 ==
LOC: EC 20:25 → 6SEL 11-15 01:27
PROVIDERS: ADMIT Family Medicine; ATTEND Family Medicine
DX: N17.9 Acute kidney failure, unspecified (principal); G93.41 Metabolic encephalopathy; I50.33 Acute on chronic diastolic (congestive) heart failure; E87.2 Acidosis; I13.0 Hypertensive heart and chronic kidney disease with heart failure and stage 1 through stage 4 chronic kidney disease, or unspecified chronic kidney disease; E11.22 Type 2 diabetes mellitus with diabetic chronic kidney disease; D50.9 Iron deficiency anemia, unspecified; E66.01 Morbid (severe) obesity due to excess calories; Z68.35 Body mass index [BMI] 35.0-35.9, adult; E78.5 Hyperlipidemia, unspecified; E83.39 Other disorders of phosphorus metabolism; E83.42 Hypomagnesemia; E86.0 Dehydration; E87.5 Hyperkalemia; I16.0 Hypertensive urgency; I25.10 Atherosclerotic heart disease of native coronary artery without angina pectoris; I25.2 Old myocardial infarction; J44.9 Chronic obstructive pulmonary disease, unspecified; K21.9 Gastro-esophageal reflux disease without esophagitis; N18.3 Chronic kidney disease, stage 3 (moderate); T46.4X5A Adverse effect of angiotensin-converting-enzyme inhibitors, initial encounter; T50.2X5A Adverse effect of carbonic-anhydrase inhibitors, benzothiadiazides and other diuretics, initial encounter; Z66 Do not resuscitate; Z79.02 Long term (current) use of antithrombotics/antiplatelets; Z79.4 Long term (current) use of insulin; Z79.82 Long term (current) use of aspirin; Z80.51 Family history of malignant neoplasm of kidney; Z82.49 Family history of ischemic heart disease and other diseases of the circulatory system; Z90.710 Acquired absence of both cervix and uterus; Z95.1 Presence of aortocoronary bypass graft; Z95.2 Presence of prosthetic heart valve; Z95.5 Presence of coronary angioplasty implant and graft; Z79.890 Hormone replacement therapy; Z79.891 Long term (current) use of opiate analgesic; Z79.51 Long term (current) use of inhaled steroids; Z79.899 Other long term (current) drug therapy; Z88.0 Allergy status to penicillin
CPT/HCPCS: 36415; 51702; 71045; 76770; 80048; 80053; 81001; 82550; 82553; 82728; 83036; 83540; 83550; 83605; 83735; 83880; 84100; 84132; 84484; 85025; 85610; 85730; 93005; 93306; 94640; 94760; 96361; 96365; 96366; 96374; 96375; 99291

== ENCOUNTER → 2017-12-09 | Outpatient (CLI) | payer MEDICARE ==
[2017-12-09 13:45] LABS: Calcium 9.6 mg/dL (8.4-10.2); Potassium 4.9 mmol/L (3.5-5.1)
== END | disposition home or self-care (01) ==
LOC: LABWHC1 12:07
PROVIDERS: ATTEND Internal Medicine
DX: N18.3 Chronic kidney disease, stage 3 (moderate) (principal)
CPT/HCPCS: 36415; 80048

== ENCOUNTER → 2017-12-24 | Outpatient (CLI) | payer MEDICARE ==
[2017-12-24 10:26] LABS: Basophils # (A) 0.1 k/uL (0-0.2); Basophils % (A) 1 %; Eosinophils # (A) 0.4 k/uL (0-0.7); Eosinophils % (A) 4 %; HCT 31.9 % (34.0-46.0); HGB 10.6 gm/dL (11.4-16.0); Lymphocytes # (A) 1.4 k/uL (1.0-4.8); Lymphocytes % (A) 16 %; MCH 29.2 pg (25.0-35.0); MCHC 33.1 g/dL (31.0-37.0); MCV 88.1 fL (80.0-100.0); Mean Platelet Volume 7.5; Monocytes # (A) 0.5 k/uL (0-1.0); Monocytes % (A) 5 %; Neutrophils # (A) 6.2 k/uL (1.3-7.7); Neutrophils % (A) 72 %; Platelet Count 262 k/uL (150-450); RBC 3.63 m/uL (3.80-5.40); RDW 14.5 % (11.5-15.5); WBC 8.6 k/uL (3.8-10.6)
[2017-12-24 15:29] LABS: Parathyroid Hormone Intact 115.7 pg/mL (14.0-72.0)
[2017-12-24 15:57] LABS: Vitamin D 25 Hydroxy 18.3 ng/mL (30.0-100.0)
[2017-12-24 16:00] LABS: Iron Saturation 27.16 (12.00-45.00)
[2017-12-24 16:02] LABS: Albumin/Globulin Ratio 1.6 (1.20-2.10); Anion Gap 11.7 mmol/L (4.00-12.00); Carbon Dioxide 28.3 mmol/L (21.6-31.8); Globulin 2.5 g/dL (2.1-3.7); Magnesium 1.8 mg/dL (1.5-2.4); Phosphorus 4.3 mg/dL (2.4-5.1); Potassium 4.4 mmol/L (3.5-5.5); Total Bilirubin 0.3 mg/dL (0.3-1.2); Total Protein 6.5 g/dL (6.2-8.2); Uric Acid 13.4 mg/dL (2.9-7.7)
[2017-12-24 18:08] LABS: Creatinine,Urine Random 102.8 mg/dL
== END | disposition home or self-care (01) ==
LOC: LABWHC1 09:40
PROVIDERS: ATTEND Nurse Practitioner Family
DX: E21.3 Hyperparathyroidism, unspecified (principal); M10.9 Gout, unspecified; E55.9 Vitamin D deficiency, unspecified; R80.9 Proteinuria, unspecified; N17.9 Acute kidney failure, unspecified; N18.9 Chronic kidney disease, unspecified; D63.1 Anemia in chronic kidney disease; N39.0 Urinary tract infection, site not specified
CPT/HCPCS: 36415; 80053; 82306; 82570; 82728; 83540; 83550; 83735; 83970; 84100; 84156; 84550; 85025; 85027

== ENCOUNTER 2018-01-07 18:57 | Inpatient (IN) | payer MEDICARE ==
[2018-01-07] MEDS ORDERED: SODIUM CHLORIDE 0.9% 1,000 ML IV STA (19:24)
[2018-01-07] MEDS ORDERED: ACETAMINOPHEN TAB 500 MG TAB PO STA (19:25)
[2018-01-07] MEDS ORDERED: LEVOFLOXACIN 750MG-D5W PMX 750 MG in DEXTROSE/WATER 1 150ML.BAG IVPB STA (19:25)
[2018-01-07] MEDS ORDERED: IBUPROFEN 800 MG TAB PO STA (19:25)
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
[2018-01-07] MEDS ORDERED: LEVOFLOXACIN 750MG-D5W PMX 750 MG in DEXTROSE/WATER 1 150ML.BAG IVPB SCH (19:30)
[2018-01-07] MEDS ORDERED: SODIUM CHLORIDE 0.9% 500 ML 500 ML IV ONE (20:24)
--- NOTE | 2018-01-07 20:24 | XR ---
EXAMINATION TYPE: XR chest 2V DATE OF EXAM: 01/07/2018 COMPARISON: 11/17/2017 HISTORY: Chest pain TECHNIQUE: Frontal and lateral views of the chest are obtained. FINDINGS: There are sternal wires. There is coarsening of the lung markings. There is no gross heart failure. There is a pin from right shoulder surgery. There is some linear density at the left lung b ase. IMPRESSION: Subsegmental atelectasis or scarring in the left lower lobe. There is clearing of the co ngestive heart failure compared to last exam.
[2018-01-07 20:47] LABS: Calcium 9.5 mg/dL (8.4-10.2); Magnesium 1.6 mg/dL (1.6-2.3); Potassium 4.5 mmol/L (3.5-5.1); Total Bilirubin 0.7 mg/dL (0.2-1.3); Total Protein 7.4 g/dL (6.3-8.2)
[2018-01-07 20:52] LABS: Partial Thromboplastin Time 19.6 sec (22.0-30.0)
[2018-01-07 20:54] LABS: Basophils # (A) 0.1 k/uL (0-0.2); Basophils % (A) 0 %; Eosinophils # (A) 0.1 k/uL (0-0.7); Eosinophils % (A) 0 %; HCT 36.2 % (34.0-46.0); HGB 11.8 gm/dL (11.4-16.0); Lymphocytes # (A) 0.5 k/uL (1.0-4.8); Lymphocytes % (A) 3 %; MCH 29.3 pg (25.0-35.0); MCHC 32.7 g/dL (31.0-37.0); MCV 89.4 fL (80.0-100.0); Mean Platelet Volume 7.6; Monocytes # (A) 0.6 k/uL (0-1.0); Monocytes % (A) 3 %; Neutrophils # (A) 16.7 k/uL (1.3-7.7); Neutrophils % (A) 93 %; Platelet Count 255 k/uL (150-450); RBC 4.05 m/uL (3.80-5.40); RDW 14.9 % (11.5-15.5); WBC 17.9 k/uL (3.8-10.6)
[2018-01-07 21:02] LABS: Creatine Kinase MB 0.2 ng/mL (0.0-2.4); Troponin I 0.029 ng/mL (0.000-0.034)
[2018-01-07] MEDS ORDERED: PNEUMONIA PROTOCOL UTILIZED 1 EACH MISC PO PRN (21:25)
[2018-01-07] MEDS ORDERED: CEFEPIME 2 GM in SODIUM CHLORIDE 0.9% 50 ML IVPB STA (21:27)
[2018-01-07 21:55] LABS: Appearance,Urine Clear (Clear); Bilirubin,Urine Negative (Negative); Blood,Urine Negative (Negative); Color,Urine Light Yellow; Glucose,Urine (UA) 3+ (Negative); Ketones,Urine Negative (Negative); Leukocyte Esterase,Urine Negative (Negative); Nitrite,Urine Negative (Negative); PH, Urine 6.5 (5.0-8.0); Protein,Urine Negative (Negative); Specific Gravity,Urine 1.009 (1.001-1.035); Urobilinogen,Urine <2.0 mg/dL (<2.0)
[2018-01-07] MEDS ORDERED: MORPHINE SULFATE 4 MG/ML SYRINGE IVP PRN (22:51)
[2018-01-07] MEDS ORDERED: MORPHINE SULFATE 4 MG/ML SYRINGE IVP STA (22:51)
--- NOTE | 2018-01-07 23:32 | HP ---
HISTORY AND PHYSICAL CHIEF COMPLAINT: 72-year-old white female with disorientation, shortness of breath, cough, congestion, failed outpatient treatment, low oxygen in the high 80s to low 90s in my office, admitted to the hospital for asthma and COPD exacerbation. She has dehydration with prerenal renal failure. She has history of asthma, COPD, bipolar, insulin-dependent diabetes mellitus, depression, anxiety, dyslipidemia, hypertension. ALLERGIES: PENICILLIN. REVIEW OF SYSTEMS: Fourteen point review of systems negative except for mentioned in HPI. PAST HISTORY: Asthma, coronary artery disease, heart failure, COPD, diabetes mellitus, GERD, dyslipidemia, hypertension, renal disease. Surgeries of appendectomy, adenoidectomy, CABG, heart catheterization, hysterectomy, orthopedic surgery, tonsillectomy, left thoracentesis, CABG, aortic valve replacement, rotator cuff repair, Arianne fundoplication. SOCIAL HISTORY: No smoking. FAMILY HISTORY: Brother with coronary artery disease, CABG in 2004. Father with renal cancer. Mother with coronary artery disease. PHYSICAL EXAM: Temp 103, pulse is 91, respiratory 20 to 24, blood pressure 130 to 160s over 60s to 70s, O2 of 94% on room air. CARDIOVASCULAR: S1, S2. LUNGS: Scattered wheeze and rhonchi. HEMATOLOGY: Negative Colleen. PSYCH: Fair mood and affect. ASSESSMENT: 1. Asthma. 2. Chronic obstructive pulmonary disease exacerbation. 3. Tracheobronchitis. 4. Acute febrile illness. 5. Dehydration with prerenal renal failure. 6. Acute hypoxemic respiratory distress. 7. Leukocytosis secondary to pneumonia. 8. Elevated BNP, possibly some mild congestive heart failure. 9. Chronic kidney disease stage 3. 10.Acute renal failure. Await for renal physician, suspect it is all prerenal. For COPD, continue with steroids, updraft treatment, antibiotics. Please see further orders. MMODL / IJN: [id number] /
--- NOTE | 2018-01-07 23:44 | CT ---
EXAMINATION TYPE: CT abdomen pelvis wo con DATE OF EXAM: 01/07/2018 COMPARISON: None HISTORY: pain CT DLP: 623.9 mGycm Automated exposure control for dose reduction was used. TECHNIQUE: Helical acquisition of images was performed from the lung bases through the pelvis. FINDINGS: There is some patchy infiltrate at the lateral left lung base. There is mild pleural thickening. Hear t size is normal. There is no pericardial effusion. Stomach appears normal. Liver shows no focal defe ct. Spleen appears normal. There is no hepatic mass. The bile ducts are not dilated. Gallbladder is c ontracted. There is no adrenal mass. Kidneys have normal size and contour. There is no hydronephrosis. Ureters a re not dilated. There is no retroperitoneal adenopathy. Abdominal aorta is atheromatous. Bladder is a lmost empty. There is no inguinal hernia. There is no free fluid in the pelvis. There are a few enlar ged pelvic lymph nodes that measure up to 2 x 1 cm. There is no free fluid in the pelvis. There is hy sterectomy. There is no evidence of a bowel obstruction. I see no intestinal wall thickening. There i s no free air. There is no ascites. IMPRESSION: THERE IS SOME MILD PLEURAL THICKENING AND INFILTRATE IN ATELECTASIS AT THE LEFT LUNG BASE. NO ACUTE A BNORMALITY SEEN IN THE ABDOMEN AND PELVIS. NONSPECIFIC PELVIC LYMPH NODES.
[2018-01-08] MEDS: methylPREDNISolone SOD SUCCI 40 MG/ML 1 ML VIAL IV SCH ×4 (00:46→17:27)
--- NOTE | 2018-01-08 01:24 | US ---
EXAMINATION TYPE: US gallbladder DATE OF EXAM: 01/08/2018 COMPARISON: CT 2018 CLINICAL HISTORY: pain. Abdomen pain x 1 week EXAM MEASUREMENTS: Liver Length: 17.4 cm Gallbladder Wall: 0.2 cm CBD: 0.4 cm Right Kidney: 10.2 x 5.5 x 5.0 cm Difficult and limited study due to patient body habitus Pancreas: obscured by overlying midline bowel gas Liver: measures in upper limits of normal, mildly heterogeneous Gallbladder: appears slightly contracted, wnl as seen Evidence for sonographic Rose's sign: no CBD: wnl Right Kidney: wnl IMPRESSION: No gallstones or dilated ducts. No focal liver defect.
[2018-01-08] MEDS ORDERED: ACETAMINOPHEN TAB 325 MG TAB PO PRN (02:06)
[2018-01-08] MEDS ORDERED: NITROGLYCERIN SL TABS 0.4 MG TAB SUBLINGUAL PRN (02:10)
[2018-01-08 05:40] LABS: Basophils % (A) 0 %; Eosinophils # (A) 0.1 k/uL (0-0.7); Eosinophils % (A) 1 %; HCT 31.7 % (34.0-46.0); HGB 10.1 gm/dL (11.4-16.0); Hypochromasia Slight; Lymphocytes # (A) 0.5 k/uL (1.0-4.8); Lymphocytes % (A) 3 %; MCH 29.4 pg (25.0-35.0); MCHC 31.9 g/dL (31.0-37.0); MCV 92.2 fL (80.0-100.0); Mean Platelet Volume 7.4; Monocytes # (A) 0.3 k/uL (0-1.0); Monocytes % (A) 2 %; Neutrophils # (A) 16.4 k/uL (1.3-7.7); Neutrophils % (A) 94 %; Platelet Count 241 k/uL (150-450); RBC 3.44 m/uL (3.80-5.40); RDW 14.9 % (11.5-15.5); WBC 17.4 k/uL (3.8-10.6)
[2018-01-08] MEDS: LEVOTHYROXINE 50 MCG TAB PO SCH (06:01)
[2018-01-08 06:03] LABS: Albumin 3.3 g/dL (3.5-5.0); Calcium 8.6 mg/dL (8.4-10.2); Potassium 4.2 mmol/L (3.5-5.1); Total Bilirubin 0.6 mg/dL (0.2-1.3); Total Protein 6.4 g/dL (6.3-8.2)
[2018-01-08] MEDS: INSULIN ASPART 100 UNIT/ML 1 ML 10 ML VIAL SQ SCH ×4 (08:27→22:11)
[2018-01-08] MEDS ORDERED: MAGNESIUM HYDROXIDE 2,400 MG/10 ML CUP PO STA (08:30)
[2018-01-08] MEDS ORDERED: MAGNESIUM HYDROXIDE 2,400 MG/10 ML CUP PO PRN (08:30)
[2018-01-08] MEDS: IPRATROPIUM-ALBUTEROL 3 ML NEB INHALATION SCH ×4 (08:39→19:05)
[2018-01-08] MEDS ORDERED: LISINOPRIL 5 MG TAB PO SCH (09:00)
[2018-01-08] MEDS ORDERED: FUROSEMIDE 40 MG TAB PO SCH (09:00)
[2018-01-08] MEDS ORDERED: ENOXAPARIN 40 MG/0.4 ML SYRINGE SQ SCH (09:00)
--- NOTE | 2018-01-08 09:02 | XR ---
EXAMINATION TYPE: XR chest 2V DATE OF EXAM: 01/08/2018 COMPARISON: 01/07/2018 TECHNIQUE: PA and lateral views submitted. HISTORY: Pneumonia FINDINGS: Heart is enlarged and is postoperative change. Coarsened interstitium noted with chronic deformities of the rib cage. No pneumothorax. Diffuse osteopenia and arthropathy of the shoulders. Subsegmental c hanges at the left lung base with pleural thickening or tiny effusion are stable. Correlate for under lying COPD. IMPRESSION: 1. Subsegmental atelectasis or infiltrate left lung base with pleural thickening or effusion.
[2018-01-08] MEDS: ASPIRIN 81 MG PO SCH (09:46)
[2018-01-08] MEDS: CLOPIDOGREL 75 MG TAB PO SCH (09:47)
[2018-01-08] MEDS: lamoTRIgine 25 MG TAB PO SCH (09:48)
[2018-01-08] MEDS: NIFEdipine XL 30 MG TAB.ER.24 PO SCH (09:49)
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
[2018-01-08] MEDS: SODIUM CHLORIDE 0.9% 1,000 ML IV SCH ×2 (12:12→20:09)
[2018-01-08 12:19] LABS: Glucose,Whole Blood 472 mg/dL (75-99)
[2018-01-08] MEDS: TRIAMCINOLONE ACET 0.1% OINTMENT 15 GM TUBE TOPICAL SCH ×2 (12:21→20:09)
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
[2018-01-08 17:00] LABS: Glucose,Whole Blood 525 mg/dL (75-99)
[2018-01-08 17:04] LABS: Hemoglobin A1C 7.6 % (4.0-6.0)
[2018-01-08 17:38] LABS: Glucose,Whole Blood 525 mg/dL (75-99)
[2018-01-08] MEDS ORDERED: INSULIN ASPART 100 UNIT/ML 1 ML 10 ML VIAL SQ ONE (17:42)
[2018-01-08 18:10] LABS: Glucose,Whole Blood 495 mg/dL (75-99)
[2018-01-08 18:31] LABS: Glucose,Whole Blood 506 mg/dL (75-99)
[2018-01-08] MEDS: ATORVASTATIN 40 MG TAB PO SCH (20:08)
[2018-01-08] MEDS: INSULIN DETEMIR 100 UNIT/ML 10 ML VIAL SQ SCH (20:08)
[2018-01-08] MEDS: MIRTAZAPINE 15 MG TAB PO SCH (20:09)
[2018-01-08] MEDS: MONTELUKAST 10 MG TAB PO SCH (20:09)
[2018-01-08] MEDS: HYDROcodone/APAP 7.5-325MG 1 EACH TAB PO PRN (20:12)
[2018-01-08 20:31] LABS: Glucose,Whole Blood 458 mg/dL (75-99)
[2018-01-08] MEDS ORDERED: INSULIN DETEMIR 100 UNIT/ML 10 ML VIAL SQ SCH (21:00)
[2018-01-08 21:54] LABS: Glucose,Whole Blood 442 mg/dL (75-99)
[2018-01-09 00:17] LABS: Glucose,Whole Blood 353 mg/dL (75-99)
[2018-01-09] MEDS: LEVOTHYROXINE 50 MCG TAB PO SCH (05:42)
[2018-01-09 07:06] LABS: Glucose,Whole Blood 334 mg/dL (75-99)
[2018-01-09] MEDS: IPRATROPIUM-ALBUTEROL 3 ML NEB INHALATION SCH ×4 (07:30→19:06)
[2018-01-09 07:55] LABS: Calcium 8.7 mg/dL (8.4-10.2)
--- NOTE | 2018-01-09 07:55 | PN ---
PROGRESS NOTE SUBJECTIVE: This is a white female, improving with breathing. Complaint of constipation, abdominal pain, which is treated. Medicines were ordered. Her breathing is improving. CARDIOVASCULAR: S1, S2. LUNGS: Clear. GI: Soft. HEMATOLOGY: Negative Homans. PSYCH: Fair mood and affect. ASSESSMENT: 1. Community-acquired pneumonia. 2. Chronic obstructive pulmonary disease exacerbation. 3. Acute hypoxemic respiratory distress. 4. Diabetes mellitus. 5. Hypothyroidism. 6. Obesity. Please see further orders. IV steroids, updraft treatments, diabetic control with Accu- Chek protocol. IV antibiotics. MMODL / IJN: [id number] /
[2018-01-09] MEDS: INSULIN ASPART 100 UNIT/ML 1 ML 10 ML VIAL SQ SCH ×4 (08:05→21:37)
[2018-01-09] MEDS: TRIAMCINOLONE ACET 0.1% OINTMENT 15 GM TUBE TOPICAL SCH ×2 (08:07→21:38)
[2018-01-09] MEDS: NIFEdipine XL 30 MG TAB.ER.24 PO SCH (08:08)
[2018-01-09] MEDS: CLOPIDOGREL 75 MG TAB PO SCH (08:08)
[2018-01-09] MEDS: ENOXAPARIN 30 MG/0.3 ML SYRINGE SQ SCH (08:08)
[2018-01-09] MEDS: lamoTRIgine 25 MG TAB PO SCH (08:08)
[2018-01-09] MEDS: ASPIRIN 81 MG PO SCH (08:09)
[2018-01-09] MEDS: methylPREDNISolone SOD SUCCI 40 MG/ML 1 ML VIAL IV SCH (08:09)
[2018-01-09 11:51] LABS: Glucose,Whole Blood 375 mg/dL (75-99)
--- NOTE | 2018-01-09 12:26 | P.PN ---
Subjective Progress Note Date: 01/09/18 Principal diagnosis: This is a 72-year-old female seen in consultation because of acute kidney injury and chronic kidney disease who presented with dyspnea and was also confused was found to have pneumonia. She was febrile. She has improved subjectively. Denies any cough fever chills nausea vomiting diarrhea shortness of breath abdominal pain She has chronic kidney disease with a baseline creatinine of about 1.3. Creatinine has gone up from 1.5-1.9 and is down to 1.8 now. She is known with coronary artery disease COPD diabetes Objective - Vital Signs Vital signs: Vital Signs Temp 97.7 F 01/09/18 05:51 Pulse 78 01/09/18 11:40 Resp 16 01/09/18 08:00 BP 117/58 01/09/18 05:51 Pulse Ox 93 L 01/09/18 05:51 Intake & Output 01/08/18 01/09/18 01/09/18 18:59 06:59 18:59 Intake Total 1999 Balance 1999 Weight 83.915 kg 83.915 kg Intake: Intake, IV Titration 800 Amount Sodium Chloride 0.9% 1, 800 000 ml @ 50 mls/hr IV . Q20H [id number] Rx#:[id number] Oral 1200 Other: Voiding Method Toilet Toilet Toilet # Voids 3 1 1 # Bowel Movements 1 On examination she is awake alert oriented comfortable HEENT exam no JVP neck is supple no facial asymmetry Lungs are clear to auscultation Auscultation with some occasional crackle at the left base. Heart sounds are unremarkable for any murmur rub gallop Abdomen soft nontender no masses felt Extremity exam was no Neurologically awake alert oriented - Labs CBC & Chem 7: 01/08/18 05:24 01/09/18 06:55 Labs: Abnormal Lab Results - Last 24 Hours (Table) 01/08/18 01/08/18 01/08/18 Range/Units 05:24 16:59 17:36 BUN (7-17) mg/dL Creatinine (0.52-1.04) mg/dL Glucose (74-99) mg/dL POC Glucose (mg/dL) 525 H 525 H (75-99) mg/dL Hemoglobin A1c 7.6 H (4.0-6.0) % 01/08/18 01/08/18 01/08/18 Range/Units 18:09 18:30 20:30 BUN (7-17) mg/dL Creatinine (0.52-1.04) mg/dL Glucose (74-99) mg/dL POC Glucose (mg/dL) 495 H 506 H 458 H (75-99) mg/dL Hemoglobin A1c (4.0-6.0) % 01/08/18 01/09/18 01/09/18 Range/Units 21:53 00:16 06:55 BUN 33 H (7-17) mg/dL Creatinine 1.89 H (0.52-1.04) mg/dL Glucose 314 H (74-99) mg/dL POC Glucose (mg/dL) 442 H 353 H (75-99) mg/dL Hemoglobin A1c (4.0-6.0) % 01/09/18 01/09/18 Range/Units 07:04 11:44 BUN (7-17) mg/dL Creatinine (0.52-1.04) mg/dL Glucose (74-99) mg/dL POC Glucose (mg/dL) 334 H 375 H (75-99) mg/dL Hemoglobin A1c (4.0-6.0) % Microbiology - Last 24 Hours (Table) 01/07/18 19:47 Blood Culture Gram Stain - Preliminary Blood 01/07/18 19:47 Blood Culture - Final Blood Assessment and Plan Assessment: Impression 1. Acute kidney injury from pneumonia. Patent peaked at 1.9 and is down to 1.8 this morning 2. Chronic kidney disease creatinine is 1.1-1.3, nephrosclerosis. Kidneys are normal size by computed tomography scan 3. Pneumonia left base with computed tomography scan showing mild pleural thickening and infiltrate 4. Blood pressure at target 5. Diabetes mellitus. Recommendation. Maintain current medications and IV fluids, 50 mL per hour. Monitor labs
[2018-01-09] MEDS: SODIUM CHLORIDE 0.9% 1,000 ML IV SCH (13:04)
--- NOTE | 2018-01-09 13:56 | P.PN ---
Subjective Progress Note Date: 01/09/18 Principal diagnosis: Acute exacerbation of chronic obstructive pulmonary disease and the diastolic congestive heart failure. This is a 72-year-old white female patient of Dr. Aguirre percent emergency department for evaluation of weakness, shortness of breath, cough and not feeling well. Patient had a similar prior hospitalization, and she had significant renal failure. Family was concerned about altered mental status. Patient was complaining of some generalized aching, she's had a recent upper respiratory infection. Patient is a poor historian, and most of the history is obtained from the chart. Patient denied any fever or chills at home, however in the emergency department she was found to be febrile temp of 103.1F. Chest x-ray showed subsegmental atelectasis or scarring in the left lower lobe, chest x-ray actually showed clearing of the congestive heart failure changes compared to the previous exam on 11/17/2017. EGD showed normal sinus rhythm. Lab work showed that he be seen 17.9, hemoglobin of 11.8, electrolytes were within normal limits, BUN was 23, creatinine was 1.58. Renal profile was actually improved from previous blood work on 12/24/2017. Lactic acid was elevated at 3.9, patient was given 1 L of IV fluid bolus of 0.9 normal saline, and her maintenance IV fluids are 0.9 normal saline at a rate of 100 ML per hour. Cultures were collected and sent, pending at this time, patient is not producing any sputum. Abdomen/pelvis CT was completed, and showed patchy infiltrate at the lateral left lung base, no acute abnormality was seen within the abdomen and pelvis. There were nonspecific pelvic lymph nodes. Patient's past medical history includes asthma, patient is a lifetime nonsmoker, CAD with history of three-vessel bypass, heart failure, valvular heart disease with history of aortic valve replacement, diabetes mellitus, GERD/reflux, hypertension, hyperlipidemia and chronic kidney disease stage III. Gallbladder ultrasound showed no gallstones or dilated ducts. Patient was even a dose of cefepime, which was later switched to Levaquin. The patient is seen again today 01/09/2018 in follow-up on the regular medical floor. She is currently awake and alert in no acute distress. Resting quite comfortably in bed. She is breathing quite a bit better today as compared to yesterday. She is maintaining good O2 saturations in the 90s on room air. She' s been afebrile. Hemodynamically stable. She has been maintained on bronchodilators, IV Solu-Medrol. She is on antibiotics in the form of Levaquin. Objective - Vital Signs Vital signs: Vital Signs Temp 97.7 F 01/09/18 05:51 Pulse 78 01/09/18 11:40 Resp 16 01/09/18 08:00 BP 117/58 01/09/18 05:51 Pulse Ox 93 L 01/09/18 05:51 Intake & Output 01/08/18 01/09/18 01/09/18 18:59 06:59 18:59 Intake Total 1999 Balance 1999 Weight 83.915 kg 83.915 kg Intake: Intake, IV Titration 800 Amount Sodium Chloride 0.9% 1, 800 000 ml @ 50 mls/hr IV . Q20H [facility] Rx#:[id number] Oral 1200 Other: Voiding Method Toilet Toilet Toilet # Voids 3 1 1 # Bowel Movements 1 - Exam GENERAL EXAM: Alert, pleasant 72-year-old white female patient, comfortable in no apparent distress. HEAD: Normocephalic/atraumatic. EYES: Normal reaction of pupils, equal size. Conjunctiva pink, sclera white. NOSE: Clear with pink turbinates. THROAT: No erythema or exudates. NECK: No masses, no JVD, no thyroid enlargement, no adenopathy. CHEST: No chest wall deformity. Symmetrical expansion. LUNGS: Equal air entry with no crackles, wheeze, rhonchi or dullness. Some diminished breath sounds over left posterior lower lobe CVS: Regular rate and rhythm, normal S1 and S2, no gallops, no murmurs, no rubs ABDOMEN: Soft, nontender. No hepatosplenomegaly, normal bowel sounds, no guarding or rigidity. EXTREMITIES: No clubbing, mild lower extremity edema, no cyanosis, 2+ pulses and upper and lower extremities. MUSCULOSKELETAL: Muscle strength and tone normal. SPINE: No scoliosis or deformity SKIN: No rashes CENTRAL NERVOUS SYSTEM: Alert and oriented -3. No focal deficits, tone is normal in all 4 extremities. PSYCHIATRIC: Alert and oriented -3. Appropriate affect. Intact judgment and insight. - Labs CBC & Chem 7: 01/08/18 05:24 01/09/18 06:55 Labs: Abnormal Lab Results - Last 24 Hours (Table) 01/08/18 01/08/18 01/08/18 Range/Units 05:24 16:59 17:36 BUN (7-17) mg/dL Creatinine (0.52-1.04) mg/dL Glucose (74-99) mg/dL POC Glucose (mg/dL) 525 H 525 H (75-99) mg/dL Hemoglobin A1c 7.6 H (4.0-6.0) % 01/08/18 01/08/18 01/08/18 Range/Units 18:09 18:30 20:30 BUN (7-17) mg/dL Creatinine (0.52-1.04) mg/dL Glucose (74-99) mg/dL POC Glucose (mg/dL) 495 H 506 H 458 H (75-99) mg/dL Hemoglobin A1c (4.0-6.0) % 01/08/18 01/09/18 01/09/18 Range/Units 21:53 00:16 06:55 BUN 33 H (7-17) mg/dL Creatinine 1.89 H (0.52-1.04) mg/dL Glucose 314 H (74-99) mg/dL POC Glucose (mg/dL) 442 H 353 H (75-99) mg/dL Hemoglobin A1c (4.0-6.0) % 01/09/18 01/09/18 Range/Units 07:04 11:44 BUN (7-17) mg/dL Creatinine (0.52-1.04) mg/dL Glucose (74-99) mg/dL POC Glucose (mg/dL) 334 H 375 H (75-99) mg/dL Hemoglobin A1c (4.0-6.0) % Microbiology - Last 24 Hours (Table) 01/07/18 19:47 Blood Culture Gram Stain - Preliminary Blood 01/07/18 19:47 Blood Culture - Final Blood Assessment and Plan Assessment: Assessment: #1. Acute febrile illness, shortness of breath, chest x-ray showed a limited infiltrate/atelectasis in the left lower lobe. Possibility of pneumonia is not excluded, although the chest x-ray and the abdomen/pelvis CT findings not very impressive #2. Leukocytosis #3. Lactic acidosis, improved with IV fluids #4. Possible mild congestive heart failure, with previously documented diastolic dysfunction with an EF between 55-60% #5. History of chronic bronchial asthma #6. Chronic kidney disease, stage III #7. History of coronary artery disease, with previous bypass grafting and aortic valve replacement #8. Hypertension, hyperlipidemia #9. Diabetes mellitus #10. GERD/reflux Plan: The patient was seen and evaluated by Dr. Quiroz. She is stable from the pulmonary standpoint. She could be discharged home on a course of prednisone burst and taper, course of antibiotics, continue Singulair and bronchodilators. Follow-up in our office in 1-2 weeks' time. I, the cosigning physician, performed a history & physical examination of the patient. Lungs sounds are clear. Maintaining good O2 saturations in the 90s on room air. I discussed the assessment and plan of care with my nurse practitioner, Zoe George. I attest to the above note as dictated by her.
[2018-01-09 17:11] LABS: Glucose,Whole Blood 444 mg/dL (75-99)
[2018-01-09] MEDS ORDERED: VANCOMYCIN IV PER PHARMACY 1 EACH MISC MISCELLANE PRN (17:23)
[2018-01-09] MEDS ORDERED: INSULIN ASPART 100 UNIT/ML 1 ML 10 ML VIAL SQ ONE ×2 (17:24→20:16)
[2018-01-09] MEDS ORDERED: VANCOMYCIN 1,500 MG in SODIUM CHLORIDE 0.9% 250 ML IVPB ONE (18:00)
[2018-01-09] MEDS ORDERED: LEVOFLOXACIN 750MG-D5W PMX 750 MG in DEXTROSE/WATER 1 150ML.BAG IVPB SCH (20:00)
[2018-01-09 20:09] LABS: Glucose,Whole Blood 450 mg/dL (75-99)
[2018-01-09] MEDS: HYDROcodone/APAP 7.5-325MG 1 EACH TAB PO PRN (21:35)
[2018-01-09] MEDS: INSULIN DETEMIR 100 UNIT/ML 10 ML VIAL SQ SCH (21:37)
[2018-01-09] MEDS: ATORVASTATIN 40 MG TAB PO SCH (21:37)
[2018-01-09] MEDS: MIRTAZAPINE 15 MG TAB PO SCH (21:37)
[2018-01-09] MEDS: MONTELUKAST 10 MG TAB PO SCH (21:37)
[2018-01-10] MEDS: LEVOTHYROXINE 50 MCG TAB PO SCH (05:58)
[2018-01-10] MEDS ORDERED: VANCOMYCIN 1,500 MG in SODIUM CHLORIDE 0.9% 250 ML IVPB ONE (06:00)
[2018-01-10 06:57] LABS: Glucose,Whole Blood 164 mg/dL (75-99)
[2018-01-10] MEDS: predniSONE 20 MG TAB PO SCH (08:08)
[2018-01-10] MEDS: ENOXAPARIN 30 MG/0.3 ML SYRINGE SQ SCH (08:08)
[2018-01-10] MEDS: lamoTRIgine 25 MG TAB PO SCH (08:08)
[2018-01-10] MEDS: CLOPIDOGREL 75 MG TAB PO SCH (08:08)
[2018-01-10] MEDS: NIFEdipine XL 30 MG TAB.ER.24 PO SCH (08:08)
[2018-01-10] MEDS: ASPIRIN 81 MG PO SCH (08:08)
[2018-01-10] MEDS: IPRATROPIUM-ALBUTEROL 3 ML NEB INHALATION SCH ×4 (08:09→20:23)
[2018-01-10] MEDS: INSULIN ASPART 100 UNIT/ML 1 ML 10 ML VIAL SQ SCH ×4 (08:10→21:18)
[2018-01-10] MEDS: TRIAMCINOLONE ACET 0.1% OINTMENT 15 GM TUBE TOPICAL SCH (08:14)
[2018-01-10 08:23] LABS: Basophils % (A) 0 %; Eosinophils % (A) 0 %; HCT 29.3 % (34.0-46.0); HGB 9.5 gm/dL (11.4-16.0); Lymphocytes # (A) 1.1 k/uL (1.0-4.8); Lymphocytes % (A) 6 %; MCH 29.3 pg (25.0-35.0); MCHC 32.4 g/dL (31.0-37.0); MCV 90.3 fL (80.0-100.0); Mean Platelet Volume 7.1; Monocytes # (A) 0.7 k/uL (0-1.0); Monocytes % (A) 4 %; Neutrophils # (A) 16.3 k/uL (1.3-7.7); Neutrophils % (A) 89 %; Platelet Count 287 k/uL (150-450); RBC 3.24 m/uL (3.80-5.40); RDW 15.2 % (11.5-15.5); WBC 18.2 k/uL (3.8-10.6)
[2018-01-10 08:24] LABS: Albumin 2.9 g/dL (3.5-5.0); Calcium 8.5 mg/dL (8.4-10.2); Potassium 3.7 mmol/L (3.5-5.1); Total Bilirubin 0.2 mg/dL (0.2-1.3); Total Protein 5.8 g/dL (6.3-8.2)
[2018-01-10] MEDS: methylPREDNISolone SOD SUCCI 40 MG/ML 1 ML VIAL IV SCH (10:13)
--- NOTE | 2018-01-10 10:29 | PN ---
PROGRESS NOTE The patient came in the hospital, weakness, shortness of breath, anxiety. She appears to be improving. Abdominal pain is improving. Steroids were decreased due to severe hyperglycemia. Some regular insulin was given. She states she is breathing better. O2 93%. Blood pressure 117/58, respiratory 16-20, pulse 78, temp 97.7. LUNGS: Clear. CARDIOVASCULAR: S1, S2. GI: Soft. HEMATOLOGY: Negative Homans. PSYCH: Fair mood and affect. LABS: Reviewed. ASSESSMENT: 1. Lactic acidosis is improving. 2. Dehydration, improving. 3. Community-acquired pneumonia. 4. Asthma/chronic obstructive pulmonary disease exacerbation. 5. Mild congestive heart failure, diastolic in nature. 6. Chronic kidney disease stage III. 7. Diabetes mellitus. 8. Gastroesophageal reflux disease. 9. Hypertension. Possible discharge home on steroids. Possible discharge home in the morning. MMODL / IJN: [id number] /
[2018-01-10 10:55] LABS: Glucose,Whole Blood 288 mg/dL (75-99)
--- NOTE | 2018-01-10 12:38 | P.PN ---
Subjective Progress Note Date: 01/10/18 Principal diagnosis: This is a 72-year-old female seen in consultation because of acute kidney injury and chronic kidney disease who presented with dyspnea and was also confused was found to have pneumonia. She was febrile. She has improved subjectively. Denies any cough fever chills nausea vomiting diarrhea shortness of breath abdominal pain She has chronic kidney disease with a baseline creatinine of about 1.3. She does have a band of cellulitis on her left ankle for a few weeks. His red and there is fair amount of edema more on the left than on the right Creatinine has gone up from 1.5-1.9 and is down to 1.8 yesterday . She is known with coronary artery disease COPD diabetes Objective - Vital Signs Vital signs: Vital Signs Temp 98.2 F 01/10/18 05:38 Pulse 73 01/10/18 12:03 Resp 16 01/10/18 08:00 BP 113/57 01/10/18 05:38 Pulse Ox 93 L 01/10/18 05:38 Intake & Output 01/09/18 01/10/18 01/10/18 18:59 06:59 18:59 Intake Total 2500 Balance 2500 Intake: Intake, IV Titration 1300 Amount Sodium Chloride 0.9% 1, 800 000 ml @ 50 mls/hr IV . Q20H [facility] Rx#:[id number] Vancomycin 1,500 mg In 500 Sodium Chloride 0.9% 250 ml @ 125 mls/hr IVPB ONCE ONE Rx#:[id number] Oral 1200 Other: Voiding Method Toilet Toilet Toilet # Voids 1 1 On examination she is awake alert oriented HEENT exam no JVP neck is supple no facial asymmetry Lungs are clear to auscultation good air entry bilaterally Heart sounds are unremarkable for any murmur rub gallop Abdomen soft nontender no masses felt Extremity exam reveals and of redness and erythema on the left ankle. She has edema 1-2+ more on the left than on the right. Neurologically awake alert oriented. - Labs CBC & Chem 7: 01/10/18 07:33 01/10/18 07:33 Labs: Abnormal Lab Results - Last 24 Hours (Table) 01/09/18 01/09/18 01/10/18 Range/Units 16:55 20:08 06:54 WBC (3.8-10.6) k/uL RBC (3.80-5.40) m/uL Hgb (11.4-16.0) gm/dL Hct (34.0-46.0) % Neutrophils # (1.3-7.7) k/uL BUN (7-17) mg/dL Creatinine (0.52-1.04) mg/dL Glucose (74-99) mg/dL POC Glucose (mg/dL) 444 H 450 H 164 H (75-99) mg/dL Total Protein (6.3-8.2) g/dL Albumin (3.5-5.0) g/dL 01/10/18 01/10/18 01/10/18 Range/Units 07:33 07:33 10:53 WBC 18.2 H (3.8-10.6) k/uL RBC 3.24 L (3.80-5.40) m/uL Hgb 9.5 L (11.4-16.0) gm/dL Hct 29.3 L (34.0-46.0) % Neutrophils # 16.3 H (1.3-7.7) k/uL BUN 29 H (7-17) mg/dL Creatinine 1.56 H (0.52-1.04) mg/dL Glucose 148 H (74-99) mg/dL POC Glucose (mg/dL) 288 H (75-99) mg/dL Total Protein 5.8 L (6.3-8.2) g/dL Albumin 2.9 L (3.5-5.0) g/dL Microbiology - Last 24 Hours (Table) 01/07/18 19:47 Blood Culture Gram Stain - Preliminary Blood Blood Culture - Preliminary Coagulase Negative Staph Assessment and Plan Assessment: Impression 1. Acute kidney injury from pneumonia. Patent peaked at 1.9 and is down to 1.8 , to 1.56 this morning 2. Chronic kidney disease creatinine is 1.1-1.3, nephrosclerosis. Kidneys are normal size by computed tomography scan 3. Pneumonia left base with computed tomography scan showing mild pleural thickening and infiltrate 4. Blood pressure at target 5. Diabetes mellitus. 6. Anemia of chronic kidney disease hemoglobin is 9.5. 7. Possible bacteremia, 1 blood culture is positive for called is negative staph Recommendation. 1. Maintain antibiotics, she is on vancomycin watch her renal function keep the trough levels less than 15. 2. Repeat blood cultures to make sure this is not a contaminant. 3. Watch the cellulitis in her left ankle. 4. Maintain current medications and IV fluids, 50 mL per hour. 5. Monitor labs 6. Check iron saturation may need iron replaced if low less than 20% saturation
--- NOTE | 2018-01-10 15:16 | P.PN ---
Subjective Progress Note Date: 01/10/18 Principal diagnosis: COPD exacerbation, shortness of breath Progress note dated 01/10/2018 72-year-old female seen in consultation at couple days ago with an acute febrile illness and possible pneumonia left lower lobe. The patient is doing better from our perspective we thought she might be discharged. There may be other reasons keeping her here. From the pulmonary standpoint today, she is feeling much better. Much less short of breath. She does have a dry nonproductive cough. No fever or chills. No wheezing. Not coughing up any blood. The patient denies any chest pain or chest discomfort. In addition, she was admitted with a mild lactic acidosis which improved with fluids, mild diastolic heart failure, chronic bronchial asthma, stage III chronic kidney disease, history of bypass grafting with aortic valve replacement, hypertension , hyperlipidemia, diabetes mellitus, and gastroesophageal reflux disease. She did have a gallbladder ultrasound which was essentially unremarkable. Objective - Vital Signs Vital signs: Vital Signs Temp 98.0 F 01/10/18 11:58 Pulse 73 01/10/18 12:03 Resp 18 01/10/18 11:58 BP 148/67 01/10/18 11:58 Pulse Ox 100 01/10/18 11:58 Intake & Output 01/09/18 01/10/18 01/10/18 18:59 06:59 18:59 Intake Total 2500 Balance 2500 Intake: Intake, IV Titration 1300 Amount Sodium Chloride 0.9% 1, 800 000 ml @ 50 mls/hr IV . Q20H [facility] Rx#:[id number] Vancomycin 1,500 mg In 500 Sodium Chloride 0.9% 250 ml @ 125 mls/hr IVPB ONCE ONE Rx#:[id number] Oral 1200 Other: Voiding Method Toilet Toilet Toilet # Voids 1 1 - Exam No acute distress, oriented 3. No respiratory distress or difficulty. HEENT examination is grossly unremarkable. Mucous membranes are moist. No oral lesions. Neck supple. Full range of motion. No adenopathy thyromegaly or neck vein distention. Cardiovascular examination reveals regular rhythm rate. S1-S2 normal. No S3 or S4. No discernible murmur noted. Lungs reveal mostly clear breath sounds. A few scattered rhonchi are noted. A few scattered crackles are appreciated as well. There is no wheezes. Breath sounds equal bilaterally. Abdomen soft bowel sounds are heard. No masses or tenderness. Extremities are intact. No cyanosis clubbing or edema. Skin is without rash or lesion. Neurologic examination is brief but nonfocal. - Labs CBC & Chem 7: 01/10/18 07:33 01/10/18 07:33 Labs: Abnormal Lab Results - Last 24 Hours (Table) 01/09/18 01/09/18 01/10/18 Range/Units 16:55 20:08 06:54 WBC (3.8-10.6) k/uL RBC (3.80-5.40) m/uL Hgb (11.4-16.0) gm/dL Hct (34.0-46.0) % Neutrophils # (1.3-7.7) k/uL BUN (7-17) mg/dL Creatinine (0.52-1.04) mg/dL Glucose (74-99) mg/dL POC Glucose (mg/dL) 444 H 450 H 164 H (75-99) mg/dL Total Protein (6.3-8.2) g/dL Albumin (3.5-5.0) g/dL 01/10/18 01/10/18 01/10/18 Range/Units 07:33 07:33 10:53 WBC 18.2 H (3.8-10.6) k/uL RBC 3.24 L (3.80-5.40) m/uL Hgb 9.5 L (11.4-16.0) gm/dL Hct 29.3 L (34.0-46.0) % Neutrophils # 16.3 H (1.3-7.7) k/uL BUN 29 H (7-17) mg/dL Creatinine 1.56 H (0.52-1.04) mg/dL Glucose 148 H (74-99) mg/dL POC Glucose (mg/dL) 288 H (75-99) mg/dL Total Protein 5.8 L (6.3-8.2) g/dL Albumin 2.9 L (3.5-5.0) g/dL Microbiology - Last 24 Hours (Table) 01/07/18 19:47 Blood Culture Gram Stain - Preliminary Blood Blood Culture - Preliminary Coagulase Negative Staph Assessment and Plan Assessment: Assessment Limited left lower lobe pneumonia versus tracheobronchitis, improved Mild diastolic congestive heart failure exacerbation History of chronic bronchial asthma, mildly active Lactic acidemia, resolved Stage III chronic kidney disease History of previous bypass grafting and aortic valve replacement History of hypertension History of hyperlipidemia History of diabetes mellitus History of GERD Plan: Plan dated 01/10/2018 The patient's respiratory status is stable. She could be discharged home on some antibiotics and a short course of corticosteroids. Her white count today is 18.2 which may reflect the steroids that she has been receiving, hemoglobin 9.5 hematocrit 29.3 and platelet count 287,000. Sodium potassium chloride CO2 are all normal. Anion gap is normal. BUN is 29 with a creatinine of 1.56. Nephrology has seen the patient. Blood cultures from the eighth show coag- negative staph which may be a contaminant. Currently, she is on Levaquin and vancomycin as well as oral prednisone. We will continue to follow. Time with Patient: Less than 30
[2018-01-10 17:08] LABS: Glucose,Whole Blood 403 mg/dL (75-99)
[2018-01-10] MEDS ORDERED: INSULIN ASPART 100 UNIT/ML 1 ML 10 ML VIAL SQ ONE (18:11)
[2018-01-10 21:12] LABS: Glucose,Whole Blood 369 mg/dL (75-99)
[2018-01-10] MEDS: ATORVASTATIN 40 MG TAB PO SCH (21:17)
[2018-01-10] MEDS: MONTELUKAST 10 MG TAB PO SCH (21:17)
[2018-01-10] MEDS: INSULIN DETEMIR 100 UNIT/ML 10 ML VIAL SQ SCH (21:18)
[2018-01-10] MEDS: MIRTAZAPINE 15 MG TAB PO SCH (21:18)
--- NOTE | 2018-01-10 21:20 | PN ---
PROGRESS NOTE SUBJECTIVE: 72-year-old white female with positive bacteremia. She would have been discharged but she had positive bacteremia, Infectious Disease has been consulted. Repeat blood cultures has been ordered. Cardiovascular S1-S2, lungs clear. GI soft. Hematology negative Homans. ASSESSMENT: Bacteremia. Await clearance from repeat blood cultures for bacteremia prior to discharge. Otherwise, she will be cleared to go home. MMODL / IJN: [id number] /
--- NOTE | 2018-01-11 00:17 | CONS ---
CONSULTATION DATE OF SERVICE: 01/10/2018. REASON FOR CONSULTATION: Positive blood culture. HISTORY OF PRESENT ILLNESS: The patient is a 72 -year-old female presenting to the ER at [facility] on 01/07/2018 with chief complaints of increasing shortness of breath and mental status changes. Apparently this had been going on for a day or two prior to presentation to hospital. The patient denies significant chest pain. She did have some cough but not bringing up any sputum. Denies any nausea, vomiting, abdominal pain, no diarrhea and no difficulty swallowing. With these symptoms, the patient was evaluated by the ER physician. She did have a chest x-ray which shows some subsegmental atelectasis chronic left lower lobe. The patient also have a CT of the abdomen and pelvis completed which just shows mild pleural thickening and infiltrate atelectasis at the left lung base. No acute abnormality in the abdomen or pelvis. Also had an ultrasound of the gallbladder that reportedly was negative for any acute abnormality. The patient did have a fever of 103 degrees Fahrenheit on presentation to the hospital. She did have blood cultures obtained which came back positive with gram-positive cocci yesterday. Vancomycin was added. Infectious Disease was consulted for further recommendations. The patient also had influenza A and B PCR that has been negative as well. The patient's fever has resolved. The patient currently denies having any headache to me. No chest pain or shortness of breath. She did have some cough, not bringing up sputum. No nausea, vomiting. No abdominal pain. No diarrhea. REVIEW OF SYSTEMS: CONSTITUTIONAL: Positive for weakness and a fever that has resolved. EYES: No complaint. ENT: No complaints. RESPIRATORY: As per HPI. CARDIOVASCULAR: No complaints. GENITOURINARY: No complaints. GASTROINTESTINAL: No complaints. MUSCULOSKELETAL: No complaints. PSYCHOLOGICAL: No complaints. ENDOCRINE: No complaint. NEUROLOGIC: No complaint. PAST MEDICAL HISTORY: Significant for COPD, coronary artery disease, asthma, heart failure, diabetes mellitus, , hyperlipidemia, hypertension and renal insufficiency. PAST SURGICAL HISTORY: Adenoidectomy, appendectomy, coronary artery bypass grafting, heart catheterization, hysterectomy, tonsillectomy, left thoracentesis. SOCIAL HISTORY: Denies smoking, drinking or drug use. FAMILY HISTORY: Mother with history of coronary artery disease. Father with history of kidney cancer. ALLERGIES: PENICILLIN with a rash. No history of anaphylaxis. MEDICATION: Medications include the patient is currently on: 1. Tylenol. 2. [place]. 3. DuoNeb. 4. Aspirin. 5. Lipitor. 6. Plavix. 7. Lovenox. 8. Levemir. 9. Lamictal. 10.Levaquin 750 every 48. 11.Mirtazapine. 12.Singulair. 13.Morphine. 14. . 15.Prednisone. 16.Vancomycin pharmacy to dose. EXAMINATION: Blood pressure is 148/57 with a pulse of 90, temperature 98 she is 100% on room air. GENERAL DESCRIPTION: An elderly female, lying in bed in no distress. No tachypnea or accessory muscle of respiration use. HEENT: Shows slight pallor. No scleral icterus. Oral mucosa is moist. No pharyngeal erythema or thrush. NECK: Trachea central. No thyromegaly. LUNGS: Unlabored breathing with decreased breath sounds in the bases. No wheeze or crackle. HEART: S1, S2. Regular rate and rhythm. ABDOMEN: Soft, no tenderness. No guarding or rigidity. EXTREMITIES: Left leg has some swelling but no redness. No skin breakdown or drainage. NEUROLOGIC: The patient is awake, alert, oriented x3. Mood and affect normal. LABS: Hemoglobin 9.5, white count 18.2, BUN of 29, creatinine 1.56. Electrolytes have been normal. Liver studies normal. Urine has been negative. Influenza serology was negative. Chest x-ray, CT report as mentioned above. DIAGNOSTIC IMPRESSION AND PLAN: 1. Patient admitted to the hospital with a fever of 103 Fahrenheit. The patient did have some mental status changes, increasing shortness of breath and cough with evidence of left lower lobe infiltrate likely representing a community-acquired pneumonia with secondary chronic obstructive pulmonary disease exacerbation. 2. Patient with a positive blood culture with gram-positive cocci now finalized with E coli, likely representing a skin contamination and not a true infection. 3. Patient with elevated creatinine, high risk of nephrotoxicity from vancomycin. 4. Patient with PENICILLIN ALLERGY that will limit the number of antibiotics that could be safely used. PLAN: 1. Discontinue vancomycin as clinically doubt true bacteremia and decrease risk of nephrotoxicity. 2. We will try to obtain sputum for Gram stain culture and sensitivity. 3. We will add Rocephin 1 g daily. Continue Levaquin to cover for the underlying community acquired pneumonia. 4. We will follow up on clinical condition and culture to further adjust medication if needed. Thank you for this consultation. Will follow this patient along with you. MMODL / IJN: [id number] /
[2018-01-11] MEDS: SODIUM CHLORIDE 0.9% 1,000 ML IV SCH ×2 (00:41→17:11)
[2018-01-11] MEDS: TRIAMCINOLONE ACET 0.1% OINTMENT 15 GM TUBE TOPICAL SCH ×2 (00:41→08:05)
[2018-01-11] MEDS: HYDROcodone/APAP 7.5-325MG 1 EACH TAB PO PRN (05:23)
[2018-01-11] MEDS: LEVOTHYROXINE 50 MCG TAB PO SCH (05:23)
[2018-01-11 05:47] VITALS: RESP 17; TEMP 98
[2018-01-11 07:02] LABS: Glucose,Whole Blood 120 mg/dL (75-99)
[2018-01-11] MEDS: INSULIN ASPART 100 UNIT/ML 1 ML 10 ML VIAL SQ SCH ×3 (07:26→17:09)
[2018-01-11] MEDS: IPRATROPIUM-ALBUTEROL 3 ML NEB INHALATION SCH ×4 (07:56→19:34)
[2018-01-11] MEDS: NIFEdipine XL 30 MG TAB.ER.24 PO SCH (08:04)
[2018-01-11] MEDS: predniSONE 20 MG TAB PO SCH (08:04)
[2018-01-11] MEDS: CLOPIDOGREL 75 MG TAB PO SCH (08:04)
[2018-01-11] MEDS: ENOXAPARIN 30 MG/0.3 ML SYRINGE SQ SCH (08:04)
[2018-01-11] MEDS: lamoTRIgine 25 MG TAB PO SCH (08:04)
[2018-01-11] MEDS: ASPIRIN 81 MG PO SCH (08:04)
[2018-01-11 08:43] LABS: Potassium 3.8 mmol/L (3.5-5.1)
[2018-01-11] MEDS ORDERED: ERGOCALCIFEROL 50,000 UNIT CAP PO SCH (09:00)
--- NOTE | 2018-01-11 09:01 | XR ---
EXAMINATION TYPE: XR chest 2V DATE OF EXAM: 01/11/2018 COMPARISON: 01/08/2018 TECHNIQUE: PA and lateral views submitted. HISTORY: Pneumonia FINDINGS: Postsurgical change right shoulder with arthropathy noted bilaterally. Chronic rib deformities with p leural thickening noted. Heart is enlarged there is postsurgical changes. Interstitium prominent ther e is left basilar consolidation and small effusion. Diffuse osteopenia with hypertrophic and degenera tive change of the spine. IMPRESSION: 1. Left basilar infiltrate and small effusion stable. Underlying venous congestion or interstitial pn eumonitis in the differential diagnosis correlate clinically.
[2018-01-11 09:08] LABS: Vancomycin,Random 14.6 ug/mL
--- NOTE | 2018-01-11 09:47 | CDI ---
Last Revision, January 2017 Documentation Clarification Form Date: 01/11/18 From: Aidee Anderson RN Admit Date: 01/07/2018 9:28:00 PM Patient Name: Lucy Barnes Visit Number: [id number] ATTENTION: The Clinical Documentation Specialists (CDI) and [facility] Coding Staff appreciate your assistance in clarifying documentation. Please respond to the clarification below the line at the bottom and electronically sign. The CDI & [facility] Coding staff will review the response and follow-up if needed. Please note: Queries are made part of the Legal Health Record. If you have any questions, please contact the author of this message via ITS. Eric Morocho MD, Can you please render your opinion on the following documentation? Patient admitted with SOB, disoriented, acute asthma, acute renal failure, COPD, fever, nosocomial pneumonia Clinical Indicators: WBC on admission: 17.9 Lactic acid: 3.9 Blood cultures: final gram positive cocci in clusters Vitals signs on admission: T 103.1, P 91, R 24, 134/71, 94% RA Treatment: ID Consult: Dr Dobson Antibiotics: Cefepime IVPB, Ceftriaxone IVPB, Levofloxacin IVPB, Vanco. IVPB IV Bolus: .9 500ml In your professional opinion, please clarify if these findings signify one of the following conditions, whether the condition is POA, and cause, if known: Sepsis ruled in Sepsis ruled out Severe Sepsis Other, please specify Unable to determine Present on Admission: Yes No Identify the (suspected) organism SIRS Criteria..2 or more of the following may indicate SIRS: Temperature < 96.8F (36C) or > 101.0F (38.3C) Heart Rate > 90 bpm Respiratory Rate > 20 breaths/min or PaCO2 < 32 mmHg White Blood Cell Count > 12,000 or < 4,000 cells/mm3 or > 10% bands Lactate >2.0 mmol/L (>4.0 is equivalent to septic shock) MTDD
[2018-01-11 09:48] LABS: Iron Saturation 28.78 (12.00-45.00)
[2018-01-11 11:59] LABS: Glucose,Whole Blood 152 mg/dL (75-99)
[2018-01-11 12:31] VITALS: BP 151/70
[2018-01-11 15:29] VITALS: PULSE 96
--- NOTE | 2018-01-11 15:48 | P.PN ---
Subjective Progress Note Date: 01/11/18 Principal diagnosis: Left lower lobe pneumonia, moving, mild diastolic congestive heart failure Progress note dated 01/10/2018 72-year-old female seen in consultation at couple days ago with an acute febrile illness and possible pneumonia left lower lobe. The patient is doing better from our perspective we thought she might be discharged. There may be other reasons keeping her here. From the pulmonary standpoint today, she is feeling much better. Much less short of breath. She does have a dry nonproductive cough. No fever or chills. No wheezing. Not coughing up any blood. The patient denies any chest pain or chest discomfort. In addition, she was admitted with a mild lactic acidosis which improved with fluids, mild diastolic heart failure, chronic bronchial asthma, stage III chronic kidney disease, history of bypass grafting with aortic valve replacement, hypertension , hyperlipidemia, diabetes mellitus, and gastroesophageal reflux disease. She did have a gallbladder ultrasound which was essentially unremarkable. On 12/11/2017 patient seen in follow-up on medical surgical floor. Room air pulse ox is 94%, she is afebrile, hemodynamically stable. Her breathing is easier, she is improving, no fever, no chills. Today's chest x-ray is been reviewed, shows left basilar infiltrate and small pleural effusion. Preliminary blood cultures positive for coagulase-negative staph, final culture is pending. She is covered with a combination of Rocephin, Levaquin and she received a dose of vancomycin. His labs have been reviewed, BNP was done, sodium is 143, potassium is 3.8, chloride is 110, B1 of 24 and creatinine 1.27. He is receiving IV hydration 0.9 normal saline at 50 ML per hour, nephrology is following. Renal profile is improving. Objective - Vital Signs Vital signs: Vital Signs Temp 98 F 01/11/18 12:31 Pulse 96 01/11/18 15:28 Resp 17 01/11/18 12:31 BP 151/70 01/11/18 12:31 Pulse Ox 94 L 01/11/18 12:31 Intake & Output 01/10/18 01/11/18 01/11/18 18:59 06:59 18:59 Intake Total 400 880 Balance 400 880 Weight 83.915 kg Intake: Intake, IV Titration 400 400 Amount Sodium Chloride 0.9% 1, 400 400 000 ml @ 50 mls/hr IV . Q20H [facility] Rx#:[id number] Oral 480 Other: Voiding Method Toilet Toilet Toilet # Voids 2 - Exam No acute distress, oriented 3. No respiratory distress or difficulty. HEENT examination is grossly unremarkable. Mucous membranes are moist. No oral lesions. Neck supple. Full range of motion. No adenopathy thyromegaly or neck vein distention. Cardiovascular examination reveals regular rhythm rate. S1-S2 normal. No S3 or S4. No discernible murmur noted. Lungs reveal mostly clear breath sounds. A few scattered rhonchi are noted. A few scattered crackles are appreciated as well. There is no wheezes. Breath sounds equal bilaterally. Abdomen soft bowel sounds are heard. No masses or tenderness. Extremities are intact. No cyanosis clubbing or edema. Skin is without rash or lesion. Neurologic examination is brief but nonfocal. - Labs CBC & Chem 7: 01/10/18 07:33 01/11/18 07:42 Labs: Abnormal Lab Results - Last 24 Hours (Table) 01/10/18 01/10/18 01/10/18 Range/Units 07:33 17:06 21:09 Chloride (98-107) mmol/L BUN (7-17) mg/dL Creatinine (0.52-1.04) mg/dL POC Glucose (mg/dL) 403 H 369 H (75-99) mg/dL TIBC 205 L (228-460) ug/dL 01/11/18 01/11/18 01/11/18 Range/Units 07:00 07:42 11:58 Chloride 110 H (98-107) mmol/L BUN 24 H (7-17) mg/dL Creatinine 1.27 H (0.52-1.04) mg/dL POC Glucose (mg/dL) 120 H 152 H (75-99) mg/dL TIBC (228-460) ug/dL Assessment and Plan Plan: Assessment: #1. Acute febrile illness, shortness of breath, chest x-ray showed a limited infiltrate/atelectasis in the left lower lobe. Possibility of pneumonia is not excluded, although the chest x-ray and the abdomen/pelvis CT findings not very impressive #2. Leukocytosis #3. Lactic acidosis, improved with IV fluids #4. Possible mild congestive heart failure, with previously documented diastolic dysfunction with an EF between 55-60% #5. History of chronic bronchial asthma #6. Chronic kidney disease, stage III #7. History of coronary artery disease, with previous bypass grafting and aortic valve replacement #8. Hypertension, hyperlipidemia #9. Diabetes mellitus #10. GERD/reflux Plan: Continue current antibiotic coverage, continue with oral steroids, nebulized bronchodilators, patient clinically is improving, today's chest x-ray has been reviewed by Dr. Segovia, and shows left basilar infiltrate and small pleural effusion. Continue current medical treatment, increase activity as tolerated. Awaiting final results of blood cultures. No acute events overnight, no fever or chills, no cough or chest congestion. Anticipate discharge home in next 24 hours. I performed a history & physical examination of the patient and discussed their management with my nurse practitioner, Yesenia Sam. I reviewed the nurse practitioner's note and agree with the documented findings and plan of care. Lung sounds are diminished at the left base. The findings and the impression was discussed with the patient. I attest to the documentation by the nurse practitioner. Time with Patient: Less than 30
[2018-01-11 16:50] LABS: Glucose,Whole Blood 399 mg/dL (75-99)
--- NOTE | 2018-01-11 18:30 | PN ---
PROGRESS NOTE The patient is seen for followup for acute kidney injury. She was admitted with a creatinine which at 1.5, it peaked to 1.9 mg/dL and is down to 1.27 now. The patient overall states she is feeling much better. She is maintained on IV Rocephin. Blood cultures 1 set grew coagulase-negative Staph. The next set of cultures is negative. The patient has been voiding well. PHYSICAL EXAMINATION: This morning, when she was seen, blood pressure was 151/70, heart rate 94 per minute. Patient is afebrile. Examination of the heart S1, S2. Examination of lungs bilateral breath sounds are heard. Abdomen is soft, nontender. Examination of lower extremities shows no significant edema. 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 LABS: Sodium 143, potassium 3.8, chloride 110, BUN 24, serum creatinine 1.27. Vancomycin 14.6. ASSESSMENT: 1. Acute kidney injury, currently significantly improved. The nonoliguric etiology is underlying infection/pneumonia. 2. Chronic kidney disease secondary to nephrosclerosis. 3. Left basal pneumonia. 4. Hypertension, controlled. 5. 1/2 blood cultures positive for coagulase negative Staph. PLAN: The patient is encouraged to maintain good oral intake. We can likely discontinue the IV fluids tomorrow. There are no nephrotoxic agents on board. The patient should follow up as outpatient for CKD. MMODL / IJN: [id number] /
[2018-01-11] MEDS ORDERED: LEVOFLOXACIN 750 MG TAB PO SCH (20:00)
--- NOTE | 2018-01-12 06:36 | PN ---
PROGRESS NOTE DATE OF SERVICE: 01/11/2018 REASON FOR FOLLOWUP: 1. Pneumonia. 2. Positive blood culture. INTERVAL HISTORY: The patient was seen on rounds earlier this afternoon. The patient has been afebrile. She has been breathing more comfortably. Denies significant chest pain. Very minimal cough. No nausea, vomiting. No abdominal pain and no diarrhea. PHYSICAL EXAMINATION: On examination, blood pressure is 151/70 with a pulse 94, temperature 98. She is 94% on room air. General description is an elderly female lying in bed in no distress. RESPIRATORY SYSTEM: Unlabored breathing with decreased breath sounds at the bases, no wheeze. HEART: S1, S2. Regular rate and rhythm. ABDOMEN: Soft, no tenderness. LABS: BUN of 24, creatinine is 1.27. Blood culture repeat on 01/10 has been negative. DIAGNOSTIC IMPRESSION AND PLAN: 1. Patient with positive blood culture with coagulase-negative staphylococcus, likely skin contamination. Repeat blood culture has been negative. Patient does not need further workup for the same. 2. The patient hospital with possible pneumonia and seemed to have shown overall clinical improvement on Levaquin and Rocephin, likely a community-acquired pneumonia. Plan to finish therapy with oral Ceftin 500 mg twice a day for another few days. Plan of care was discussed with the admitting physician on the phone. SILVIA / JAUNN: [id number] /
[2018-01-12] MEDS ORDERED: ENOXAPARIN 40 MG/0.4 ML SYRINGE SQ SCH (09:00)
--- NOTE | 2018-01-13 12:44 | DS ---
DISCHARGE SUMMARY ADDITION TO THE DISCHARGE SUMMARY Sepsis ruled out. Systemic inflammatory response syndrome ruled in. MMODL / IJN: [id number] /
--- NOTE | 2018-01-19 09:58 | DS ---
DISCHARGE SUMMARY Please add to discharge summary: Systemic inflammatory response syndrome. MMODL / IJN: [id number] /
--- NOTE | 2018-02-07 18:23 | DS ---
DISCHARGE SUMMARY ADDENDUM: Please add to the discharge summary: Sepsis ruled in. SILVIA / IJN: [id number] /
== END 2018-01-11 19:40 | disposition home or self-care (01) | DRG 871 ==
LOC: EC 18:57 → 3NMEDONC 21:28
PROVIDERS: ADMIT Family Medicine; ATTEND Family Medicine
DX: A41.9 Sepsis, unspecified organism (principal); J18.9 Pneumonia, unspecified organism; I50.33 Acute on chronic diastolic (congestive) heart failure; N17.0 Acute kidney failure with tubular necrosis; J44.1 Chronic obstructive pulmonary disease with (acute) exacerbation; E87.2 Acidosis; I13.0 Hypertensive heart and chronic kidney disease with heart failure and stage 1 through stage 4 chronic kidney disease, or unspecified chronic kidney disease; J45.901 Unspecified asthma with (acute) exacerbation; J98.11 Atelectasis; L03.116 Cellulitis of left lower limb; J44.0 Chronic obstructive pulmonary disease with (acute) lower respiratory infection; D63.1 Anemia in chronic kidney disease; E03.9 Hypothyroidism, unspecified; E11.22 Type 2 diabetes mellitus with diabetic chronic kidney disease; I95.9 Hypotension, unspecified; E11.65 Type 2 diabetes mellitus with hyperglycemia; E66.9 Obesity, unspecified; E78.5 Hyperlipidemia, unspecified; E86.0 Dehydration; F41.9 Anxiety disorder, unspecified; I25.10 Atherosclerotic heart disease of native coronary artery without angina pectoris; I25.2 Old myocardial infarction; K21.9 Gastro-esophageal reflux disease without esophagitis; K59.00 Constipation, unspecified; N18.3 Chronic kidney disease, stage 3 (moderate); R06.03 Acute respiratory distress; R09.02 Hypoxemia; G89.29 Other chronic pain; M54.9 Dorsalgia, unspecified; Z79.02 Long term (current) use of antithrombotics/antiplatelets; Z79.4 Long term (current) use of insulin; Z79.82 Long term (current) use of aspirin; Z79.899 Other long term (current) drug therapy; Z79.890 Hormone replacement therapy; Z95.2 Presence of prosthetic heart valve; Z95.1 Presence of aortocoronary bypass graft; Z90.710 Acquired absence of both cervix and uterus; Z88.0 Allergy status to penicillin; Z68.32 Body mass index [BMI] 32.0-32.9, adult; Z90.49 Acquired absence of other specified parts of digestive tract; Z80.51 Family history of malignant neoplasm of kidney
CPT/HCPCS: 36415; 71046; 74176; 76705; 80048; 80053; 80202; 81003; 82550; 82553; 83036; 83540; 83550; 83605; 83735; 83880; 84484; 85025; 85610; 85730; 87040; 87077; 87186; 87502; 93005; 94640; 96365; 96366; 96367; 99285

== ENCOUNTER → 2018-03-10 | Outpatient (CLI) | payer MEDICARE ==
[2018-03-10 10:59] LABS: Appearance,Urine Cloudy (Clear); Bilirubin,Urine Negative (Negative); Blood,Urine Negative (Negative); Color,Urine Yellow; Glucose,Urine (UA) 2+ (Negative); Hyaline Casts,Urine 4 /lpf (0-2); Ketones,Urine Negative (Negative); Leukocyte Esterase,Urine Negative (Negative); Mucus,Urine Rare /hpf; Nitrite,Urine Negative (Negative); Protein,Urine Negative (Negative); Specific Gravity,Urine 1.009 (1.001-1.035); Squamous Epithelial Cell,Urine 5 /hpf (0-4); Urobilinogen,Urine <2.0 mg/dL (<2.0); WBC,Urine 1 /hpf (0-5)
[2018-03-10 11:11] LABS: HCT 34.3 % (34.0-46.0); HGB 11.4 gm/dL (11.4-16.0); MCH 30.6 pg (25.0-35.0); MCHC 33.2 g/dL (31.0-37.0); MCV 92.2 fL (80.0-100.0); Mean Platelet Volume 7.1; Platelet Count 282 k/uL (150-450); RBC 3.72 m/uL (3.80-5.40); RDW 15.4 % (11.5-15.5)
[2018-03-10 17:12] LABS: Iron Saturation 19.19 (12.00-45.00)
[2018-03-10 18:03] LABS: Creatinine,Urine Random 68.6 mg/dL
[2018-03-10 18:08] LABS: Total Protein,Urine Random 13.4 mg/dL (0.0-13.5)
[2018-03-10 19:02] LABS: Albumin/Globulin Ratio 2.11 (1.20-2.10); Anion Gap 10.1 mmol/L (4.00-12.00); Calcium 9.3 mg/dL (8.7-10.3); Carbon Dioxide 33.9 mmol/L (21.6-31.8); Globulin 1.9 g/dL (1.6-3.3); Magnesium 1.7 mg/dL (1.5-2.4); Phosphorus 3.3 mg/dL (2.4-5.1); Potassium 3.4 mmol/L (3.5-5.5); Total Bilirubin 0.4 mg/dL (0.3-1.2); Total Protein 5.9 g/dL (6.2-8.2); Uric Acid 8.4 mg/dL (2.9-7.7)
== END | disposition home or self-care (01) ==
LOC: LABWHC1 10:01
PROVIDERS: ATTEND Nurse Practitioner Family
DX: N17.9 Acute kidney failure, unspecified (principal); N18.9 Chronic kidney disease, unspecified; N39.0 Urinary tract infection, site not specified; D63.1 Anemia in chronic kidney disease; E21.3 Hyperparathyroidism, unspecified; E55.9 Vitamin D deficiency, unspecified; M10.9 Gout, unspecified
CPT/HCPCS: 36415; 80053; 81001; 82306; 82570; 82728; 83540; 83550; 83735; 83970; 84100; 84156; 84550; 85027

== ENCOUNTER → 2018-07-13 | Outpatient (CLI) | payer MEDICARE ==
[2018-07-13 10:56] LABS: Basophils % (A) 1 %; Eosinophils # (A) 0.2 k/uL (0-0.7); Eosinophils % (A) 3 %; HCT 33.4 % (34.0-46.0); HGB 10.5 gm/dL (11.4-16.0); Lymphocytes # (A) 1.2 k/uL (1.0-4.8); Lymphocytes % (A) 15 %; MCH 29.1 pg (25.0-35.0); MCHC 31.4 g/dL (31.0-37.0); MCV 92.5 fL (80.0-100.0); Mean Platelet Volume 7.5; Monocytes # (A) 0.3 k/uL (0-1.0); Monocytes % (A) 4 %; Neutrophils % (A) 77 %; Platelet Count 269 k/uL (150-450); RBC 3.61 m/uL (3.80-5.40); RDW 15.1 % (11.5-15.5); WBC 7.9 k/uL (3.8-10.6)
[2018-07-13 10:57] LABS: Appearance,Urine Clear (Clear); Bilirubin,Urine Negative (Negative); Blood,Urine Negative (Negative); Color,Urine Colorless; Glucose,Urine (UA) 3+ (Negative); Ketones,Urine Negative (Negative); Leukocyte Esterase,Urine Negative (Negative); Nitrite,Urine Negative (Negative); Protein,Urine Negative (Negative); Specific Gravity,Urine 1.007 (1.001-1.035); Urobilinogen,Urine <2.0 mg/dL (<2.0)
[2018-07-13 17:55] LABS: Parathyroid Hormone Intact 56.4 pg/mL (14.0-72.0)
[2018-07-13 18:39] LABS: Iron Saturation 27.63 (12.00-45.00)
[2018-07-13 18:47] LABS: Vitamin D 25 Hydroxy 43.1 ng/mL (30.0-100.0)
[2018-07-13 19:00] LABS: Albumin 3.8 g/dL (3.80-4.90); Anion Gap 8.8 mmol/L (4.00-12.00); Calcium 8.9 mg/dL (8.7-10.3); Carbon Dioxide 23.2 mmol/L (21.6-31.8); Magnesium 1.9 mg/dL (1.5-2.4); Phosphorus 3.6 mg/dL (2.4-5.1); Potassium 5.4 mmol/L (3.5-5.5); Uric Acid 6.1 mg/dL (2.9-7.7)
[2018-07-13 20:23] LABS: Creatinine,Urine Random 31.8 mg/dL
[2018-07-13 20:24] LABS: Total Protein,Urine Random <4.0 mg/dL (0.0-13.5)
== END | disposition home or self-care (01) ==
LOC: LABWHC1 09:56
PROVIDERS: ATTEND Internal Medicine Nephrology
DX: N39.0 Urinary tract infection, site not specified (principal); E55.9 Vitamin D deficiency, unspecified; E21.3 Hyperparathyroidism, unspecified; M10.9 Gout, unspecified; D63.1 Anemia in chronic kidney disease; N18.3 Chronic kidney disease, stage 3 (moderate); R80.9 Proteinuria, unspecified
CPT/HCPCS: 36415; 80048; 81003; 82040; 82306; 82570; 82728; 83540; 83550; 83735; 83970; 84100; 84156; 84550; 85025

== ENCOUNTER 2018-07-30 19:43 | Emergency (ER) | payer MEDICARE ==
[2018-07-30 20:30] VITALS: RESP 18; TEMP 98.9
[2018-07-30] MEDS ORDERED: ACETAMINOPHEN TAB 325 MG TAB PO STA (21:53)
--- NOTE | 2018-07-30 22:48 | XR ---
EXAM: XR Chest, 2 Views CLINICAL HISTORY: ITS.REASON XR Reason: Cough/pain TECHNIQUE: Frontal and lateral views of the chest. COMPARISON: Chest x-ray 01/11/2018 FINDINGS: Again demonstrated are postsurgical changes of previous median sternotomy and cardiac surgery with valvular replacement. Heart size is mildly enlarged. Mediastinal structures are unremarkable. Chronic left basilar opacity and opacity along the posterior left lower hemithorax most suggestive of pleural-parenchymal scarring and mild pleural thickening. No evidence of acute pulmonary infiltrate or consolidation. No overt congestive failure or pulmonary edema. No evidence of pleural effusion or pneumothorax. Postsurgical changes about the right shoulder. Hypertrophic degenerative changes throughout thoracic spine raising possibility of DISH. IMPRESSION: Post surgical changes of previous median sternotomy and cardiac surgery. Mild cardiomegaly. Left basilar opacity most suggestive of pleural-parenchymal scarring and mild pleural thickening. No evidence of acute cardiopulmonary disease.
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
[2018-07-30 23:24] VITALS: BP 127/61; PULSE 72
== END 2018-07-30 23:24 | disposition home or self-care (01) ==
LOC: EC 19:43
DX: Z04.3 Encounter for examination and observation following other accident (principal); J44.9 Chronic obstructive pulmonary disease, unspecified; I25.10 Atherosclerotic heart disease of native coronary artery without angina pectoris; I11.0 Hypertensive heart disease with heart failure; I50.9 Heart failure, unspecified; I25.2 Old myocardial infarction; E11.9 Type 2 diabetes mellitus without complications; E78.5 Hyperlipidemia, unspecified; Z79.82 Long term (current) use of aspirin; Z79.4 Long term (current) use of insulin; Z79.899 Other long term (current) drug therapy; Z79.890 Hormone replacement therapy; Z88.0 Allergy status to penicillin; Z95.1 Presence of aortocoronary bypass graft; Z95.5 Presence of coronary angioplasty implant and graft; Z95.2 Presence of prosthetic heart valve; W19.XXXA Unspecified fall, initial encounter
CPT/HCPCS: 71046; 99283

== ENCOUNTER 2018-08-06 19:35 | Inpatient (IN) | payer MEDICARE ==
[2018-08-06] MEDS ORDERED: SODIUM CHLORIDE 0.9% 1,000 ML IV STA (19:37)
[2018-08-06 19:46] LABS: Glucose,Whole Blood 116 mg/dL (75-99)
[2018-08-06] MEDS ORDERED: SODIUM CHLORIDE 0.9% 500 ML 500 ML IV ONE (20:10)
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
[2018-08-06 20:11] LABS: Albumin 3.9 g/dL (3.5-5.0); Calcium 8.9 mg/dL (8.4-10.2); Magnesium 2.4 mg/dL (1.6-2.3); Potassium 5.2 mmol/L (3.5-5.1); Total Bilirubin 0.9 mg/dL (0.2-1.3); Total Protein 7.1 g/dL (6.3-8.2)
[2018-08-06 20:24] LABS: Basophils # (A) 0.1 k/uL (0-0.2); Basophils % (A) 0 %; Eosinophils # (A) 0.1 k/uL (0-0.7); Eosinophils % (A) 1 %; HCT 34.2 % (34.0-46.0); HGB 11.4 gm/dL (11.4-16.0); Lymphocytes # (A) 1.9 k/uL (1.0-4.8); Lymphocytes % (A) 12 %; MCH 29.6 pg (25.0-35.0); MCHC 33.4 g/dL (31.0-37.0); MCV 88.8 fL (80.0-100.0); Mean Platelet Volume 8.4; Monocytes # (A) 0.7 k/uL (0-1.0); Monocytes % (A) 5 %; Neutrophils # (A) 13.2 k/uL (1.3-7.7); Neutrophils % (A) 82 %; Platelet Count 258 k/uL (150-450); RBC 3.86 m/uL (3.80-5.40); RDW 15.6 % (11.5-15.5)
[2018-08-06 20:30] LABS: INR 0.9 (<1.2); Partial Thromboplastin Time 18.6 sec (22.0-30.0); Prothrombin Time 9.6 sec (9.0-12.0)
--- NOTE | 2018-08-06 21:06 | XR ---
EXAMINATION TYPE: XR chest 2V DATE OF EXAM: 08/06/2018 COMPARISON: 07/30/2018 HISTORY: Syncope TECHNIQUE: Frontal and lateral views of the chest are obtained. FINDINGS: Heart is normal. There is mild coarsening of the lung markings. There is no heart failure. There are sternal wires. There is a 4 cm pleural-based infiltrate at the posterior aspect of the lef t lower lobe. There is no definite pleural effusion. There is cardiac surgery noted. IMPRESSION: Focal pleural thickening in the left lower lobe unchanged. No heart failure. This could be some loculated pleural fluid.
[2018-08-06 21:46] LABS: Appearance,Urine Clear (Clear); Bilirubin,Urine Negative (Negative); Blood,Urine Negative (Negative); Color,Urine Colorless; Glucose,Urine (UA) Trace (Negative); Ketones,Urine Negative (Negative); Leukocyte Esterase,Urine Negative (Negative); Nitrite,Urine Negative (Negative); Protein,Urine Negative (Negative); Specific Gravity,Urine 1.007 (1.001-1.035); Urobilinogen,Urine <2.0 mg/dL (<2.0)
[2018-08-06] MEDS ORDERED: cefTRIAXone IN SWFI 1,000 MG/10 ML SYRINGE IVP STA (22:02)
[2018-08-06] MEDS ORDERED: ACETAMINOPHEN TAB 325 MG TAB PO PRN (23:18)
[2018-08-06] MEDS ORDERED: NALOXONE 0.4 MG/ML 1 ML VIAL IV PRN (23:18)
[2018-08-06] MEDS ORDERED: ALBUTEROL NEBULIZED 2.5 MG/3 ML INHALATION PRN (23:19)
[2018-08-07] MEDS: SODIUM CHLORIDE 0.9% 1,000 ML IV SCH ×2 (01:04→12:59)
[2018-08-07 06:28] LABS: Glucose,Whole Blood 229 mg/dL (75-99)
[2018-08-07] MEDS: INSULIN ASPART (NovoLOG) 100 UNIT/ML VIAL SQ SCH ×4 (06:35→21:22)
[2018-08-07] MEDS: LEVOTHYROXINE 50 MCG TAB PO SCH (06:36)
[2018-08-07] MEDS: CLOPIDOGREL 75 MG TAB PO SCH (09:09)
[2018-08-07] MEDS: ASPIRIN 81 MG PO SCH (09:09)
[2018-08-07 11:49] LABS: Glucose,Whole Blood 356 mg/dL (75-99)
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
[2018-08-07 14:20] LABS: Hemoglobin A1C 10.7 % (4.0-6.0)
[2018-08-07] MEDS ORDERED: NITROGLYCERIN SL TABS 0.4 MG TAB SUBLINGUAL PRN (14:51)
[2018-08-07 17:11] LABS: Glucose,Whole Blood 318 mg/dL (75-99)
[2018-08-07] MEDS ORDERED: INSULIN LISPRO 1 UNIT SQ SCH (17:30)
[2018-08-07] MEDS: HYDROCHLOROTHIAZIDE 25 MG TAB PO SCH (18:15)
[2018-08-07] MEDS: NIFEdipine XL 30 MG TAB.ER.24 PO SCH (18:15)
[2018-08-07] MEDS: FERROUS SULFATE 325 MG TAB PO SCH (18:15)
[2018-08-07] MEDS: LISINOPRIL 5 MG TAB PO SCH (18:15)
[2018-08-07] MEDS: FUROSEMIDE 20 MG TAB PO SCH (18:15)
[2018-08-07] MEDS ORDERED: ERGOCALCIFEROL 50,000 UNIT CAP PO SCH (21:00)
[2018-08-07 21:03] LABS: Glucose,Whole Blood 242 mg/dL (75-99)
[2018-08-07] MEDS: MONTELUKAST 10 MG TAB PO SCH (21:20)
[2018-08-07] MEDS: ATORVASTATIN 40 MG TAB PO SCH (21:21)
[2018-08-07] MEDS: tiZANidine 4 MG TAB PO SCH (21:21)
[2018-08-07] MEDS: REPAGLINIDE 1 MG TAB PO SCH (21:21)
[2018-08-07] MEDS: MIRTAZAPINE 15 MG TAB PO SCH (21:21)
[2018-08-07] MEDS: INSULIN DETEMIR (LEVEMIR) 100 UNIT/ML SYR SQ SCH (21:22)
[2018-08-07] MEDS: TRIAMCINOLONE 0.1% CREAM 80 GM TUBE TOPICAL SCH (21:22)
[2018-08-07] MEDS: ATENOLOL 25 MG TAB PO SCH (21:22)
[2018-08-08 06:34] LABS: Glucose,Whole Blood 194 mg/dL (75-99)
[2018-08-08 06:41] LABS: Basophils % (A) 0 %; Eosinophils # (A) 0.2 k/uL (0-0.7); Eosinophils % (A) 2 %; HCT 31.7 % (34.0-46.0); HGB 10.1 gm/dL (11.4-16.0); Lymphocytes # (A) 1.8 k/uL (1.0-4.8); Lymphocytes % (A) 15 %; MCH 28.7 pg (25.0-35.0); MCHC 31.9 g/dL (31.0-37.0); Mean Platelet Volume 7.4; Monocytes # (A) 0.4 k/uL (0-1.0); Monocytes % (A) 4 %; Neutrophils # (A) 9.3 k/uL (1.3-7.7); Neutrophils % (A) 79 %; Platelet Count 226 k/uL (150-450); RBC 3.52 m/uL (3.80-5.40); RDW 15.2 % (11.5-15.5); WBC 11.8 k/uL (3.8-10.6)
[2018-08-08] MEDS: INSULIN ASPART (NovoLOG) 100 UNIT/ML VIAL SQ SCH ×4 (06:41→21:09)
[2018-08-08] MEDS: LEVOTHYROXINE 50 MCG TAB PO SCH (06:41)
[2018-08-08] MEDS: REPAGLINIDE 1 MG TAB PO SCH ×2 (06:41→17:37)
[2018-08-08] MEDS: SODIUM CHLORIDE 0.9% 1,000 ML IV SCH ×2 (06:42→17:37)
--- NOTE | 2018-08-08 06:48 | XR ---
EXAMINATION TYPE: XR chest 1V portable DATE OF EXAM: 08/08/2018 HISTORY: lll pneumonia. REFERENCE: Previous study dated 08/06/2018. FINDINGS: There has been a midline sternotomy. The heart is mildly enlarged. There is mild vascular congestion without sampson edema. No lobar consolidation is seen. No definite pl eural fluid is seen. Note is made of previous rotator cuff repair in the right shoulder. IMPRESSION: NO SIGNIFICANT INTERVAL CHANGE IN APPEARANCE OF THE CHEST.
[2018-08-08 06:58] LABS: Calcium 8.2 mg/dL (8.4-10.2); Potassium 4.5 mmol/L (3.5-5.1); Total Bilirubin 0.3 mg/dL (0.2-1.3); Total Protein 5.6 g/dL (6.3-8.2)
[2018-08-08] MEDS: MULTIVITAMINS, THERA 1 EACH TAB PO SCH (08:53)
[2018-08-08] MEDS: tiZANidine 4 MG TAB PO SCH ×2 (08:53→20:21)
[2018-08-08] MEDS: LISINOPRIL 5 MG TAB PO SCH (08:53)
[2018-08-08] MEDS: CLOPIDOGREL 75 MG TAB PO SCH (08:53)
[2018-08-08] MEDS: FUROSEMIDE 20 MG TAB PO SCH (08:53)
[2018-08-08] MEDS: ASPIRIN 81 MG PO SCH (08:53)
[2018-08-08] MEDS: lamoTRIgine 25 MG TAB PO SCH (08:53)
[2018-08-08] MEDS: FERROUS SULFATE 325 MG TAB PO SCH (08:53)
[2018-08-08] MEDS: ATENOLOL 25 MG TAB PO SCH (08:53)
[2018-08-08] MEDS: ALLOPURINOL 100 MG TAB PO SCH (08:53)
[2018-08-08] MEDS: HYDROCHLOROTHIAZIDE 25 MG TAB PO SCH (08:53)
[2018-08-08] MEDS: NIFEdipine XL 30 MG TAB.ER.24 PO SCH (08:53)
[2018-08-08] MEDS: INSULIN DETEMIR (LEVEMIR) 100 UNIT/ML SYR SQ SCH ×2 (09:21→21:09)
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
[2018-08-08 11:43] VITALS: BMI 33.3
--- NOTE | 2018-08-08 11:43 | P.PN ---
Subjective Progress Note Date: 08/08/18 Principal diagnosis: Left lower lobe pneumonia, leukocytosis, hypertension, episode of hypotension, bradycardia, dizziness and lightheadedness secondary due to bradycardia and hypotension, uncontrolled diabetes and hyperglycemia, stage III renal failure, chronic elevated liver enzyme, morbid obesity, hyperkalemia 08/08/2018, seen evaluated examined, labs reviewed medications reviewed, renal functions have improved, her liver enzymes improve sugar is little bit better patient however is still feeling short of breath and congested and on his steroids continue antibiotics This is a 72-year-old female who presented into the emergency department with lightheadedness and dizziness symptoms started 1 day prior to coming to the hospital she was found to be hypertensive and bradycardic, the blood pressure on arrival was noted to be 90/40 and heart rate is 55 cardiology has been consulted denies any chest pain denies any shortness of breath some confusion present but dissolved denies any bowel or bladder dysfunction denies any seizure-like activity Objective - Vital Signs Vital signs: Vital Signs Temp 96.8 F L 08/08/18 08:00 Pulse 60 08/08/18 08:00 Resp 18 08/08/18 03:28 BP 135/60 08/08/18 08:00 Pulse Ox 99 08/08/18 08:00 Intake & Output 08/07/18 08/08/18 08/08/18 18:59 06:59 18:59 Intake Total 1410 240 Output Total 300 Balance 1410 -300 240 Weight 85.3 kg Intake: Intake, IV Titration 450 Amount Sodium Chloride 0.9% 1, 450 000 ml @ 75 mls/hr IV . [id number] [facility] Rx#:[id number] Oral 960 240 Output: Urine 300 Other: # Voids 1 - Exam - Constitutional General appearance: cooperative, disheveled, morbidly obese - EENT Eyes: anicteric sclerae, EOMI, PERRLA, poor dentition, normal appearance ENT: normal oropharynx Ears: bilateral: normal - Neck Neck: normal ROM Carotids: bilateral: upstroke normal, bruit absent Thyroid: bilateral: normal size - Respiratory Respiratory: bilateral: CTA, negative: diminished, dullness, rales, rhonchi, wheezing, prolonged expiration - Cardiovascular Rhythm: regular Heart sounds: abnormal: S1, S2 - Gastrointestinal General gastrointestinal: normal bowel sounds, soft - Neurologic Neurologic: CNII-XII intact - Musculoskeletal Musculoskeletal: gait normal, generalized weakness, strength equal bilaterally - Psychiatric Psychiatric: A&O x's 3, appropriate affect, intact judgment & insight - Labs CBC & Chem 7: 08/08/18 05:50 08/08/18 05:50 Labs: Abnormal Lab Results - Last 24 Hours (Table) 08/06/18 08/07/18 08/07/18 Range/Units 19:35 11:39 16:58 WBC (3.8-10.6) k/uL RBC (3.80-5.40) m/uL Hgb (11.4-16.0) gm/dL Hct (34.0-46.0) % Neutrophils # (1.3-7.7) k/uL Sodium (137-145) mmol/L BUN (7-17) mg/dL Creatinine (0.52-1.04) mg/dL Glucose (74-99) mg/dL POC Glucose (mg/dL) 356 H 318 H (75-99) mg/dL Hemoglobin A1c 10.7 H (4.0-6.0) % Calcium (8.4-10.2) mg/dL AST (14-36) U/L ALT (9-52) U/L Total Protein (6.3-8.2) g/dL Albumin (3.5-5.0) g/dL 08/07/18 08/08/18 08/08/18 Range/Units 21:02 05:50 05:50 WBC 11.8 H (3.8-10.6) k/uL RBC 3.52 L (3.80-5.40) m/uL Hgb 10.1 L (11.4-16.0) gm/dL Hct 31.7 L (34.0-46.0) % Neutrophils # 9.3 H (1.3-7.7) k/uL Sodium 136 L (137-145) mmol/L BUN 41 H (7-17) mg/dL Creatinine 1.29 H (0.52-1.04) mg/dL Glucose 190 H (74-99) mg/dL POC Glucose (mg/dL) 242 H (75-99) mg/dL Hemoglobin A1c (4.0-6.0) % Calcium 8.2 L (8.4-10.2) mg/dL AST 41 H (14-36) U/L ALT 183 H (9-52) U/L Total Protein 5.6 L (6.3-8.2) g/dL Albumin 3.0 L (3.5-5.0) g/dL 08/08/18 Range/Units 06:32 WBC (3.8-10.6) k/uL RBC (3.80-5.40) m/uL Hgb (11.4-16.0) gm/dL Hct (34.0-46.0) % Neutrophils # (1.3-7.7) k/uL Sodium (137-145) mmol/L BUN (7-17) mg/dL Creatinine (0.52-1.04) mg/dL Glucose (74-99) mg/dL POC Glucose (mg/dL) 194 H (75-99) mg/dL Hemoglobin A1c (4.0-6.0) % Calcium (8.4-10.2) mg/dL AST (14-36) U/L ALT (9-52) U/L Total Protein (6.3-8.2) g/dL Albumin (3.5-5.0) g/dL Microbiology - Last 24 Hours (Table) 08/06/18 21:20 Blood Culture - Preliminary Blood No Growth after 24 hours Assessment and Plan Assessment: Left lower lobe pneumonia Leukocytosis Hypertension Bradycardia Dizziness and lightheadedness secondary to above Uncontrolled diabetes and hyperglycemia Morbid obesity Mild hyperkalemia Stage III renal failure Elevated liver enzymes Plan: Broad-spectrum antibiotics with Rocephin and Zithromax Consult cardiology Observe closely bradycardia and hypotension blood pressure and heart rate is stable and improving Rehydration Further recommendations pending plan of care as per clinical response of the patient Time with Patient: Greater than 30
[2018-08-08 12:18] LABS: Glucose,Whole Blood 319 mg/dL (75-99)
[2018-08-08 12:18] LABS: Glucose,Whole Blood 337 mg/dL (75-99)
[2018-08-08] MEDS: TRIAMCINOLONE 0.1% CREAM 80 GM TUBE TOPICAL SCH (12:44)
[2018-08-08 17:11] LABS: Glucose,Whole Blood 157 mg/dL (75-99)
[2018-08-08] MEDS: ATORVASTATIN 40 MG TAB PO SCH (20:21)
[2018-08-08] MEDS: MIRTAZAPINE 15 MG TAB PO SCH (20:21)
[2018-08-08] MEDS: MONTELUKAST 10 MG TAB PO SCH (20:21)
[2018-08-08 20:59] LABS: Glucose,Whole Blood 247 mg/dL (75-99)
[2018-08-09] MEDS: SODIUM CHLORIDE 0.9% 1,000 ML IV SCH ×2 (06:33→17:19)
[2018-08-09 06:34] LABS: Glucose,Whole Blood 80 mg/dL (75-99)
[2018-08-09] MEDS: INSULIN ASPART (NovoLOG) 100 UNIT/ML VIAL SQ SCH ×4 (06:36→21:30)
[2018-08-09] MEDS: LEVOTHYROXINE 50 MCG TAB PO SCH (06:36)
[2018-08-09] MEDS: REPAGLINIDE 1 MG TAB PO SCH ×2 (07:05→17:18)
[2018-08-09] MEDS: ALLOPURINOL 100 MG TAB PO SCH (08:34)
[2018-08-09] MEDS: FERROUS SULFATE 325 MG TAB PO SCH (08:34)
[2018-08-09] MEDS: CLOPIDOGREL 75 MG TAB PO SCH (08:34)
[2018-08-09] MEDS: ATENOLOL 25 MG TAB PO SCH (08:34)
[2018-08-09] MEDS: LISINOPRIL 5 MG TAB PO SCH (08:35)
[2018-08-09] MEDS: tiZANidine 4 MG TAB PO SCH ×2 (08:35→21:30)
[2018-08-09] MEDS: HYDROCHLOROTHIAZIDE 25 MG TAB PO SCH (08:35)
[2018-08-09] MEDS: lamoTRIgine 25 MG TAB PO SCH (08:35)
[2018-08-09] MEDS: FUROSEMIDE 20 MG TAB PO SCH (08:35)
[2018-08-09] MEDS: MULTIVITAMINS, THERA 1 EACH TAB PO SCH (08:35)
[2018-08-09] MEDS: ASPIRIN 81 MG PO SCH (08:35)
[2018-08-09] MEDS ORDERED: ALBUTEROL NEBULIZED 2.5 MG/3 ML INHALATION PRN (09:35)
[2018-08-09 11:38] LABS: Glucose,Whole Blood 204 mg/dL (75-99)
[2018-08-09] MEDS: TRIAMCINOLONE 0.1% CREAM 80 GM TUBE TOPICAL SCH (12:12)
[2018-08-09] MEDS: ALBUTEROL NEBULIZED 2.5 MG/3 ML INHALATION SCH ×3 (12:20→19:30)
[2018-08-09] MEDS: HYDROcodone/APAP 7.5-325MG 1 EACH TAB PO PRN (13:07)
--- NOTE | 2018-08-09 15:09 | P.PN ---
Subjective Progress Note Date: 08/09/18 This is a pleasant 72-year-old female patient who follows with Dr. XAVIER Noland in the office. She has a history of coronary artery disease, severe aortic stenosis, status post three-vessel CABG in July 2015 as well as bioprosthetic aortic valve replacement, April of last year she did undergo stenting 3 of the RCA. She also has a history of COPD, chronic diastolic congestive heart failure, osteoporosis, hypertension, diabetes, and chronic renal insufficiency. She presented to the emergency department with complaints of dizziness, lightheadedness, and overall just not feeling herself. She also noted her blood sugar to be elevated. She had no complaints of chest discomfort or shortness of breath. On admission, chest x-ray showed focal pleural thickening in left lower lobe unchanged, no heart failure, could be some loculated pleural fluid with this morning's chest x-ray showing no significant interval change in appearance of the chest. EKG showed sinus bradycardia with a heart rate of [address]-T wave abnormalities. A vase on admission showed an elevated white blood cell count of 16,000, sodium 136, potassium 5.2, BUN 68, creatinine 1.87 and a magnesium of 2.4. Hemoglobin A1c is elevated at 10.7. Troponin negative 1. Pulmonary has been put on consultation for possible community- acquired pneumonia and she is currently on Rocephin and Zithromax. 08/09/2018 Patient was seen and examined this morning, had a significant blood pressure drop, from 108/60-74/40. I did request bilateral ARABELLA hose be placed on the patient. We will also initiate midodrine today. On physical exam, it was noted that patient had significant murmur suggestive of a moderate to severe aortic stenosis.Dr. Medina did review her echocardiogram with Doppler study which revealed a gradient of 78-81 suggesting severe aortic stenosis.a shunt had an echo performed in October 2017 the peak/mean gradient across the aortic valve at that time was 42 mmgHG/ 25 mmgHG. Patient may need to undergo transesophageal echocardiographic study for further evaluation of that aortic valve. Objective - Vital Signs Vital signs: Vital Signs Temp 97.7 F 08/09/18 11:00 Pulse 56 L 08/09/18 12:33 Resp 16 08/09/18 11:48 BP 101/50 06/10/19 11:10 Pulse Ox 100 08/09/18 11:00 Intake & Output 08/08/18 08/09/18 08/09/18 18:59 06:59 18:59 Intake Total 870 360 480 Balance 870 360 480 Weight 85.3 kg 86 kg Intake: Intake, IV Titration 150 Amount Sodium Chloride 0.9% 1, 150 000 ml @ 75 mls/hr IV . [id number] [facility] Rx#:[id number] Oral 720 360 480 Other: # Voids 1 - Exam PHYSICAL EXAMINATION: GENERAL:72-year-old female in no acute distress at the time of my examination HEENT: Head is atraumatic, normocephalic. Pupils equal, round. Sclera anicteric. Conjunctiva are clear. Mucous membranes of the mouth are moist. Neck is supple. There is no elevated jugular venous pressure.no carotid bruit is heard. HEART EXAMINATION: [Heart S1,no audible S2, mid systolic ejection murmur heard] CHEST EXAMINATION:[ Lungs are clear to auscultation and precussion. No chest wall tenderness is noted on palpation or with deep breathing.] ABDOMEN: [ Soft, nontender. Bowel sounds are heard. No organomegaly noted]. EXTREMITIES:[ 2+ peripheral pulses with no evidence of peripheral edema and no calf tenderness noted]. NEUROLOGIC [patient is awake, alert and oriented 3] . - Labs CBC & Chem 7: 08/08/18 05:50 08/08/18 05:50 Labs: Abnormal Lab Results - Last 24 Hours (Table) 08/08/18 08/08/18 08/09/18 Range/Units 16:53 20:58 11:36 POC Glucose (mg/dL) 157 H 247 H 204 H (75-99) mg/dL Microbiology - Last 24 Hours (Table) 08/06/18 21:20 Blood Culture - Preliminary Blood No Growth after 48 hours Assessment and Plan Plan: Assessment: #1 symptoms of dizziness and lightheadedness with near-syncope #2 positive orthostatic hypotension #3 mild bradycardia #4 possible pneumonia #5 CAD with prior CABG and subsequent stenting #6 status post bioprosthetic aortic valve for history of aortic stenosis #7 hyperlipidemia #8 severe aortic stenosis by echo Plan We will request bilateral ARABELLA hose to be put on the patient, we will also start her on some midodrine. We will keep her nothing by mouth at midnight for poss ible transesophageal echocardiographic study tomorrow. DNP note has been reviewed, I agree with a documented findings and plan of care. Patient was seen and examined.
[2018-08-09 16:51] LABS: Glucose,Whole Blood 253 mg/dL (75-99)
[2018-08-09] MEDS: MIDODRINE 5 MG TAB PO SCH (17:18)
--- NOTE | 2018-08-09 17:19 | P.PN ---
Subjective Progress Note Date: 08/09/18 This is a 72-year-old female who presented into the emergency department with lightheadedness and dizziness symptoms started 1 day prior to coming to the hospital she was found to be hypertensive and bradycardic, the blood pressure on arrival was noted to be 90/40 and heart rate is 55 cardiology has been consulted denies any chest pain denies any shortness of breath some confusion present but dissolved denies any bowel or bladder dysfunction denies any seizure-like activity. 08/09/2018 maintained on IV antibiotics, steroids, nebulized bronchodilators. Beta flaquito had been decreased with Procardia discontinued yesterday. Systolic Blood pressure dropped in addition to being positive for orthostatic hypotension .Echo from October 2017 reporting aortic valve 42.24, normally functioning bioprosthetic valve, EF of 55-60%. Renal function and LFTs improving. Objective - Vital Signs Vital signs: Vital Signs Temp 98.2 F 08/09/18 15:18 Pulse 60 08/09/18 16:10 Resp 16 08/09/18 15:19 BP 114/50 08/09/18 15:18 Pulse Ox 100 08/09/18 11:00 Intake & Output 08/08/18 08/09/18 08/09/18 18:59 06:59 18:59 Intake Total 026 525 1181 Output Total 600 Balance 870 360 780 Weight 85.3 kg 86 kg Intake: IV 600 Sodium Chloride 0.9% 1, 600 000 ml @ 75 mls/hr IV . [id number] [facility] Rx#:[id number] Intake, IV Titration 150 Amount Sodium Chloride 0.9% 1, 150 000 ml @ 75 mls/hr IV . [id number] [facility] Rx#:[id number] Oral 720 360 780 Output: Urine 600 Other: # Voids 1 - Exam PHYSICAL EXAM: VITAL SIGNS: As above GENERAL: Sitting up in bed, no acute distress, tired appearing HEENT: Conjunctivae normal. eyes normal. Oral mucosa moist NECK: No JVD. No thyroid enlargement. No LNs CARDIOVASCULAR: S1, S2 regular. Systolic murmur RESPIRATION: Breath sounds diminished in the bases. No rhonchi or crackles. ABDOMEN: Soft, nontender . No guarding. no masses palpable. Bowel sounds heard. LEGS: No edema. no swelling PSYCHIATRY: Alert and oriented ?-3, mood and affect normal. NERVOUS SYSTEM: Cranial N 2-12 grossly normal. Moves all 4 limbs. Diffuse weakness No focal deficits. Strength and sensation grossly intact.. Skin: no lesions, no rash Lymphatic system. No LN neck axilla or groin. - Labs CBC & Chem 7: 08/08/18 05:50 08/08/18 05:50 Labs: Abnormal Lab Results - Last 24 Hours (Table) 08/08/18 08/08/18 08/09/18 Range/Units 16:53 20:58 11:36 POC Glucose (mg/dL) 157 H 247 H 204 H (75-99) mg/dL 08/09/18 Range/Units 16:45 POC Glucose (mg/dL) 253 H (75-99) mg/dL Microbiology - Last 24 Hours (Table) 08/06/18 21:20 Blood Culture - Preliminary Blood No Growth after 48 hours Assessment and Plan Assessment: Left lower lobe pneumonia Leukocytosis Orthostatic hypotension Dizziness and lightheadedness secondary to above Hypertension, history of Bradycardia Uncontrolled diabetes and hyperglycemia Morbid obesity, BMI 33.6 Mild hyperkalemia Stage III renal failure Elevated liver enzymes Plan: Continue on current medication regime ,monitoring and symptomatic treatment. Hydrochlorothiazide, lisinopril placed on hold. Midodrine and thigh- high teds initiated. Maintain nebulized bronchodilators, antibiotics, steroids. Gentle IV fluid hydration. Patient does have history of bioprosthetic aortic valve, cardiology discussing possible ALBERTO to further evaluate valves tomorrow close monitoring of electrolytes and renal function with repeat labs ordered for a.m. The impression and plan of care has been dictated as directed. : I performed a history and examination of this patient, discussed the same with the dictator. I agree with the dictator's note ,documented as a scribe. Any additional findings or plans will be noted.
--- NOTE | 2018-08-09 18:26 | P.PN ---
Subjective Progress Note Date: 08/09/18 Principal diagnosis: Left lower lobe pneumonia, leukocytosis, hypertension, episode of hypotension, bradycardia, dizziness and lightheadedness secondary due to bradycardia and hypotension, uncontrolled diabetes and hyperglycemia, stage III renal failure, chronic elevated liver enzyme, morbid obesity, hyperkalemia 08/09/2018, patient seen eval reexamined during the rounds, patient is getting antibiotics for left lower lobe pneumonia, hemodynamic status stable some transient drop in blood pressure is noted that most time blood pressure noted to be normal range, migraine have been started, echocardiogram revealed significant aortic stenosis which has significantly increase transvalvular gradient, noted that patient patient is being considered for ALBERTO 08/08/2018, seen evaluated examined, labs reviewed medications reviewed, renal functions have improved, her liver enzymes improve sugar is little bit better patient however is still feeling short of breath and congested and on his steroids continue antibiotics This is a 72-year-old female who presented into the emergency department with lightheadedness and dizziness symptoms started 1 day prior to coming to the hospital she was found to be hypertensive and bradycardic, the blood pressure on arrival was noted to be 90/40 and heart rate is 55 cardiology has been consulted denies any chest pain denies any shortness of breath some confusion present but dissolved denies any bowel or bladder dysfunction denies any seizure-like activity Objective - Vital Signs Vital signs: Vital Signs Temp 98.2 F 08/09/18 15:18 Pulse 60 08/09/18 16:10 Resp 16 08/09/18 15:19 BP 114/50 08/09/18 15:18 Pulse Ox 100 08/09/18 11:00 Intake & Output 08/08/18 08/09/18 08/09/18 18:59 06:59 18:59 Intake Total 693 034 4507 Output Total 600 Balance 870 360 780 Weight 85.3 kg 86 kg Intake: IV 600 Sodium Chloride 0.9% 1, 600 000 ml @ 75 mls/hr IV . [id number] Rx#:[id number] Intake, IV Titration 150 Amount Sodium Chloride 0.9% 1, 150 000 ml @ 75 mls/hr IV . [id number] [facility] Rx#:[id number] Oral 720 360 780 Output: Urine 600 Other: # Voids 1 - Exam - Constitutional General appearance: cooperative, disheveled, morbidly obese - EENT Eyes: anicteric sclerae, EOMI, PERRLA, poor dentition, normal appearance ENT: normal oropharynx Ears: bilateral: normal - Neck Neck: normal ROM Carotids: bilateral: upstroke normal, bruit absent Thyroid: bilateral: normal size - Respiratory Respiratory: bilateral: CTA, negative: diminished, dullness, rales, rhonchi, wheezing, prolonged expiration - Cardiovascular Rhythm: regular Heart sounds: abnormal: S1, S2 - Gastrointestinal General gastrointestinal: normal bowel sounds, soft - Neurologic Neurologic: CNII-XII intact - Musculoskeletal Musculoskeletal: gait normal, generalized weakness, strength equal bilaterally - Psychiatric Psychiatric: A&O x's 3, appropriate affect, intact judgment & insight - Labs CBC & Chem 7: 08/08/18 05:50 08/08/18 05:50 Labs: Abnormal Lab Results - Last 24 Hours (Table) 08/08/18 08/09/18 08/09/18 Range/Units 20:58 11:36 16:45 POC Glucose (mg/dL) 247 H 204 H 253 H (75-99) mg/dL Microbiology - Last 24 Hours (Table) 08/06/18 21:20 Blood Culture - Preliminary Blood No Growth after 48 hours Assessment and Plan Assessment: Severe aortic stenosis Left lower lobe pneumonia Leukocytosis Hypertension Bradycardia Dizziness and lightheadedness secondary to above Uncontrolled diabetes and hyperglycemia Morbid obesity Mild hyperkalemia Stage III renal failure Elevated liver enzymes Plan: T EE, transesophageal echocardiography pending per cardiology Broad-spectrum antibiotics with Rocephin and Zithromax Consult cardiology Observe closely bradycardia and hypotension blood pressure and heart rate is stable and improving Rehydration Further recommendations pending plan of care as per clinical response of the patient Time with Patient: Greater than 30
--- NOTE | 2018-08-09 19:29 | ECHOF ---
Referral Reason:hypotension MEASUREMENTS -------- HEIGHT: 160.0 cm WEIGHT: 85.7 kg BP: 127/60 IVSd: 1.6 cm (0.6 - 1.1) LVIDd: 3.4 cm (3.9 - 5.3) LVPWd: 1.6 cm (0.6 - 1.1) IVSs: 2.1 cm LVIDs: 2.1 cm LVPWs: 1.8 cm RVIDd: 3.1 cm (< 3.3) LAESV Index (A-L): 40.94 ml/m Ao Diam: 2.6 cm (2.0 - 3.7) LA Diam: 3.6 cm (2.7 - 3.8) AV Cusp: 1.1 cm (1.5 - 2.6) EPSS: 0.6 cm MV E Tashi: 1.26 m/s MV DecT: 327 ms MV A Tashi: 1.48 m/s MV E/A Ratio: 0.85 AV maxP.73 mmHg AV meanP.24 mmHg AR PHT: 427 ms RAP: 5.00 mmHg RVSP: 52.96 mmHg MV EF SLOPE: 53.65 mm/s (70 - 150) MV EXCURSION: 1.16 cm (> 18.000) FINDINGS -------- Sinus rhythm. This was a technically adequate study. The left ventricular size is normal. There is moderate concentric left ventricular hypertrophy. O verall left ventricular systolic function is normal with, an EF between 55 - 60 %. Septal wall brittney on is delayed and consistent with prior cardiac surgery. The right ventricle is normal in size. Left atrium is severely dilated by volume. The right atrial size is normal. Interatrial and interventricular septum intact. Peak/mean gradient across the valve is 81.73mmHg / 48.24mmHg. Abnormally functioning porcine biopr osthetic aortic valve. There is mild regurgitation of the bioprosthetic aortic valve. There is mo derate-severe stenosis of the bioprosthetic aortic valve. The mitral valve leaflets are mildly thickened. Moderate mitral annular calcification present. Mo derate mitral regurgitation is present. Hdxe-eg-jfteqtra tricuspid regurgitation present. There is moderate pulmonary hypertension. The r ight ventricular systolic pressure, as measured by Doppler, is 52.96mmHg. Trace/mild (physiologic) pulmonic regurgitation. The aortic root size is normal. The inferior vena cava was not well visualized. Echo free space may represent effusion or a pericardial fat pad. The patient has a history of open heart surgery. Patient has a history of valve surgery. CONCLUSIONS -------- 1. Sinus rhythm. 2. This was a technically adequate study. 3. The left ventricular size is normal. 4. There is moderate concentric left ventricular hypertrophy. 5. Overall left ventricular systolic function is normal with, an EF between 55 - 60 %. 6. Septal wall motion is delayed and consistent with prior cardiac surgery. 7. The right ventricle is normal in size. 8. Left atrium is severely dilated by volume. 9. The right atrial size is normal. 10. Interatrial and interventricular septum intact. 11. Peak/mean gradient across the valve is 81.73mmHg / 48.24mmHg. 12. Abnormally functioning porcine bioprosthetic aortic valve. 13. There is mild regurgitation of the bioprosthetic aortic valve. 14. There is moderate-severe stenosis of the bioprosthetic aortic valve. 15. The mitral valve leaflets are mildly thickened. 16. Moderate mitral annular calcification present. 17. Moderate mitral regurgitation is present. 18. Keny-xx-ulynjzmy tricuspid regurgitation present. 19. There is moderate pulmonary hypertension. 20. The right ventricular systolic pressure, as measured by Doppler, is 52.96mmHg. 21. Trace/mild (physiologic) pulmonic regurgitation. 22. The aortic root size is normal. 23. The inferior vena cava was not well visualized. 24. Echo free space may represent effusion or a pericardial fat pad. 25. The patient has a history of open heart surgery. 26. Patient has a history of valve surgery. POLICY AND PLANNING MANAGER: Arpita Mascorro RDCS
[2018-08-09 21:04] LABS: Glucose,Whole Blood 273 mg/dL (75-99)
[2018-08-09] MEDS: MONTELUKAST 10 MG TAB PO SCH (21:30)
[2018-08-09] MEDS: MIRTAZAPINE 15 MG TAB PO SCH (21:30)
[2018-08-09] MEDS: ATORVASTATIN 40 MG TAB PO SCH (21:30)
[2018-08-09] MEDS: INSULIN DETEMIR (LEVEMIR) 100 UNIT/ML SYR SQ SCH (21:31)
[2018-08-10] MEDS: HYDROcodone/APAP 7.5-325MG 1 EACH TAB PO PRN ×3 (00:23→20:55)
[2018-08-10] MEDS: LEVOTHYROXINE 50 MCG TAB PO SCH (05:40)
[2018-08-10 06:36] LABS: Glucose,Whole Blood 175 mg/dL (75-99)
[2018-08-10 07:28] LABS: Basophils % (A) 0 %; Eosinophils # (A) 0.3 k/uL (0-0.7); Eosinophils % (A) 3 %; HCT 31.2 % (34.0-46.0); HGB 9.8 gm/dL (11.4-16.0); Lymphocytes # (A) 1.8 k/uL (1.0-4.8); Lymphocytes % (A) 20 %; MCH 29.1 pg (25.0-35.0); MCHC 31.4 g/dL (31.0-37.0); MCV 92.5 fL (80.0-100.0); Mean Platelet Volume 7.1; Monocytes # (A) 0.4 k/uL (0-1.0); Monocytes % (A) 4 %; Neutrophils # (A) 6.6 k/uL (1.3-7.7); Neutrophils % (A) 72 %; Platelet Count 200 k/uL (150-450); RBC 3.38 m/uL (3.80-5.40); RDW 14.9 % (11.5-15.5); WBC 9.2 k/uL (3.8-10.6)
[2018-08-10 08:25] LABS: Calcium 8.3 mg/dL (8.4-10.2); Potassium 4.7 mmol/L (3.5-5.1)
[2018-08-10] MEDS: INSULIN ASPART (NovoLOG) 100 UNIT/ML VIAL SQ SCH ×4 (08:35→20:55)
[2018-08-10] MEDS: REPAGLINIDE 1 MG TAB PO SCH ×2 (08:35→17:22)
[2018-08-10] MEDS: lamoTRIgine 25 MG TAB PO SCH (08:46)
[2018-08-10] MEDS: MULTIVITAMINS, THERA 1 EACH TAB PO SCH (08:46)
[2018-08-10] MEDS: MIDODRINE 5 MG TAB PO SCH ×3 (08:47→17:22)
[2018-08-10] MEDS: tiZANidine 4 MG TAB PO SCH ×2 (08:47→20:54)
[2018-08-10] MEDS: TRIAMCINOLONE 0.1% CREAM 80 GM TUBE TOPICAL SCH (08:47)
[2018-08-10] MEDS: FERROUS SULFATE 325 MG TAB PO SCH (08:48)
[2018-08-10] MEDS: CLOPIDOGREL 75 MG TAB PO SCH (08:48)
[2018-08-10] MEDS: ASPIRIN 81 MG PO SCH (08:49)
[2018-08-10] MEDS: ATENOLOL 25 MG TAB PO SCH (08:49)
[2018-08-10] MEDS: ALLOPURINOL 100 MG TAB PO SCH (08:49)
[2018-08-10] MEDS: SODIUM CHLORIDE 0.9% 1,000 ML IV SCH ×2 (08:51→20:54)
[2018-08-10] MEDS: ALBUTEROL NEBULIZED 2.5 MG/3 ML INHALATION SCH ×4 (10:00→19:31)
[2018-08-10 12:26] LABS: Glucose,Whole Blood 134 mg/dL (75-99)
[2018-08-10] MEDS: FUROSEMIDE 20 MG TAB PO SCH (13:00)
[2018-08-10 16:58] LABS: Glucose,Whole Blood 266 mg/dL (75-99)
--- NOTE | 2018-08-10 17:02 | P.PN ---
Subjective Progress Note Date: 08/10/18 Principal diagnosis: Left lower lobe pneumonia, leukocytosis, hypertension, episode of hypotension, bradycardia, dizziness and lightheadedness secondary due to bradycardia and hypotension, uncontrolled diabetes and hyperglycemia, stage III renal failure, chronic elevated liver enzyme, morbid obesity, hyperkalemia 08/10/2018, patient seen and evaluated examined awaiting further recommendation from cardiology 08/09/2018, patient seen eval reexamined during the rounds, patient is getting antibiotics for left lower lobe pneumonia, hemodynamic status stable some transient drop in blood pressure is noted that most time blood pressure noted to be normal range, migraine have been started, echocardiogram revealed significant aortic stenosis which has significantly increase transvalvular gradient, noted that patient patient is being considered for ALBERTO 08/08/2018, seen evaluated examined, labs reviewed medications reviewed, renal functions have improved, her liver enzymes improve sugar is little bit better patient however is still feeling short of breath and congested and on his steroids continue antibiotics This is a 72-year-old female who presented into the emergency department with lightheadedness and dizziness symptoms started 1 day prior to coming to the h ospital she was found to be hypertensive and bradycardic, the blood pressure on arrival was noted to be 90/40 and heart rate is 55 cardiology has been consulted denies any chest pain denies any shortness of breath some confusion present but dissolved denies any bowel or bladder dysfunction denies any seizure-like activity Objective - Vital Signs Vital signs: Vital Signs Temp 98.1 F 08/10/18 11:20 Pulse 58 L 08/10/18 15:43 Resp 18 08/10/18 11:20 BP 108/59 08/10/18 11:20 Pulse Ox 97 08/10/18 11:20 Intake & Output 08/09/18 08/10/18 08/10/18 18:59 06:59 18:59 Intake Total 1580 120 150 Output Total 600 0 Balance 980 120 150 Weight 86.4 kg Intake: IV 600 Sodium Chloride 0.9% 1, 600 000 ml @ 75 mls/hr IV . [id number] [facility] Rx#:[id number] Oral 980 120 150 Output: Urine 600 0 Other: # Voids 0 1 # Bowel Movements 0 - Exam - Constitutional General appearance: cooperative, disheveled, morbidly obese - EENT Eyes: anicteric sclerae, EOMI, PERRLA, poor dentition, normal appearance ENT: normal oropharynx Ears: bilateral: normal - Neck Neck: normal ROM Carotids: bilateral: upstroke normal, bruit absent Thyroid: bilateral: normal size - Respiratory Respiratory: bilateral: CTA, negative: diminished, dullness, rales, rhonchi, wheezing, prolonged expiration - Cardiovascular Rhythm: regular Heart sounds: abnormal: S1, S2 - Gastrointestinal General gastrointestinal: normal bowel sounds, soft - Neurologic Neurologic: CNII-XII intact - Musculoskeletal Musculoskeletal: gait normal, generalized weakness, strength equal bilaterally - Psychiatric Psychiatric: A&O x's 3, appropriate affect, intact judgment & insight - Labs CBC & Chem 7: 08/10/18 06:51 08/10/18 06:51 Labs: Abnormal Lab Results - Last 24 Hours (Table) 08/09/18 08/10/18 08/10/18 Range/Units 21:02 06:30 06:51 RBC 3.38 L (3.80-5.40) m/uL Hgb 9.8 L (11.4-16.0) gm/dL Hct 31.2 L (34.0-46.0) % Sodium (137-145) mmol/L BUN (7-17) mg/dL Creatinine (0.52-1.04) mg/dL Glucose (74-99) mg/dL POC Glucose (mg/dL) 273 H 175 H (75-99) mg/dL Calcium (8.4-10.2) mg/dL 08/10/18 08/10/18 08/10/18 Range/Units 06:51 12:15 16:56 RBC (3.80-5.40) m/uL Hgb (11.4-16.0) gm/dL Hct (34.0-46.0) % Sodium 133 L (137-145) mmol/L BUN 27 H (7-17) mg/dL Creatinine 1.14 H (0.52-1.04) mg/dL Glucose 157 H (74-99) mg/dL POC Glucose (mg/dL) 134 H 266 H (75-99) mg/dL Calcium 8.3 L (8.4-10.2) mg/dL Microbiology - Last 24 Hours (Table) 08/06/18 21:20 Blood Culture - Preliminary Blood No Growth after 72 hours Assessment and Plan Assessment: Severe aortic stenosis Left lower lobe pneumonia Leukocytosis Hypertension Bradycardia Dizziness and lightheadedness secondary to above Uncontrolled diabetes and hyperglycemia Morbid obesity Mild hyperkalemia Stage III renal failure Elevated liver enzymes Plan: T EE, transesophageal echocardiography pending per cardiology Broad-spectrum antibiotics with Rocephin and Zithromax Consult cardiology Observe closely bradycardia and hypotension blood pressure and heart rate is stable and improving Rehydration Further recommendations pending plan of care as per clinical response of the patient Time with Patient: Greater than 30
--- NOTE | 2018-08-10 17:21 | P.PN ---
Subjective Progress Note Date: 08/10/18 This is a 72-year-old female who presented into the emergency department with lightheadedness and dizziness symptoms started 1 day prior to coming to the hospital she was found to be hypertensive and bradycardic, the blood pressure on arrival was noted to be 90/40 and heart rate is 55 cardiology has been consulted denies any chest pain denies any shortness of breath some confusion present but dissolved denies any bowel or bladder dysfunction denies any seizure-like activity. 08/09/2018 maintained on IV antibiotics, steroids, nebulized bronchodilators. Beta flaquito had been decreased with Procardia discontinued yesterday. Systolic Blood pressure dropped in addition to being positive for orthostatic hypotension .Echo from October 2017 reporting aortic valve 42.24, normally functioning bioprosthetic valve, EF of 55-60%. Renal function and LFTs improving. 08/10/2017 echo completed yesterday reporting EF 55-60%, peak/mean gradient across the aortic valve is 81.73/48.24, abnormally functioning porcine bioprosthetic aortic valve/moderate to severe stenosis of the bioprosthetic valve. ALBERTO scheduled for tomorrow with cardiology. Yesterday midodrine, yaniv hose ordered, orthostatic hypotension persists. Renal function improving. Objective - Vital Signs Vital signs: Vital Signs Temp 98.1 F 08/10/18 11:20 Pulse 58 L 08/10/18 15:43 Resp 18 08/10/18 11:20 BP 108/59 08/10/18 11:20 Pulse Ox 97 08/10/18 11:20 Intake & Output 08/09/18 08/10/18 08/10/18 18:59 06:59 18:59 Intake Total 1580 120 150 Output Total 600 0 Balance 980 120 150 Weight 86.4 kg Intake: IV 600 Sodium Chloride 0.9% 1, 600 000 ml @ 75 mls/hr IV . [id number] Rx#:[id number] Oral 980 120 150 Output: Urine 600 0 Other: # Voids 0 1 # Bowel Movements 0 - Exam PHYSICAL EXAM: VITAL SIGNS: As above GENERAL: Sitting up in bed, no acute distress, mildly anxious HEENT: Conjunctivae normal. eyes normal. Oral mucosa moist NECK: No JVD. No thyroid enlargement. No LNs CARDIOVASCULAR: S1, S2 regular. Systolic murmur RESPIRATION: Breath sounds diminished in the bases. No rhonchi or crackles. No wheezing. ABDOMEN: Soft, nontender . No guarding. no masses palpable. Bowel sounds heard. LEGS: No edema. no swelling PSYCHIATRY: Alert and oriented ?-3, mood and affect normal. NERVOUS SYSTEM: Cranial N 2-12 grossly normal. Moves all 4 limbs. Diffuse weakness No focal deficits. Strength and sensation grossly intact.. Skin: no lesions, no rash Lymphatic system. No LN neck axilla or groin. - Labs CBC & Chem 7: 08/10/18 06:51 08/10/18 06:51 Labs: Abnormal Lab Results - Last 24 Hours (Table) 08/09/18 08/10/18 08/10/18 Range/Units 21:02 06:30 06:51 RBC 3.38 L (3.80-5.40) m/uL Hgb 9.8 L (11.4-16.0) gm/dL Hct 31.2 L (34.0-46.0) % Sodium (137-145) mmol/L BUN (7-17) mg/dL Creatinine (0.52-1.04) mg/dL Glucose (74-99) mg/dL POC Glucose (mg/dL) 273 H 175 H (75-99) mg/dL Calcium (8.4-10.2) mg/dL 08/10/18 08/10/18 Range/Units 06:51 12:15 RBC (3.80-5.40) m/uL Hgb (11.4-16.0) gm/dL Hct (34.0-46.0) % Sodium 133 L (137-145) mmol/L BUN 27 H (7-17) mg/dL Creatinine 1.14 H (0.52-1.04) mg/dL Glucose 157 H (74-99) mg/dL POC Glucose (mg/dL) 134 H (75-99) mg/dL Calcium 8.3 L (8.4-10.2) mg/dL Microbiology - Last 24 Hours (Table) 08/06/18 21:20 Blood Culture - Preliminary Blood No Growth after 72 hours Assessment and Plan Assessment: 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 Gentle IV fluid hydration. Maintain Midodrine, teds. Continue nebulized bronchodilators, antibiotics, steroids. Nothing by mouth at midnight, ALBERTO tomorrow. Close monitoring of electrolytes and renal function with repeat labs ordered for a.m. The impression and plan of care has been dictated as directed. : I performed a history and examination of this patient, discussed the same with the dictator. I agree with the dictator's note ,documented as a scribe. Any additional findings or plans will be noted.
[2018-08-10 20:49] LABS: Glucose,Whole Blood 281 mg/dL (75-99)
[2018-08-10] MEDS: ATORVASTATIN 40 MG TAB PO SCH (20:54)
[2018-08-10] MEDS: MONTELUKAST 10 MG TAB PO SCH (20:54)
[2018-08-10] MEDS: MIRTAZAPINE 15 MG TAB PO SCH (20:54)
[2018-08-10] MEDS: INSULIN DETEMIR (LEVEMIR) 100 UNIT/ML SYR SQ SCH (20:55)
[2018-08-11] MEDS: REPAGLINIDE 1 MG TAB PO SCH ×2 (05:31→17:52)
[2018-08-11] MEDS: INSULIN ASPART (NovoLOG) 100 UNIT/ML VIAL SQ SCH ×6 (05:31→21:25)
[2018-08-11] MEDS: MIDODRINE 5 MG TAB PO SCH ×2 (05:32→17:51)
[2018-08-11] MEDS: LEVOTHYROXINE 50 MCG TAB PO SCH (05:37)
[2018-08-11 06:15] LABS: Glucose,Whole Blood 203 mg/dL (75-99)
[2018-08-11 06:56] LABS: Basophils % (A) 1 %; Eosinophils # (A) 0.3 k/uL (0-0.7); Eosinophils % (A) 3 %; HCT 30.5 % (34.0-46.0); HGB 10.2 gm/dL (11.4-16.0); Lymphocytes # (A) 1.7 k/uL (1.0-4.8); Lymphocytes % (A) 18 %; MCH 30.9 pg (25.0-35.0); MCHC 33.5 g/dL (31.0-37.0); MCV 92.2 fL (80.0-100.0); Mean Platelet Volume 7.1; Monocytes # (A) 0.3 k/uL (0-1.0); Monocytes % (A) 4 %; Neutrophils # (A) 7.1 k/uL (1.3-7.7); Neutrophils % (A) 75 %; Platelet Count 199 k/uL (150-450); RBC 3.31 m/uL (3.80-5.40); RDW 15.1 % (11.5-15.5); WBC 9.5 k/uL (3.8-10.6)
[2018-08-11 07:11] LABS: Calcium 8.7 mg/dL (8.4-10.2); Potassium 4.5 mmol/L (3.5-5.1)
[2018-08-11] MEDS ORDERED: SODIUM CHLORIDE 0.9% 1,000 ML IV ONE (08:05)
[2018-08-11] MEDS ORDERED: BENZOCAINE SPRAY 1 CAN MUCOUS MEM ONE (08:10)
[2018-08-11] MEDS ORDERED: fentaNYL (PF) 50 MCG/ML 2 ML AMP ONE (08:12)
[2018-08-11] MEDS: MIDAZOLAM (PF) 2 MG/2 ML VIAL IV ONE ×2 (08:14→08:17)
[2018-08-11] MEDS ORDERED: fentaNYL (PF) 50 MCG/ML 2 ML AMP IV ONE (08:14)
[2018-08-11] MEDS: ALBUTEROL NEBULIZED 2.5 MG/3 ML INHALATION SCH ×4 (08:33→20:02)
--- NOTE | 2018-08-11 08:40 | P.TEE ---
Indications for Procedure(s): assess prosthetic aortic valve, rule out aortic stenosis Date of Procedure: 08/11/18 Preoperative Diagnosis: Recurrent episodes of syncope, high gradient across the prosthetic aortic valve Postoperative Diagnosis: The patient to be small profile aortic valve but functioning normally Description of Procedure(s): INDICATION: Assess aortic valve function CONSENT:. Verbal consent was obtained from the patient PROCEDURE: Patient was brought to the lab in a fasting state. Prepped and draped in the usual fashion. The throat was sprayed with Cetacaine. Patient was given IV sedation with 1.5 mg of Versed and 25 mics of fentanyl. A lubricated Omni probe was introduced into the oropharynx and was advanced into the esophagus. Multiple views were obtained. Patient tolerated the procedure well FINDINGS: Prosthetic aortic valve shows some thickening of the leaflets. The opening appeared to be eccentric. By planimetry valve area of about 0.9 cm were obtained. There there is mild trace aortic regurgitation. The mitral valve showed minimal regurgitation. The left atrial appendage seemed to be clipped surgically. The interatrial septum appeared to be intact without any spontaneous shunt. Saline Contrast bubble injection did not reveal any crossing of bubbles across the interatrial septum. Color, pulsed and continuous flow Doppler studies were performed. Left ventricle function appear to be fair IMPRESSION:#1. Small profile aortic valve, but probably functioning normally. #2. Mild mitral regurgitation. #3. Acute appendicitis surgically clipped #4. No PFO #5. Left ventricular function appears to be good PLAN:Continue current medical therapy. Increase activity as tolerated
[2018-08-11] MEDS: ATENOLOL 25 MG TAB PO SCH (11:24)
[2018-08-11] MEDS: lamoTRIgine 25 MG TAB PO SCH (11:24)
[2018-08-11] MEDS: FERROUS SULFATE 325 MG TAB PO SCH (11:24)
[2018-08-11] MEDS: ASPIRIN 81 MG PO SCH (11:24)
[2018-08-11] MEDS: ALLOPURINOL 100 MG TAB PO SCH (11:24)
[2018-08-11] MEDS: FUROSEMIDE 20 MG TAB PO SCH (11:24)
[2018-08-11] MEDS: MULTIVITAMINS, THERA 1 EACH TAB PO SCH (11:24)
[2018-08-11] MEDS: tiZANidine 4 MG TAB PO SCH ×2 (11:24→21:17)
[2018-08-11] MEDS: CLOPIDOGREL 75 MG TAB PO SCH (11:24)
[2018-08-11] MEDS: TRIAMCINOLONE 0.1% CREAM 80 GM TUBE TOPICAL SCH (11:25)
[2018-08-11 12:17] LABS: Glucose,Whole Blood 119 mg/dL (75-99)
[2018-08-11] MEDS: SODIUM CHLORIDE 0.9% 1,000 ML IV SCH ×3 (12:34→22:54)
--- NOTE | 2018-08-11 17:07 | P.PN ---
Subjective Progress Note Date: 08/11/18 This is a 72-year-old female who presented into the emergency department with lightheadedness and dizziness symptoms started 1 day prior to coming to the hospital she was found to be hypertensive and bradycardic, the blood pressure on arrival was noted to be 90/40 and heart rate is 55 cardiology has been consulted denies any chest pain denies any shortness of breath some confusion present but dissolved denies any bowel or bladder dysfunction denies any seizure-like activity. 08/09/2018 maintained on IV antibiotics, steroids, nebulized bronchodilators. Beta flaquito had been decreased with Procardia discontinued yesterday. Systolic Blood pressure dropped in addition to being positive for orthostatic hypotension .Echo from October 2017 reporting aortic valve 42.24, normally functioning bioprosthetic valve, EF of 55-60%. Renal function and LFTs improving. 08/10/2018 echo completed yesterday reporting EF 55-60%, peak/mean gradient across the aortic valve is 81.73/48.24, abnormally functioning porcine bioprosthetic aortic valve/moderate to severe stenosis of the bioprosthetic valve. ALBERTO scheduled for tomorrow with cardiology. Yesterday midodrine, yaniv hose ordered, orthostatic hypotension persists. Renal function improving. 08/11/18 maintained on IV antibiotics, nebulized bronchodilators, breathing improving .Maintaining O2 sats of 97% on room air.NPO, ALBERTO pending this am. M aintained on Midodrin,Negative for orthostatic hypotension this morning. Denies lightheadedness dizziness or focal deficits. Denies chest pain, palpitations or increased shortness of breath. Creatinine 1.20. Objective - Vital Signs Vital signs: Vital Signs Temp 98.3 F 08/11/18 03:37 Pulse 72 08/11/18 08:33 Resp 16 08/11/18 08:33 BP 150/77 08/11/18 08:33 Pulse Ox 96 08/11/18 08:33 Intake & Output 08/10/18 08/11/18 08/11/18 18:59 06:59 18:59 Intake Total 980 610 50 Balance 980 610 50 Weight 85.6 kg Intake: IV 600 610 50 Invasive Line 3 10 Sodium Chloride 0.9% 1, 600 600 000 ml @ 75 mls/hr IV . [id number] [facility] Rx#:[id number] Oral 380 0 Other: Voiding Method Toilet # Voids 2 1 - Exam PHYSICAL EXAM: VITAL SIGNS: As above GENERAL: Sitting up in bed, no acute distress, anxious HEENT: Conjunctivae normal. eyes normal. Oral mucosa moist NECK: No JVD. No thyroid enlargement. No LNs CARDIOVASCULAR: S1, S2 regular. Systolic murmur RESPIRATION: Breath sounds diminished in the bases. No rhonchi or crackles. No wheezing. ABDOMEN: Soft, nontender . No guarding. no masses palpable. Bowel sounds heard. LEGS: No edema. no swelling PSYCHIATRY: Alert and oriented ?-3, mood and affect normal. NERVOUS SYSTEM: Cranial N 2-12 grossly normal. Moves all 4 limbs. Diffuse weakness No focal deficits. Strength and sensation grossly intact.. Skin: no lesions, no rash - Labs CBC & Chem 7: 08/11/18 06:31 08/11/18 06:31 Labs: Abnormal Lab Results - Last 24 Hours (Table) 08/10/18 08/10/18 08/10/18 Range/Units 12:15 16:56 20:46 RBC (3.80-5.40) m/uL Hgb (11.4-16.0) gm/dL Hct (34.0-46.0) % Sodium (137-145) mmol/L BUN (7-17) mg/dL Creatinine (0.52-1.04) mg/dL Glucose (74-99) mg/dL POC Glucose (mg/dL) 134 H 266 H 281 H (75-99) mg/dL 08/11/18 08/11/18 08/11/18 Range/Units 05:53 06:31 06:31 RBC 3.31 L (3.80-5.40) m/uL Hgb 10.2 L (11.4-16.0) gm/dL Hct 30.5 L (34.0-46.0) % Sodium 135 L (137-145) mmol/L BUN 28 H (7-17) mg/dL Creatinine 1.20 H (0.52-1.04) mg/dL Glucose 205 H (74-99) mg/dL POC Glucose (mg/dL) 203 H (75-99) mg/dL Microbiology - Last 24 Hours (Table) 08/06/18 21:20 Blood Culture - Preliminary Blood No Growth after 96 hours Assessment and Plan Assessment: 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 Continue with IV antibiotics, nebulized bronchodilators, gentle IV fluid hydration,Midodrine, teds,. NPO, ALBERTO pending. Close monitoring of electrolytes and renal function with repeat labs ordered for a.m. The impression and plan of care has been dictated as directed. : I performed a history and examination of this patient, discussed the same with the dictator. I agree with the dictator's note ,documented as a scribe. Any additional findings or plans will be noted.
[2018-08-11 17:30] LABS: Glucose,Whole Blood 115 mg/dL (75-99)
[2018-08-11] MEDS: SYMBICORT 160-4.5 MCG INHALER INHALATION SCH (20:02)
[2018-08-11] MEDS: ATORVASTATIN 40 MG TAB PO SCH (21:17)
[2018-08-11] MEDS: MONTELUKAST 10 MG TAB PO SCH (21:17)
[2018-08-11] MEDS: HYDROcodone/APAP 7.5-325MG 1 EACH TAB PO PRN (21:17)
[2018-08-11] MEDS: MIRTAZAPINE 15 MG TAB PO SCH (21:17)
[2018-08-11 21:18] LABS: Glucose,Whole Blood 269 mg/dL (75-99)
[2018-08-11] MEDS: INSULIN DETEMIR (LEVEMIR) 100 UNIT/ML SYR SQ SCH (21:18)
[2018-08-12 00:40] LABS: Glucose,Whole Blood 239 mg/dL (75-99)
[2018-08-12 06:13] LABS: Glucose,Whole Blood 173 mg/dL (75-99)
[2018-08-12 06:21] LABS: Anisocytosis Slight; Basophils % (A) 0 %; Eosinophils # (A) 0.2 k/uL (0-0.7); Eosinophils % (A) 2 %; HCT 31.1 % (34.0-46.0); HGB 10.1 gm/dL (11.4-16.0); Lymphocytes # (A) 1.5 k/uL (1.0-4.8); Lymphocytes % (A) 17 %; MCHC 32.4 g/dL (31.0-37.0); MCV 92.7 fL (80.0-100.0); Mean Platelet Volume 7.7; Monocytes # (A) 0.4 k/uL (0-1.0); Monocytes % (A) 4 %; Neutrophils # (A) 6.7 k/uL (1.3-7.7); Neutrophils % (A) 75 %; Platelet Count 190 k/uL (150-450); RBC 3.35 m/uL (3.80-5.40); RDW 16.2 % (11.5-15.5); WBC 8.9 k/uL (3.8-10.6)
[2018-08-12 06:23] LABS: Calcium 8.7 mg/dL (8.4-10.2); Potassium 4.4 mmol/L (3.5-5.1)
[2018-08-12] MEDS: INSULIN ASPART (NovoLOG) 100 UNIT/ML VIAL SQ SCH ×7 (07:04→21:03)
[2018-08-12] MEDS: REPAGLINIDE 1 MG TAB PO SCH ×2 (07:04→18:46)
[2018-08-12] MEDS: LEVOTHYROXINE 50 MCG TAB PO SCH (07:04)
[2018-08-12] MEDS: MIDODRINE 5 MG TAB PO SCH ×2 (07:04→18:04)
[2018-08-12] MEDS: ASPIRIN 81 MG PO SCH (08:29)
[2018-08-12] MEDS: FERROUS SULFATE 325 MG TAB PO SCH (08:29)
[2018-08-12] MEDS: CLOPIDOGREL 75 MG TAB PO SCH (08:29)
[2018-08-12] MEDS: FUROSEMIDE 20 MG TAB PO SCH (08:30)
[2018-08-12] MEDS: MULTIVITAMINS, THERA 1 EACH TAB PO SCH (08:30)
[2018-08-12] MEDS: tiZANidine 4 MG TAB PO SCH ×2 (08:30→21:03)
[2018-08-12] MEDS: ATENOLOL 25 MG TAB PO SCH (08:30)
[2018-08-12] MEDS: ALLOPURINOL 100 MG TAB PO SCH (08:30)
[2018-08-12] MEDS: lamoTRIgine 25 MG TAB PO SCH (08:30)
[2018-08-12] MEDS: SODIUM CHLORIDE 0.9% 1,000 ML IV SCH ×2 (08:31→14:20)
[2018-08-12] MEDS: TRIAMCINOLONE 0.1% CREAM 80 GM TUBE TOPICAL SCH (08:31)
[2018-08-12] MEDS: ALBUTEROL NEBULIZED 2.5 MG/3 ML INHALATION SCH ×4 (08:52→20:36)
[2018-08-12] MEDS: SYMBICORT 160-4.5 MCG INHALER INHALATION SCH ×2 (08:52→20:36)
[2018-08-12 11:53] LABS: Glucose,Whole Blood 194 mg/dL (75-99)
--- NOTE | 2018-08-12 14:46 | P.PN ---
Subjective Progress Note Date: 08/12/18 This is a pleasant 72-year-old female patient who follows with Dr. XAVIER Noland in the office. She has a history of coronary artery disease, severe aortic stenosis, status post three-vessel CABG in July 2015 as well as bioprosthetic aortic valve replacement, April of last year she did undergo stenting 3 of the RCA. She also has a history of COPD, chronic diastolic congestive heart failure, osteoporosis, hypertension, diabetes, and chronic renal insufficiency. She presented to the emergency department with complaints of dizziness, lightheadedness, and overall just not feeling herself. She also noted her blood sugar to be elevated. She had no complaints of chest discomfort or shortness of breath. On admission, chest x-ray showed focal pleural thickening in left lower lobe unchanged, no heart failure, could be some loculated pleural fluid with this morning's chest x-ray showing no significant interval change in appearance of the chest. EKG showed sinus bradycardia with a heart rate of [address]-T wave abnormalities. A vase on admission showed an elevated white blood cell count of 16,000, sodium 136, potassium 5.2, BUN 68, creatinine 1.87 and a magnesium of 2.4. Hemoglobin A1c is elevated at 10.7. Troponin negative 1. Pulmonary has been put on consultation for possible community- acquired pneumonia and she is currently on Rocephin and Zithromax. 08/09/2018 Patient was seen and examined this morning, had a significant blood pressure drop, from 108/60-74/40. I did request bilateral ARABELLA hose be placed on the patient. We will also initiate midodrine today. On physical exam, it was noted that patient had significant murmur suggestive of a moderate to severe aortic stenosis.Dr. Medina did review her echocardiogram with Doppler study which revealed a gradient of 78-81 suggesting severe aortic stenosis.a shunt had an echo performed in October 2017 the peak/mean gradient across the aortic valve at that time was 42 mmgHG/ 25 mmgHG. Patient may need to undergo transesophageal echocardiographic study for further evaluation of that aortic valve. 08/12/2018 patient underwent a transesophageal echocardiographic study yesterday which revealed a small profile aortic valve but probably functioning normally. Mild mitral regurg atrial appendage surgically clipped, no PFO, left ventricular function appears good. We will continue current medical therapy. Patient was seen and examined this morning, feels well, quite eager to be discharged home today. Hemodynamically stable. Objective - Vital Signs Vital signs: Vital Signs Temp 98.9 F 08/12/18 11:48 Pulse 65 08/12/18 12:21 Resp 16 08/12/18 11:48 BP 130/61 08/12/18 11:48 Pulse Ox 96 08/12/18 11:48 Intake & Output 08/11/18 08/12/18 08/12/18 18:59 06:59 18:59 Intake Total 250 1200 Output Total 400 Balance 250 800 Weight 85.5 kg 85.5 kg Intake: IV 50 600 Sodium Chloride 0.9% 1, 600 000 ml @ 75 mls/hr IV . [id number] Rx#:[id number] Oral 200 600 Output: Urine 400 Other: Voiding Method Toilet Toilet # Voids 1 1 - Exam PHYSICAL EXAMINATION: GENERAL:72-year-old female in no acute distress at the time of my examination HEENT: Head is atraumatic, normocephalic. Pupils equal, round. Sclera anicteric. Conjunctiva are clear. Mucous membranes of the mouth are moist. Nec k is supple. There is no elevated jugular venous pressure.no carotid bruit is heard. HEART EXAMINATION: [Heart S1,no audible S2, mid systolic ejection murmur heard] CHEST EXAMINATION:[ Lungs are clear to auscultation and precussion. No chest wall tenderness is noted on palpation or with deep breathing.] ABDOMEN: [ Soft, nontender. Bowel sounds are heard. No organomegaly noted]. EXTREMITIES:[ 2+ peripheral pulses with no evidence of peripheral edema and no calf tenderness noted]. NEUROLOGIC [patient is awake, alert and oriented 3] . - Labs CBC & Chem 7: 08/12/18 05:54 08/12/18 05:54 Labs: Abnormal Lab Results - Last 24 Hours (Table) 08/11/18 08/11/18 08/12/18 Range/Units 17:19 21:17 00:13 RBC (3.80-5.40) m/uL Hgb (11.4-16.0) gm/dL Hct (34.0-46.0) % RDW (11.5-15.5) % Sodium (137-145) mmol/L BUN (7-17) mg/dL Creatinine (0.52-1.04) mg/dL Glucose (74-99) mg/dL POC Glucose (mg/dL) 115 H 269 H 239 H (75-99) mg/dL 08/12/18 08/12/18 08/12/18 Range/Units 05:54 05:54 06:10 RBC 3.35 L (3.80-5.40) m/uL Hgb 10.1 L (11.4-16.0) gm/dL Hct 31.1 L (34.0-46.0) % RDW 16.2 H (11.5-15.5) % Sodium 135 L (137-145) mmol/L BUN 23 H (7-17) mg/dL Creatinine 1.13 H (0.52-1.04) mg/dL Glucose 172 H (74-99) mg/dL POC Glucose (mg/dL) 173 H (75-99) mg/dL 08/12/18 Range/Units 11:52 RBC (3.80-5.40) m/uL Hgb (11.4-16.0) gm/dL Hct (34.0-46.0) % RDW (11.5-15.5) % Sodium (137-145) mmol/L BUN (7-17) mg/dL Creatinine (0.52-1.04) mg/dL Glucose (74-99) mg/dL POC Glucose (mg/dL) 194 H (75-99) mg/dL Microbiology - Last 24 Hours (Table) 08/06/18 21:20 Blood Culture - Preliminary Blood No Growth after 120 hours Assessment and Plan Plan: Assessment: #1 symptoms of dizziness and lightheadedness with near-syncope #2 positive orthostatic hypotension #3 mild bradycardia #4 possible pneumonia #5 CAD with prior CABG and subsequent stenting #6 status post bioprosthetic aortic valve for history of aortic stenosis #7 hyperlipidemia #8 severe aortic stenosis by echo Plan patient may be discharged home today from cardiology's perspective, we'll make her a follow-up appointment to see Dr. XAVIER Noland in the office post discharge. DNP note has been reviewed, I agree with a documented findings and plan of care. Patient was seen and examined.
[2018-08-12 17:10] LABS: Glucose,Whole Blood 226 mg/dL (75-99)
[2018-08-12 20:00] VITALS: RESP 16
[2018-08-12 20:57] LABS: Glucose,Whole Blood 189 mg/dL (75-99)
[2018-08-12] MEDS: MIRTAZAPINE 15 MG TAB PO SCH (21:03)
[2018-08-12] MEDS: MONTELUKAST 10 MG TAB PO SCH (21:03)
[2018-08-12] MEDS: ATORVASTATIN 40 MG TAB PO SCH (21:03)
[2018-08-12] MEDS: INSULIN DETEMIR (LEVEMIR) 100 UNIT/ML SYR SQ SCH (21:04)
[2018-08-12] MEDS: HYDROcodone/APAP 7.5-325MG 1 EACH TAB PO PRN (22:46)
[2018-08-13] MEDS: MIDODRINE 5 MG TAB PO SCH (06:54)
[2018-08-13] MEDS: LEVOTHYROXINE 50 MCG TAB PO SCH (06:54)
[2018-08-13] MEDS: REPAGLINIDE 1 MG TAB PO SCH (06:54)
[2018-08-13 07:15] LABS: Glucose,Whole Blood 180 mg/dL (75-99)
[2018-08-13] MEDS: SYMBICORT 160-4.5 MCG INHALER INHALATION SCH (07:25)
[2018-08-13] MEDS: ALBUTEROL NEBULIZED 2.5 MG/3 ML INHALATION SCH ×3 (07:25→16:07)
[2018-08-13 07:28] LABS: Basophils % (A) 1 %; Eosinophils # (A) 0.2 k/uL (0-0.7); Eosinophils % (A) 3 %; HCT 36.6 % (34.0-46.0); HGB 11.3 gm/dL (11.4-16.0); Lymphocytes # (A) 1.7 k/uL (1.0-4.8); Lymphocytes % (A) 21 %; MCH 29.5 pg (25.0-35.0); MCHC 30.9 g/dL (31.0-37.0); MCV 95.4 fL (80.0-100.0); Mean Platelet Volume 7.3; Monocytes # (A) 0.4 k/uL (0-1.0); Monocytes % (A) 5 %; Neutrophils # (A) 5.7 k/uL (1.3-7.7); Neutrophils % (A) 69 %; Platelet Count 202 k/uL (150-450); RBC 3.84 m/uL (3.80-5.40); RDW 14.9 % (11.5-15.5); WBC 8.3 k/uL (3.8-10.6)
[2018-08-13 07:41] LABS: Calcium 9.2 mg/dL (8.4-10.2); Potassium 4.6 mmol/L (3.5-5.1)
[2018-08-13] MEDS: lamoTRIgine 25 MG TAB PO SCH (07:53)
[2018-08-13] MEDS: tiZANidine 4 MG TAB PO SCH (07:53)
[2018-08-13] MEDS: FUROSEMIDE 20 MG TAB PO SCH (07:53)
[2018-08-13] MEDS: ASPIRIN 81 MG PO SCH (07:53)
[2018-08-13] MEDS: MULTIVITAMINS, THERA 1 EACH TAB PO SCH (07:53)
[2018-08-13] MEDS: ALLOPURINOL 100 MG TAB PO SCH (07:53)
[2018-08-13] MEDS: FERROUS SULFATE 325 MG TAB PO SCH (07:54)
[2018-08-13] MEDS: ATENOLOL 25 MG TAB PO SCH (07:54)
[2018-08-13] MEDS: INSULIN ASPART (NovoLOG) 100 UNIT/ML VIAL SQ SCH ×4 (07:54→12:11)
[2018-08-13] MEDS: CLOPIDOGREL 75 MG TAB PO SCH (07:54)
[2018-08-13] MEDS: TRIAMCINOLONE 0.1% CREAM 80 GM TUBE TOPICAL SCH (07:55)
[2018-08-13] MEDS: SODIUM CHLORIDE 0.9% 1,000 ML IV SCH ×2 (07:59→12:11)
[2018-08-13 11:38] LABS: Glucose,Whole Blood 209 mg/dL (75-99)
[2018-08-13 12:24] VITALS: BP 137/64; PULSE 60; TEMP 98.6
--- NOTE | 2018-08-13 15:12 | P.PN ---
Subjective Progress Note Date: 08/11/18 Principal diagnosis: Left lower lobe pneumonia, leukocytosis, hypertension, episode of hypotension, bradycardia, dizziness and lightheadedness secondary due to bradycardia and hypotension, uncontrolled diabetes and hyperglycemia, stage III renal failure, chronic elevated liver enzyme, morbid obesity, hyperkalemia 08/11/2018, patient seen eval reexamined during the rounds patient is status post ALBERTO results and reports are reviewed, patient remains on IV antibiotics breathing comfortably saturation is stable patient due to orthostatic hypertension has been placed on midodrine 08/10/2018, patient seen and evaluated examined awaiting further recommendation from cardiology 08/09/2018, patient seen eval reexamined during the rounds, patient is getting antibiotics for left lower lobe pneumonia, hemodynamic status stable some transient drop in blood pressure is noted that most time blood pressure noted to be normal range, migraine have been started, echocardiogram revealed significant aortic stenosis which has significantly increase transvalvular gradient, noted that patient patient is being considered for ALBERTO 08/08/2018, seen evaluated examined, labs reviewed medications reviewed, renal functions have improved, her liver enzymes improve sugar is little bit better patient however is still feeling short of breath and congested and on his steroids continue antibiotics This is a 72-year-old female who presented into the emergency department with lightheadedness and dizziness symptoms started 1 day prior to coming to the hospital she was found to be hypertensive and bradycardic, the blood pressure on arrival was noted to be 90/40 and heart rate is 55 cardiology has been consulted denies any chest pain denies any shortness of breath some confusion present but dissolved denies any bowel or bladder dysfunction denies any seizure-like activity Objective - Vital Signs Vital signs: Vital Signs Temp 97.4 F L 08/11/18 16:00 Pulse 58 L 08/11/18 16:11 Resp 16 08/11/18 16:11 BP 138/65 08/11/18 16:00 Pulse Ox 97 08/11/18 16:00 Intake & Output 08/11/18 08/11/18 08/12/18 06:59 18:59 06:59 Intake Total 610 250 Balance 610 250 Weight 85.6 kg Intake: IV 610 50 Invasive Line 3 10 Sodium Chloride 0.9% 1, 600 000 ml @ 75 mls/hr IV . [id number] [facility] Rx#:[id number] Oral 200 Other: Voiding Method Toilet # Voids 1 1 - Exam - Constitutional General appearance: cooperative, disheveled, morbidly obese - EENT Eyes: anicteric sclerae, EOMI, PERRLA, poor dentition, normal appearance ENT: normal oropharynx Ears: bilateral: normal - Neck Neck: normal ROM Carotids: bilateral: upstroke normal, bruit absent Thyroid: bilateral: normal size - Respiratory Respiratory: bilateral: CTA, negative: diminished, dullness, rales, rhonchi, wheezing, prolonged expiration - Cardiovascular Rhythm: regular Heart sounds: abnormal: S1, S2 - Gastrointestinal General gastrointestinal: normal bowel sounds, soft - Neurologic Neurologic: CNII-XII intact - Musculoskeletal Musculoskeletal: gait normal, generalized weakness, strength equal bilaterally - Psychiatric Psychiatric: A&O x's 3, appropriate affect, intact judgment & insight - Labs CBC & Chem 7: 08/13/18 06:48 08/13/18 06:48 Labs: Abnormal Lab Results - Last 24 Hours (Table) 08/10/18 08/11/18 08/11/18 Range/Units 20:46 05:53 06:31 RBC 3.31 L (3.80-5.40) m/uL Hgb 10.2 L (11.4-16.0) gm/dL Hct 30.5 L (34.0-46.0) % Sodium (137-145) mmol/L BUN (7-17) mg/dL Creatinine (0.52-1.04) mg/dL Glucose (74-99) mg/dL POC Glucose (mg/dL) 281 H 203 H (75-99) mg/dL 08/11/18 08/11/18 08/11/18 Range/Units 06:31 12:07 17:19 RBC (3.80-5.40) m/uL Hgb (11.4-16.0) gm/dL Hct (34.0-46.0) % Sodium 135 L (137-145) mmol/L BUN 28 H (7-17) mg/dL Creatinine 1.20 H (0.52-1.04) mg/dL Glucose 205 H (74-99) mg/dL POC Glucose (mg/dL) 119 H 115 H (75-99) mg/dL Microbiology - Last 24 Hours (Table) 06/07/19 21:20 Blood Culture - Preliminary Blood No Growth after 96 hours Assessment and Plan Assessment: Severe aortic stenosis, but functioning normal cardiology feels to monitor and observe and maximum therapy Left lower lobe pneumonia Leukocytosis Hypertension Bradycardia Dizziness and lightheadedness secondary to above Uncontrolled diabetes and hyperglycemia Morbid obesity Mild hyperkalemia Stage III renal failure Elevated liver enzymes Plan: T EE, transesophageal echocardiography results reviewed Broad-spectrum antibiotics with Rocephin and Zithromax Noted cardiology recommendation Observe closely bradycardia and hypotension blood pressure and heart rate is stable and improving Rehydration Further recommendations pending plan of care as per clinical response of the patient Time with Patient: Greater than 30
--- NOTE | 2018-08-13 15:14 | P.PN ---
Subjective Progress Note Date: 08/12/18 Principal diagnosis: Left lower lobe pneumonia, leukocytosis, hypertension, episode of hypotension, bradycardia, dizziness and lightheadedness secondary due to bradycardia and hypotension, uncontrolled diabetes and hyperglycemia, stage III renal failure, chronic elevated liver enzyme, morbid obesity, hyperkalemia 08/12/2018, patient seen eval reexamined during the rounds overall breathing better cough congestion shortness breath is improved able to ambulate findings on ALBERTO have been reviewed patient is being planned for possible discharge in next 24 hours 08/11/2018, patient seen eval reexamined during the rounds patient is status post ALBERTO results and reports are reviewed, patient remains on IV antibiotics breathing comfortably saturation is stable patient due to orthostatic hypertension has been placed on midodrine 08/10/2018, patient seen and evaluated examined awaiting further recommendation from cardiology 08/09/2018, patient seen eval reexamined during the rounds, patient is getting antibiotics for left lower lobe pneumonia, hemodynamic status stable some transient drop in blood pressure is noted that most time blood pressure noted to be normal range, migraine have been started, echocardiogram revealed significant aortic stenosis which has significantly increase transvalvular gradient, noted that patient patient is being considered for ALBERTO 08/08/2018, seen evaluated examined, labs reviewed medications reviewed, renal functions have improved, her liver enzymes improve sugar is little bit better patient however is still feeling short of breath and congested and on his steroids continue antibiotics This is a 72-year-old female who presented into the emergency department with lightheadedness and dizziness symptoms started 1 day prior to coming to the hospital she was found to be hypertensive and bradycardic, the blood pressure on arrival was noted to be 90/40 and heart rate is 55 cardiology has been consulted denies any chest pain denies any shortness of breath some confusion present but dissolved denies any bowel or bladder dysfunction denies any seizure-like activity Objective - Vital Signs Vital signs: Vital Signs Temp 98.6 F 08/12/18 15:54 Pulse 68 08/12/18 16:29 Resp 14 08/12/18 15:56 BP 162/71 08/12/18 15:54 Pulse Ox 98 08/12/18 15:54 Intake & Output 08/11/18 08/12/18 08/12/18 18:59 06:59 18:59 Intake Total 250 1200 Output Total 400 Balance 250 800 Weight 85.5 kg 85.5 kg Intake: IV 50 600 Sodium Chloride 0.9% 1, 600 000 ml @ 75 mls/hr IV . [id number] [facility] Rx#:[id number] Oral 200 600 Output: Urine 400 Other: Voiding Method Toilet Toilet # Voids 1 1 - Exam - Constitutional General appearance: cooperative, disheveled, morbidly obese - EENT Eyes: anicteric sclerae, EOMI, PERRLA, poor dentition, normal appearance ENT: normal oropharynx Ears: bilateral: normal - Neck Neck: normal ROM Carotids: bilateral: upstroke normal, bruit absent Thyroid: bilateral: normal size - Respiratory Respiratory: bilateral: CTA, negative: diminished, dullness, rales, rhonchi, wheezing, prolonged expiration - Cardiovascular Rhythm: regular Heart sounds: abnormal: S1, S2 - Gastrointestinal General gastrointestinal: normal bowel sounds, soft - Neurologic Neurologic: CNII-XII intact - Musculoskeletal Musculoskeletal: gait normal, generalized weakness, strength equal bilaterally - Psychiatric Psychiatric: A&O x's 3, appropriate affect, intact judgment & insight - Labs CBC & Chem 7: 08/13/18 06:48 08/13/18 06:48 Labs: Abnormal Lab Results - Last 24 Hours (Table) 08/11/18 08/11/18 08/12/18 Range/Units 17:19 21:17 00:13 RBC (3.80-5.40) m/uL Hgb (11.4-16.0) gm/dL Hct (34.0-46.0) % RDW (11.5-15.5) % Sodium (137-145) mmol/L BUN (7-17) mg/dL Creatinine (0.52-1.04) mg/dL Glucose (74-99) mg/dL POC Glucose (mg/dL) 115 H 269 H 239 H (75-99) mg/dL 08/12/18 08/12/18 08/12/18 Range/Units 05:54 05:54 06:10 RBC 3.35 L (3.80-5.40) m/uL Hgb 10.1 L (11.4-16.0) gm/dL Hct 31.1 L (34.0-46.0) % RDW 16.2 H (11.5-15.5) % Sodium 135 L (137-145) mmol/L BUN 23 H (7-17) mg/dL Creatinine 1.13 H (0.52-1.04) mg/dL Glucose 172 H (74-99) mg/dL POC Glucose (mg/dL) 173 H (75-99) mg/dL 08/12/18 Range/Units 11:52 RBC (3.80-5.40) m/uL Hgb (11.4-16.0) gm/dL Hct (34.0-46.0) % RDW (11.5-15.5) % Sodium (137-145) mmol/L BUN (7-17) mg/dL Creatinine (0.52-1.04) mg/dL Glucose (74-99) mg/dL POC Glucose (mg/dL) 194 H (75-99) mg/dL Microbiology - Last 24 Hours (Table) 08/06/18 21:20 Blood Culture - Preliminary Blood No Growth after 120 hours Assessment and Plan Assessment: Severe aortic stenosis, but functioning normal cardiology feels to monitor and observe and maximum therapy Left lower lobe pneumonia Leukocytosis Hypertension Bradycardia Dizziness and lightheadedness secondary to above Uncontrolled diabetes and hyperglycemia Morbid obesity Mild hyperkalemia Stage III renal failure Elevated liver enzymes Plan: T EE, transesophageal echocardiography results reviewed Broad-spectrum antibiotics with Rocephin and Zithromax Noted cardiology recommendation Observe closely bradycardia and hypotension blood pressure and heart rate is stable and improving Rehydration Further recommendations pending plan of care as per clinical response of the patient Time with Patient: Greater than 30
--- NOTE | 2018-08-13 15:16 | P.PN ---
Subjective Progress Note Date: 08/13/18 Principal diagnosis: Left lower lobe pneumonia, leukocytosis, hypertension, episode of hypotension, bradycardia, dizziness and lightheadedness secondary due to bradycardia and hypotension, uncontrolled diabetes and hyperglycemia, stage III renal failure, chronic elevated liver enzyme, morbid obesity, hyperkalemia 08/13/2018, patient has been cleared from cardiology standpoint breathing comfortably no cough congestion shortness of breath is present able to ambulate patient is being planned for discharge later on today meds reviewed laboratory data reviewed 08/12/2018, patient seen eval reexamined during the rounds overall breathing better cough congestion shortness breath is improved able to ambulate findings on ALBERTO have been reviewed patient is being planned for possible discharge in next 24 hours 08/11/2018, patient seen eval reexamined during the rounds patient is status post ALBERTO results and reports are reviewed, patient remains on IV antibiotics breathing comfortably saturation is stable patient due to orthostatic hypertension has been placed on midodrine 08/10/2018, patient seen and evaluated examined awaiting further recommendation from cardiology 08/09/2018, patient seen eval reexamined during the rounds, patient is getting antibiotics for left lower lobe pneumonia, hemodynamic status stable some transient drop in blood pressure is noted that most time blood pressure noted to be normal range, migraine have been started, echocardiogram revealed significant aortic stenosis which has significantly increase transvalvular gradient, noted that patient patient is being considered for ALBERTO 08/08/2018, seen evaluated examined, labs reviewed medications reviewed, renal functions have improved, her liver enzymes improve sugar is little bit bet ter patient however is still feeling short of breath and congested and on his steroids continue antibiotics This is a 72-year-old female who presented into the emergency department with lightheadedness and dizziness symptoms started 1 day prior to coming to the hospital she was found to be hypertensive and bradycardic, the blood pressure on arrival was noted to be 90/40 and heart rate is 55 cardiology has been consulted denies any chest pain denies any shortness of breath some confusion present but dissolved denies any bowel or bladder dysfunction denies any seizure-like activity Objective - Vital Signs Vital signs: Vital Signs Temp 98.6 F 08/13/18 12:00 Pulse 60 08/13/18 12:00 Resp 16 08/13/18 12:00 BP 137/64 08/13/18 12:00 Pulse Ox 98 08/13/18 12:00 Intake & Output 08/12/18 08/13/18 08/13/18 18:59 06:59 18:59 Intake Total 1560 357 720 Output Total 400 Balance 1160 357 720 Weight 85.5 kg 81.5 kg Intake: IV 600 Sodium Chloride 0.9% 1, 600 000 ml @ 75 mls/hr IV . [id number] Rx#:[id number] Oral 960 357 720 Output: Urine 400 Other: Voiding Method Toilet Toilet Toilet # Voids 2 - Exam - Constitutional General appearance: cooperative, disheveled, morbidly obese - EENT Eyes: anicteric sclerae, EOMI, PERRLA, poor dentition, normal appearance ENT: normal oropharynx Ears: bilateral: normal - Neck Neck: normal ROM Carotids: bilateral: upstroke normal, bruit absent Thyroid: bilateral: normal size - Respiratory Respiratory: bilateral: CTA, negative: diminished, dullness, rales, rhonchi, wheezing, prolonged expiration - Cardiovascular Rhythm: regular Heart sounds: abnormal: S1, S2 - Gastrointestinal General gastrointestinal: normal bowel sounds, soft - Neurologic Neurologic: CNII-XII intact - Musculoskeletal Musculoskeletal: gait normal, generalized weakness, strength equal bilaterally - Psychiatric Psychiatric: A&O x's 3, appropriate affect, intact judgment & insight - Labs CBC & Chem 7: 08/13/18 06:48 08/13/18 06:48 Labs: Abnormal Lab Results - Last 24 Hours (Table) 08/12/18 08/12/18 08/13/18 Range/Units 16:36 20:54 06:48 Hgb 11.3 L (11.4-16.0) gm/dL MCHC 30.9 L (31.0-37.0) g/dL BUN (7-17) mg/dL Creatinine (0.52-1.04) mg/dL Glucose (74-99) mg/dL POC Glucose (mg/dL) 226 H 189 H (75-99) mg/dL 08/13/18 08/13/18 08/13/18 Range/Units 06:48 07:14 11:36 Hgb (11.4-16.0) gm/dL MCHC (31.0-37.0) g/dL BUN 24 H (7-17) mg/dL Creatinine 1.15 H (0.52-1.04) mg/dL Glucose 176 H (74-99) mg/dL POC Glucose (mg/dL) 180 H 209 H (75-99) mg/dL Microbiology - Last 24 Hours (Table) 08/06/18 21:20 Blood Culture - Final Blood No Growth after 144 hours Assessment and Plan Assessment: Severe aortic stenosis, but functioning normal cardiology feels to monitor and observe and maximum therapy Left lower lobe pneumonia Leukocytosis Hypertension Bradycardia Dizziness and lightheadedness secondary to above Uncontrolled diabetes and hyperglycemia Morbid obesity Mild hyperkalemia Stage III renal failure Elevated liver enzymes Plan: T EE, transesophageal echocardiography results reviewed Broad-spectrum antibiotics with Rocephin and Zithromax, patient can be discharged on oral antibiotics Noted cardiology recommendation Observe closely bradycardia and hypotension blood pressure and heart rate is stable and improving Rehydration Further recommendations pending plan of care as per clinical response of the patient Time with Patient: Greater than 30
--- NOTE | 2018-08-13 15:21 | P.DS ---
Providers Date of admission: 08/06/18 23:18 Attending physician: Eric Aguirre Consults: 08/07/18 07:03 Consult Physician Routine Consulting Provider: Herberth Jimenez Consult Reason/Comments: cap/hypotension Do you want consulting provider notified?: Yes 08/07/18 13:24 Consult Physician Routine Consulting Provider: Kb Sears Consult Reason/Comments: bradycardia, hypotension Do you want consulting provider notified?: Yes Primary care physician: [facility] Course: See progress note Pertinent Studies: Echocardiogram, EKG, chest x-ray, ALBERTO Patient Condition at Discharge: Stable Plan - Discharge Summary New Discharge Prescriptions: New Midodrine [ProAmatine] 2.5 mg PO AC-BID #60 tab No Action Lisinopril [Zestril] 5 mg PO DAILY tab INSULIN LISPRO (humaLOG) [humaLOG] See Protocol SQ ACHS Levothyroxine Sodium [Synthroid] 50 mcg PO DAILY Mirtazapine [Remeron] 15 mg PO HS lamoTRIgine [LaMICtal] 25 mg PO DAILY Montelukast [Singulair] 10 mg PO HS Atorvastatin [Lipitor] 40 mg PO HS Aspirin 81 mg PO DAILY HYDROcodone/APAP 7.5-325MG [[place] 7.5-325] 1 tab PO Q6HR PRN PRN Reason: pain Albuterol Nebulized [Ventolin Nebulized] 2.5 mg INHALATION RT-Q4H PRN PRN Reason: Shortness Of Breath Clopidogrel [Plavix] 75 mg PO DAILY tab Nitroglycerin Sl Tabs [Nitrostat] 0.4 mg SUBLINGUAL Q5M PRN #25 tab PRN Reason: Chest Pain NIFEdipine XL [Procardia XL] 30 mg PO DAILY tab.er.24 Repaglinide [Prandin] 1 mg PO BID tiZANidine [Zanaflex] 4 mg PO BID rOPINIRole HCL [Requip] 0.5 mg PO HS Hydrochlorothiazide [Hydrodiuril] 25 mg PO DAILY Furosemide [Lasix] 20 mg PO DAILY Allopurinol [Zyloprim] 100 mg PO DAILY Ergocalciferol [Vitamin D2] 50,000 unit PO Q7D Triamcinolone 0.1% Cream [Kenalog 0.1% Cream] 1 gram TOPICAL DAILY Ferrous Sulfate [Feosol] 325 mg PO DAILY Insulin Glargine,Hum.rec.anlog [Carlitojaron Jackiegama] 35 units SQ DAILY Multivitamins, Thera [Multivitamin (formulary)] 1 tab PO DAILY Atenolol [Tenormin] 25 mg PO BID Discharge Medication List Lisinopril [Zestril] 5 mg PO DAILY tab 07/19/15 [Rx] INSULIN LISPRO (humaLOG) [humaLOG] See Protocol SQ ACHS 07/29/15 [History] Atorvastatin [Lipitor] 40 mg PO HS 04/15/16 [History] Levothyroxine Sodium [Synthroid] 50 mcg PO DAILY 04/15/16 [History] Mirtazapine [Remeron] 15 mg PO HS 04/15/16 [History] Montelukast [Singulair] 10 mg PO HS 04/15/16 [History] lamoTRIgine [LaMICtal] 25 mg PO DAILY 04/15/16 [History] Aspirin 81 mg PO DAILY 09/22/16 [History] HYDROcodone/APAP 7.5-325MG [[place] 7.5-325] 1 tab PO Q6HR PRN 09/23/16 [History] Albuterol Nebulized [Ventolin Nebulized] 2.5 mg INHALATION RT-Q4H PRN 10/03/16 [History] Clopidogrel [Plavix] 75 mg PO DAILY tab 08/05/17 [Rx] Nitroglycerin Sl Tabs [Nitrostat] 0.4 mg SUBLINGUAL Q5M PRN #25 tab 08/05/17 [Rx] NIFEdipine XL [Procardia XL] 30 mg PO DAILY tab.er.24 11/19/17 [Rx] Allopurinol [Zyloprim] 100 mg PO DAILY 08/06/18 [History] Furosemide [Lasix] 20 mg PO DAILY 08/06/18 [History] Hydrochlorothiazide [Hydrodiuril] 25 mg PO DAILY 08/06/18 [History] Repaglinide [Prandin] 1 mg PO BID 08/06/18 [History] rOPINIRole HCL [Requip] 0.5 mg PO HS 08/06/18 [History] tiZANidine [Zanaflex] 4 mg PO BID 08/06/18 [History] Atenolol [Tenormin] 25 mg PO BID 08/07/18 [History] Ergocalciferol [Vitamin D2] 50,000 unit PO Q7D 08/07/18 [History] Ferrous Sulfate [Feosol] 325 mg PO DAILY 08/07/18 [History] Insulin Glargine,Hum.rec.anlog [Toujeo Solostar] 35 units SQ DAILY 08/07/18 [History] Multivitamins, Thera [Multivitamin (formulary)] 1 tab PO DAILY 08/07/18 [History] Triamcinolone 0.1% Cream [Kenalog 0.1% Cream] 1 gram TOPICAL DAILY 08/07/18 [History] Midodrine [ProAmatine] 2.5 mg PO AC-BID #60 tab 08/12/18 [Rx] Follow up Appointment(s)/Referral(s): Jason Noland MD [STAFF PHYSICIAN] - 08/23/18 9:30 am (Thursday) Eric Aguirre MD [Primary Care Provider] - 08/16/18 10:15 am (Thursday) Herberth Jimenez MD [STAFF PHYSICIAN] - 08/20/18 10:45 am (Thursday) Patient Instructions/Handouts: Hypotension (DC), Bradycardia (DC), Pneumonia (DC)
[2018-08-13] MEDS ORDERED: INSULIN DETEMIR (LEVEMIR) 100 UNIT/ML SYR SQ SCH (21:00)
== END 2018-08-13 16:42 | disposition home or self-care (01) | DRG 314 ==
LOC: EC 19:35 → 3SCARD 23:18
PROVIDERS: ADMIT Family Medicine; ATTEND Family Medicine
PROC: B24BZZ4 Ultrasonography of Heart with Aorta, Transesophageal (ICD-10-PCS; principal; 2018-08-11 08:05)
DX: T82.857A Stenosis of other cardiac prosthetic devices, implants and grafts, initial encounter (principal); J18.9 Pneumonia, unspecified organism; I13.0 Hypertensive heart and chronic kidney disease with heart failure and stage 1 through stage 4 chronic kidney disease, or unspecified chronic kidney disease; I50.32 Chronic diastolic (congestive) heart failure; J44.0 Chronic obstructive pulmonary disease with (acute) lower respiratory infection; E11.22 Type 2 diabetes mellitus with diabetic chronic kidney disease; E11.65 Type 2 diabetes mellitus with hyperglycemia; E87.5 Hyperkalemia; E66.01 Morbid (severe) obesity due to excess calories; E86.0 Dehydration; I34.0 Nonrheumatic mitral (valve) insufficiency; N18.3 Chronic kidney disease, stage 3 (moderate); R00.1 Bradycardia, unspecified; Y71.2 Prosthetic and other implants, materials and accessory cardiovascular devices associated with adverse incidents; E78.5 Hyperlipidemia, unspecified; I25.10 Atherosclerotic heart disease of native coronary artery without angina pectoris; I95.1 Orthostatic hypotension; K21.9 Gastro-esophageal reflux disease without esophagitis; M81.0 Age-related osteoporosis without current pathological fracture; G89.29 Other chronic pain; M54.9 Dorsalgia, unspecified; Z68.33 Body mass index [BMI] 33.0-33.9, adult; Z79.02 Long term (current) use of antithrombotics/antiplatelets; Z79.82 Long term (current) use of aspirin; Z79.890 Hormone replacement therapy; Z79.899 Other long term (current) drug therapy; Z95.5 Presence of coronary angioplasty implant and graft; Z95.1 Presence of aortocoronary bypass graft; Z90.710 Acquired absence of both cervix and uterus; Z90.49 Acquired absence of other specified parts of digestive tract; Z80.51 Family history of malignant neoplasm of kidney; Z82.49 Family history of ischemic heart disease and other diseases of the circulatory system
CPT/HCPCS: 36415; 71045; 71046; 80048; 80053; 81003; 83036; 83605; 83735; 84484; 85025; 85610; 85730; 87040; 93005; 93306; 93312; 93320; 93325; 94640; 94760; 96361; 96374; 99291

== ENCOUNTER → 2019-01-13 | Outpatient (CLI) | payer MEDICARE ==
[2019-01-13 16:48] LABS: Basophils # (A) 0.1 k/uL (0-0.2); Basophils % (A) 1 %; Eosinophils # (A) 0.3 k/uL (0-0.7); Eosinophils % (A) 3 %; HCT 36.9 % (34.0-46.0); HGB 12.2 gm/dL (11.4-16.0); Lymphocytes % (A) 17 %; MCH 30.1 pg (25.0-35.0); MCHC 32.9 g/dL (31.0-37.0); MCV 91.4 fL (80.0-100.0); Mean Platelet Volume 6.5; Monocytes # (A) 0.6 k/uL (0-1.0); Monocytes % (A) 5 %; Neutrophils # (A) 8.7 k/uL (1.3-7.7); Neutrophils % (A) 73 %; Platelet Count 296 k/uL (150-450); RBC 4.04 m/uL (3.80-5.40); RDW 13.9 % (11.5-15.5)
[2019-01-13 16:50] LABS: Appearance,Urine Clear (Clear); Bilirubin,Urine Negative (Negative); Blood,Urine Negative (Negative); Color,Urine Light Yellow; Glucose,Urine (UA) Negative (Negative); Ketones,Urine Negative (Negative); Leukocyte Esterase,Urine Negative (Negative); Nitrite,Urine Negative (Negative); Protein,Urine Negative (Negative); Specific Gravity,Urine 1.005 (1.001-1.035); Urobilinogen,Urine <2.0 mg/dL (<2.0)
[2019-01-14 01:09] LABS: African American GFR (CKD) 42.5 (60.0-200.0); Anion Gap 9.9 mmol/L (4.00-12.00); BUN/Creat Ratio 11.43 Ratio (12.00-20.00); Carbon Dioxide 29.1 mmol/L (21.6-31.8); Potassium 4.6 mmol/L (3.5-5.5); Uric Acid 5.9 mg/dL (2.9-7.7)
[2019-01-14 01:17] LABS: Ferritin 222.5 ng/mL (10.0-291.0)
== END | disposition home or self-care (01) ==
LOC: LABWHC1 14:23
PROVIDERS: ATTEND Nurse Practitioner Family
DX: E79.0 Hyperuricemia without signs of inflammatory arthritis and tophaceous disease (principal); N18.3 Chronic kidney disease, stage 3 (moderate)
CPT/HCPCS: 36415; 80048; 81003; 82043; 82570; 82728; 83540; 83550; 84550; 85025

== ENCOUNTER → 2019-02-10 | Outpatient (CLI) | payer MEDICARE ==
--- NOTE | 2019-02-10 13:36 | XR ---
EXAMINATION TYPE: XR cervical spine comp DATE OF EXAM: 02/10/2019 COMPARISON: NONE HISTORY: Pain TECHNIQUE: Four views are submitted. FINDINGS: The odontoid is intact. There are no compression deformities. The prevertebral soft tissue structur es are within normal limits. Hypertrophic and degenerative changes C6-C7 and C7-T1. Facet arthropath y noted. Calcification the soft tissue the neck likely related carotid arteries. Postsurgical changes involving the mediastinum. IMPRESSION: 1. Degenerative disc disease lower lumbar spine consider follow-up MRI..
== END | disposition home or self-care (01) ==
LOC: RADXRMAIN 12:45
PROVIDERS: ATTEND Family Medicine
DX: M51.36 Other intervertebral disc degeneration, lumbar region (principal)
CPT/HCPCS: 72050

== ENCOUNTER → 2019-04-19 | Outpatient (CLI) | payer MEDICARE ==
[2019-04-19 16:40] LABS: HCT 36.9 % (34.0-46.0); HGB 11.9 gm/dL (11.4-16.0); MCH 29.8 pg (25.0-35.0); MCHC 32.3 g/dL (31.0-37.0); MCV 92.2 fL (80.0-100.0); Mean Platelet Volume 8.1; Platelet Count 274 k/uL (150-450); RDW 14.3 % (11.5-15.5); WBC 12.4 k/uL (3.8-10.6)
[2019-04-19 23:43] LABS: Albumin 4.4 g/dL (3.80-4.90); BUN/Creat Ratio 10.95 Ratio (12.00-20.00); Calcium 9.2 mg/dL (8.7-10.3); Globulin 2.2 g/dL (1.6-3.3); Non-African American GFR(CKD) 22.5 (60.0-200.0); Potassium 4.8 mmol/L (3.5-5.5); Total Bilirubin 0.3 mg/dL (0.3-1.2); Total Protein 6.6 g/dL (6.2-8.2)
== END ==
LOC: LABWHC1 15:28
PROVIDERS: ATTEND Family Medicine
DX: D64.9 Anemia, unspecified (principal); I10 Essential (primary) hypertension; E03.9 Hypothyroidism, unspecified
CPT/HCPCS: 36415; 80053; 83880; 84443; 85027

== ENCOUNTER 2019-07-26 13:33 | Emergency (ER) | payer MEDICARE ==
[2019-07-26 13:40] VITALS: TEMP 98.4
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
--- NOTE | 2019-07-26 14:58 | US ---
EXAMINATION TYPE: US venous doppler duplex LE LT DATE OF EXAM: 07/26/2019 1:54 PM COMPARISON: NONE CLINICAL HISTORY: pain, swelling. SIDE PERFORMED: Left TECHNIQUE: The lower extremity deep venous system is examined utilizing real time linear array sonog avinash with graded compression, doppler sonography and color-flow sonography. VESSELS IMAGED: External Iliac Vein (EIV) Common Femoral Vein Deep Femoral Vein Greater Saphenous Vein * Femoral Vein Popliteal Vein Small Saphenous Vein * Proximal Calf Veins (* superficial vessels) Left Leg: Negative for DVT Grayscale, color doppler, spectral doppler imaging performed of the deep veins of the left lower extr emity. There is normal flow, compressibility, vascular waveforms. IMPRESSION: No sonographic evidence of deep venous thrombosis within the left lower extremity.
[2019-07-26 15:24] VITALS: BP 141/79; PULSE 88; RESP 18
== END 2019-07-26 15:23 | disposition home or self-care (01) ==
LOC: EC 13:33
DX: M79.89 Other specified soft tissue disorders (principal); S91.002A Unspecified open wound, left ankle, initial encounter; I25.10 Atherosclerotic heart disease of native coronary artery without angina pectoris; I11.0 Hypertensive heart disease with heart failure; I50.9 Heart failure, unspecified; J44.9 Chronic obstructive pulmonary disease, unspecified; E11.9 Type 2 diabetes mellitus without complications; E78.5 Hyperlipidemia, unspecified; I25.2 Old myocardial infarction; Z95.1 Presence of aortocoronary bypass graft; Z95.2 Presence of prosthetic heart valve; Z95.818 Presence of other cardiac implants and grafts; Z96.89 Presence of other specified functional implants; Z79.4 Long term (current) use of insulin; Z79.82 Long term (current) use of aspirin; Z79.890 Hormone replacement therapy; Z79.899 Other long term (current) drug therapy; Z88.0 Allergy status to penicillin
CPT/HCPCS: 99283

== ENCOUNTER → 2019-08-03 | Outpatient (CLI) | payer MEDICARE ==
[2019-08-03 12:30] LABS: Appearance,Urine Cloudy (Clear); Bilirubin,Urine Negative (Negative); Blood,Urine Negative (Negative); Color,Urine Light Yellow; Glucose,Urine (UA) 1+ (Negative); Ketones,Urine Negative (Negative); Leukocyte Esterase,Urine Negative (Negative); Mucus,Urine Rare /hpf; Nitrite,Urine Negative (Negative); PH, Urine 5.5 (5.0-8.0); Protein,Urine Negative (Negative); RBC,Urine 1 /hpf (0-5); Squamous Epithelial Cell,Urine 6 /hpf (0-4); Urobilinogen,Urine <2.0 mg/dL (<2.0); WBC,Urine 2 /hpf (0-5)
[2019-08-03 12:47] LABS: Basophils # (A) 0.1 k/uL (0-0.2); Basophils % (A) 1 %; Eosinophils # (A) 0.3 k/uL (0-0.7); Eosinophils % (A) 3 %; HCT 36.2 % (34.0-46.0); HGB 11.1 gm/dL (11.4-16.0); Lymphocytes # (A) 1.7 k/uL (1.0-4.8); Lymphocytes % (A) 16 %; MCH 29.3 pg (25.0-35.0); MCHC 30.8 g/dL (31.0-37.0); MCV 94.9 fL (80.0-100.0); Mean Platelet Volume 7.7; Monocytes # (A) 0.6 k/uL (0-1.0); Monocytes % (A) 5 %; Neutrophils % (A) 74 %; Platelet Count 278 k/uL (150-450); RBC 3.81 m/uL (3.80-5.40); WBC 10.8 k/uL (3.8-10.6)
[2019-08-03 19:32] LABS: % Iron Saturation 40.34 (12.00-45.00); African American GFR (CKD) 33.6 (60.0-200.0); Anion Gap 11.7 mmol/L (4.00-12.00); BUN/Creat Ratio 11.76 Ratio (12.00-20.00); Calcium 8.6 mg/dL (8.7-10.3); Carbon Dioxide 23.3 mmol/L (21.6-31.8); Potassium 4.3 mmol/L (3.5-5.5); Uric Acid 8.8 mg/dL (2.9-7.7)
[2019-08-03 19:39] LABS: Ferritin 203.8 ng/mL (10.0-291.0)
[2019-08-03 20:55] LABS: Microalbumin Creatinine Ratio <30 mg/g Creat (0-30); Urine Creatinine 105.5 mg/dL
== END | disposition home or self-care (01) ==
LOC: LABWHC1 11:50
PROVIDERS: ATTEND Internal Medicine Nephrology
DX: E79.0 Hyperuricemia without signs of inflammatory arthritis and tophaceous disease (principal); N18.3 Chronic kidney disease, stage 3 (moderate)
CPT/HCPCS: 36415; 80048; 81001; 82043; 82570; 82728; 83540; 83550; 84550; 85025

== ENCOUNTER → 2020-03-22 | Outpatient (CLI) | payer MEDICARE ==
--- NOTE | 2020-03-22 10:58 | US ---
EXAMINATION TYPE: US venous doppler duplex LE DATE OF EXAM: 03/22/2020 10:36 AM COMPARISON: NONE CLINICAL HISTORY: I70.213 Intermittent claudication leonardo low ext. pain bilateral legs SIDE PERFORMED: bilateral TECHNIQUE: The lower extremity deep venous system is examined utilizing real time linear array sonog avinash with graded compression, doppler sonography and color-flow sonography. VESSELS IMAGED: Common Femoral Vein Deep Femoral Vein Greater Saphenous Vein * Femoral Vein Popliteal Vein Small Saphenous Vein * Proximal Calf Veins (* superficial vessels) Right Leg: no evidence of DVT Left Leg: no evidence of DVT IMPRESSION: 1. Bilateral lower extremity ultrasound negative for deep venous thrombosis.
== END | disposition home or self-care (01) ==
LOC: RADUSWWP 10:12
PROVIDERS: ATTEND Family Medicine
DX: I70.213 Atherosclerosis of native arteries of extremities with intermittent claudication, bilateral legs (principal); M79.661 Pain in right lower leg; M79.662 Pain in left lower leg
CPT/HCPCS: 93970

== ENCOUNTER → 2020-09-21 | Outpatient (CLI) | payer MEDICARE ==
--- NOTE | 2020-09-21 10:13 | US ---
EXAMINATION TYPE: US abdomen complete DATE OF EXAM: 09/21/2020 COMPARISON: CT & US 2018 CLINICAL HISTORY: R10.9 ABD PAIN. Abdomen pain x 3 months EXAM MEASUREMENTS: Liver Length: 15.3 cm Gallbladder Wall: 0.2 cm CBD: 0.5 cm Spleen: 10.8 cm Right Kidney: 8.8 x 5.2 x 6.1 cm Left Kidney: 10.8 x 4.6 x 5.8 cm Difficult and limited study due to patient body habitus Pancreas: visualized portions wnl, limited by overlying midline bowel gas Liver: mildly heterogeneous Gallbladder: wnl Evidence for sonographic Rose's sign: no CBD: visualized portions wnl, Spleen: wnl Right Kidney: measures small in size, cortical thinning Left Kidney: cortical thinning Upper IVC: wnl Abd Aorta: proximal portion wnl, mid and distal obscured by overlying midline bowel gas The liver is homogenous. The intrahepatic portion of the IVC and proximal abdominal aorta are within normal limits. There is no evidence of cholelithiasis. Common bile duct is unremarkable. The visu alized portions of the pancreas are homogenous. The spleen is unremarkable. Kidneys are symmetric a nd free of hydronephrosis. No renal lesions are seen. IMPRESSION: 1. Bilateral renal cortical thinning is nonspecific but most commonly seen with chronic medical renal disease. 2. Nonspecific heterogeneity of the liver without focal lesion seen.
== END | disposition home or self-care (01) ==
LOC: RADUSWWP 08:55
PROVIDERS: ATTEND Family Medicine
DX: N28.89 Other specified disorders of kidney and ureter (principal); K76.89 Other specified diseases of liver
CPT/HCPCS: 76700

== ENCOUNTER 2020-11-19 12:25 | Day surgery (SDC) | payer MEDICARE ==
[2020-11-14 13:41] VITALS: BMI 34.9
[~2020-11-19 12:25] MED LIST changes: -ALPRAZolam 0.25 MG TAB PO PRN; -ALPRAZolam 0.5 MG TAB PO PRN; -ASPIRIN 325 MG TAB PO STA; -ATORVASTATIN 80 MG TAB PO STA; +LACTATED RINGERS 1,000 ML IV SCH; -NITROGLYCERIN SL TABS 0.4 MG TAB SUBLINGUAL PRN; -SODIUM CHLORIDE 0.9% 1,000 ML in EMPTY BAG 1 BAG IV ONE
[2020-11-19 12:47] VITALS: TEMP 97.8
[2020-11-19] MEDS ORDERED: LACTATED RINGERS 1,000 ML IV ONE (12:47)
[2020-11-19 12:54] LABS: Glucose,Whole Blood 145 mg/dL (75-99)
[2020-11-19] MEDS ORDERED: PROPOFOL 10 MG/ML 20 ML VIAL IV ONE (14:38)
[2020-11-19] MEDS ORDERED: LIDOCAINE 1% INJ 10MG/ML (20 ML MDV) ONE (14:38)
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
--- NOTE | 2020-11-19 15:08 | P.OP ---
Date of Procedure: 11/19/20 Preoperative Diagnosis: GERD Screening colonoscopy Postoperative Diagnosis: Antral gastritis Transverse colon polyp Mild diverticulosis Procedure(s) Performed: EGD Colonoscopy Anesthesia: MAC Surgeon: Melvin Mcdermott Pathology: other (Antrum, transverse colon polyp) Disposition: PACU Description of Procedure: Patient's placed on the endoscopy table lateral position she received IV sedation. The gastroscope placed oropharynx passed in the esophagus and stomach. Scope was placed through the pylorus. The first and second portion of the duodenum was normal. Scope was then brought back the antrum this was mildly inflamed. A biopsies performed. The scope was unretroflexed and remainder of the stomach appeared normal. There was no hiatal hernia. GE junction was at 40 cm per the distal esophagus. Normal. Proximal esophagus. Normal. Scope was withdrawn for patient. Next digital rectal exam was performed which revealed no evidence for possible colonoscope was then placed patient anus and passed throughout the entire colon. The ileocecal valve visualized. The cecum, ascending and transverse colon appeared normal. In the distal transverse colon there was a peduncular polyp and this was removed with snare. The remainder the descending colon was examined and there was a few scattered diverticula. Scope summer back the rectum this appeared normal. The patient.
[2020-11-19 15:11] VITALS: BP 143/81; RESP 16
[2020-11-19 15:24] VITALS: PULSE 67
[2020-11-19 15:30] LABS: Glucose,Whole Blood 136 mg/dL (75-99)
== END 2020-11-19 15:49 | disposition home or self-care (01) ==
LOC: ORWHC2ENDO 12:25
PROVIDERS: ATTEND Surgery
DX: Z12.11 Encounter for screening for malignant neoplasm of colon (principal); K29.50 Unspecified chronic gastritis without bleeding; K21.9 Gastro-esophageal reflux disease without esophagitis; D12.3 Benign neoplasm of transverse colon; E11.9 Type 2 diabetes mellitus without complications; E78.5 Hyperlipidemia, unspecified; I11.0 Hypertensive heart disease with heart failure; I50.9 Heart failure, unspecified; I25.10 Atherosclerotic heart disease of native coronary artery without angina pectoris; I25.2 Old myocardial infarction; J44.9 Chronic obstructive pulmonary disease, unspecified; M19.90 Unspecified osteoarthritis, unspecified site; E03.9 Hypothyroidism, unspecified; Z79.02 Long term (current) use of antithrombotics/antiplatelets; Z79.4 Long term (current) use of insulin; Z79.82 Long term (current) use of aspirin; Z82.49 Family history of ischemic heart disease and other diseases of the circulatory system; Z88.0 Allergy status to penicillin; Z90.49 Acquired absence of other specified parts of digestive tract; Z95.1 Presence of aortocoronary bypass graft; Z95.2 Presence of prosthetic heart valve; Z79.899 Other long term (current) drug therapy
CPT/HCPCS: 45385; 43239; 88305; J2001; J2704